=== PATIENT | male | born 1930 | race Caucasian/White ===

== ENCOUNTER 2016-05-20 14:03 | Inpatient (IN) | payer OTHER, MEDICARE ==
[2016-05-20] VITALS (8 sets, daily range): BP systolic 111–145; BP diastolic 62–83; PULSE 82–143; RESP 18–20; TEMP 96.8–98.2; O2SAT 75–100
[~2016-05-20] VITALS: Ht 180.3 cm; Wt 55.3 kg
[~2016-05-20 14:03] MED LIST: ECOT81TA2 PO; LEVO.1 PO; LISI-363 PO; METO25 PO; OMEP20CA5 PO; VITA-13 PO
[2016-05-20] MEDS ORDERED: SODIUM CHLOR 0.9% 1000 ML INJ 1,000 ML IV ONE ×2 (14:30→16:00)
[2016-05-20] MEDS ORDERED: DILTIAZEM HCL 25 MG/5 ML VIAL IV ONE (14:30)
[2016-05-20] MEDS: RESP: ALBUTEROL 2.5 MG/3 ML NEB (SCH) INH ×2 (14:39→14:40)
[2016-05-20 14:58] LABS: AUTOMATED NEUTROPHIL # 13.3 TH/MM3 (1.8-7.7); BASOPHIL % 0.2 % (0.0-2.0); EOSINOPHIL % 0.1 % (0.0-4.0); HEMATOCRIT 36.9 % (39.0-51.0); HEMO FLAGS DIFF FINAL; LYMPH % 7.3 % (9.0-44.0); LYMPHOCYTE # 1.1 TH/MM3 (1.0-4.8); MEAN CELL VOLUME 92.6 FL (80.0-100.0); MEAN CORPUSCULAR HEMOGLOBIN 30.6 PG (27.0-34.0); MEAN CORPUSCULAR HGB CONC 33.1 % (32.0-36.0); MONO % 6.3 % (0.0-8.0); NEUT % 86.1 % (16.0-70.0); PLATELET COUNT 208 TH/MM3 (150-450); RED BLOOD COUNT 3.99 MIL/MM3 (4.50-5.90); WHITE BLOOD COUNT 15.5 TH/MM3 (4.0-11.0)
[2016-05-20 15:12] LABS: APTT (PATIENT) 33.2 SEC (24.3-30.1); INTERNATIONAL NORMALIZED RATIO 1.2 RATIO; PROTHROMBIN TIME - PATIENT 13.1 SEC (9.8-11.6)
[2016-05-20 15:18] LABS: BICARBONATE 24.7 MEQ/L (21.0-32.0); POTASSIUM 3.5 MEQ/L (3.5-5.1)
--- NOTE | 2016-05-20 15:20 | PD ---
HPI Chief Complaint: General Weakness Time Seen by Provider: 15:11 Travel History International Travel<30 days: No Contact w/Intl Traveler<30days: No Traveled to known affect area: No History of Present Illness HPI 86-year-old white male presents to emergency department by EMS for evaluation of shortness of breath and weakness. The patient states that over last 2-3 days he has noted increasing shortness of breath, decreased exercise tolerance, increased cough and malaise. He has not been able to eat. Every time he attempts to eat he gags, chokes and vomits. He has a history of head and neck cancer. He has a tracheostomy. He denies any fever or chills. He does admit to feeling short of breath and having some colored sputum. Nausea with intermittent vomiting, generalized weakness but no focal weakness. He denies any abdominal pain or urinary symptoms. Symptoms are moderate PFSH Past Medical History Narrative Medical Depression, A. fib with RVR, head and neck cancer, vertigo, hypercholesterolemia , PUD, Asthma: No Blood Disorders: No Anxiety: No Depression: Yes Heart Rhythm Problems: Yes Cancer: Yes (NECK, TONGUE) Cardiovascular Problems: Yes (ATRIAL FIBRILLATION) High Cholesterol: Yes Chest Pain: No Congestive Heart Failure: No COPD: No Diabetes: No Diminished Hearing: Yes Endocrine: Yes Gastrointestinal Disorders: Yes (STOMACH ULCER) Glaucoma: No Genitourinary: No Hepatitis: No Hiatal Hernia: No Hypertension: Yes Immune Disorder: No Implanted Vascular Access Dvce: Yes Medical other: Yes (HAS PROSTHESIS IN STOMA ALLOWING HIM TO TALK,ELEVATED CHOLESTEROL) Musculoskeletal: Yes (EXTREME WEAKNESS) Neurologic: Yes (HX VERTIGO, HEADACHES) Psychiatric: Yes Reproductive: No Respiratory: Yes (TRACHEOSTOMY-LEFT RADICAL NECK) Sleep Apnea: No Thyroid Disease: Yes Tetanus Vaccination: Unknown ?: Not Past Surgical History Narrative Surgical Head and neck cancer treatment with tracheostomy, bilateral knee surgery, Abdominal Surgery: Yes (RIGHT INGUINAL HERNIA REPAIR X 2, PARTIAL GASTRECTOMY) AICD: No Body Medical Devices: METAL IN KNEES?, STOMA WITH PROSTHESIS IN NECK, partial gastrectomy Eye Surgery: Yes (NOEMY CATARACT) Genitourinary Surgery: No Joint Replacement: No Neurologic Surgery: Yes (LARYNGECTOMY,TRACHEOSTOMY) Pacemaker: No Other Surgery: Yes (PARTIAL GASTRECTOMY) Social History Alcohol Use: Yes (2 BEERS DAILY) Tobacco Use: No Substance Use: No Allergies-Medications (Allergen,Severity, Reaction): Coded Allergies: Contrast Media (Verified Allergy, Severe, IV IODINE CAUSED HIVES, 02/27/16) Iodine (Verified Allergy, Severe, HIVES, 02/27/16) Reported Meds & Prescriptions Reported Meds & Active Scripts Active Reported Lasix (Furosemide) 20 Mg Tab 20 Mg PO DAILY Aspirin Adult Low Strength (Aspirin) 81 Mg Tabdr 81 Mg PO DAILY Omeprazole 20 Mg Tab 20 Mg PO DAILY Metoprolol Tartrate 50 Mg Tab 25 Mg PO BID Levothyroxine (Levothyroxine Sodium) 100 Mcg Tab 100 Mcg PO DAILY Vitamin D3 (Cholecalciferol) 1,000 Unit Tab 1,000 Units PO DAILY Lisinopril 40 Mg Tab 20 Mg PO BID Meclizine (Meclizine HCl) 12.5 Mg Tab 12.5 Mg PO TID PRN Review of Systems ROS Limitations: Speech Impaired Physical Exam Narrative GENERAL: Well-developed, chronically ill-appearing and emaciated in mild distress. Nontoxic appearing. Patient is noted to be in A. fib with RVR on the monitor. The patient has spontaneously converted to a sinus rhythm during his exam. HEAD: Normocephalic, atraumatic. EYES: Pupils equal round and reactive. Extraocular motions intact. No scleral icterus. No injection or drainage. ENT: Nose clear. Throat without erythema, tonsillar hypertrophy or exudate. Uvula midline. Airway patent. Mucous membranes are dry. NECK: Trachea midline. Supple, nontender, moves head freely. No central bony tenderness or spasm. CARDIOVASCULAR: Tachycardic rate. Which spontaneously converts to sinus rhythm with a normal rate. Occasional skipped beats RESPIRATORY: Overall diminished breath sounds. Unable to truly assess Rales due to lack of air movement. GASTROINTESTINAL: Abdomen soft, non-tender, nondistended. No hepato-splenomegaly , or palpable masses. No guarding. EXTREMITIES: No clubbing, cyanosis, or edema. No joint tenderness. BACK: Nontender without deformity. No flank tenderness. NEUROLOGICAL: Awake, alert and oriented x 3 . Communicates using a dry erase board.Cranial nerves grossly intact. Motor and sensory grossly within normal limits. Nonverbal. Data Data Last Documented VS Vital Signs Date Time Temp Pulse Resp B/P Pulse Ox O2 Delivery O2 Flow Rate FiO2 05/20/16 15:50 102 18 111/62 94 Trach Collar 05/20/16 14:42 6.00 50 05/20/16 14:39 98.2 Orders Diltiazem Inj (Cardizem Inj) (05/20/16 14:30) Sodium Chlor 0.9% 1000 Ml Inj (Ns 1000 M (05/20/16 14:30) Resp Request For Service (05/20/16 14:26) Electrocardiogram (05/20/16 14:26) Complete Blood Count With Diff (05/20/16 14:26) Comprehensive Metabolic Panel (05/20/16 14:26) Troponin I (05/20/16 14:26) Prothrombin Time / Inr (Pt) (05/20/16 14:26) Act Partial Throm Time (Ptt) (05/20/16 14:26) Lipase (05/20/16 14:26) Urinalysis - C+S If Indicated (05/20/16 14:26) Chest, Single Ap (05/20/16 14:26) Iv Access Insert/Monitor (05/20/16 14:26) Ecg Monitoring (05/20/16 14:26) Oximetry (05/20/16 14:26) Albuterol Neb (Albuterol Neb) (05/20/16 14:30) Lactic Acid (05/20/16 14:26) B-Type Natriuretic Peptide (05/20/16 14:30) Sputum Culture And Gram Stain (05/20/16 15:47) Piperacil-Tazo 4.5 Gm Premix (Zosyn 4.5 (05/20/16 15:47) Blood Culture (05/20/16 15:47) Sodium Chlor 0.9% 1000 Ml Inj (Ns 1000 M (05/20/16 16:00) Labs Laboratory Tests Test 05/20/16 05/20/16 05/20/16 14:32 14:55 15:43 White Blood Count 15.5 TH/MM3 Red Blood Count 3.99 MIL/MM3 Hemoglobin 12.2 GM/DL Hematocrit 36.9 % Mean Corpuscular Volume 92.6 FL Mean Corpuscular Hemoglobin 30.6 PG Mean Corpuscular Hemoglobin 33.1 % Concent Red Cell Distribution Width 14.0 % Platelet Count 208 TH/MM3 Mean Platelet Volume 7.7 FL Neutrophils (%) (Auto) 86.1 % Lymphocytes (%) (Auto) 7.3 % Monocytes (%) (Auto) 6.3 % Eosinophils (%) (Auto) 0.1 % Basophils (%) (Auto) 0.2 % Neutrophils # (Auto) 13.3 TH/MM3 Lymphocytes # (Auto) 1.1 TH/MM3 Monocytes # (Auto) 1.0 TH/MM3 Eosinophils # (Auto) 0.0 TH/MM3 Basophils # (Auto) 0.0 TH/MM3 CBC Comment DIFF FINAL Differential Comment Prothrombin Time 13.1 SEC Prothromb Time International 1.2 RATIO Ratio Activated Partial 33.2 SEC Thromboplast Time Sodium Level 137 MEQ/L Potassium Level 3.5 MEQ/L Chloride Level 98 MEQ/L Carbon Dioxide Level 24.7 MEQ/L Anion Gap 14 MEQ/L Blood Urea Nitrogen 12 MG/DL Creatinine 0.70 MG/DL Estimat Glomerular Filtration 107 ML/MIN Rate Random Glucose 72 MG/DL Calcium Level 7.1 MG/DL Protein Corrected Calcium 8.3 MG/DL Total Bilirubin 0.7 MG/DL Aspartate Amino Transf 21 U/L (AST/SGOT) Alanine Aminotransferase 20 U/L (ALT/SGPT) Alkaline Phosphatase 118 U/L Troponin I 0.03 NG/ML Total Protein 4.9 GM/DL Albumin 1.9 GM/DL Lipase 52 U/L Lactic Acid Level 2.8 mmol/L Urine Color YELLOW Urine Turbidity CLEAR Urine pH 5.0 Urine Specific [place] 1.017 Urine Protein 30 mg/dL Urine Glucose (UA) NEG mg/dL Urine Ketones 10 mg/dL Urine Occult Blood NEG Urine Nitrite NEG Urine Bilirubin NEG Urine Urobilinogen 2.0 MG/DL Urine Leukocyte Esterase NEG Urine RBC 2 /hpf Urine WBC 2 /hpf Urine Squamous Epithelial 1 /hpf Cells Urine Hyaline Casts 9 /lpf Urine Mucus FEW /lpf Microscopic Urinalysis Comment CULT NOT INDICATED MDM Medical Decision Making Medical Screen Exam Complete: Yes Emergency Medical Condition: Yes Interpretation(s) Laboratory Tests Test 05/20/16 05/20/16 05/20/16 14:32 14:55 15:43 White Blood Count 15.5 TH/MM3 Red Blood Count 3.99 MIL/MM3 Hemoglobin 12.2 GM/DL Hematocrit 36.9 % Mean Corpuscular Volume 92.6 FL Mean Corpuscular Hemoglobin 30.6 PG Mean Corpuscular Hemoglobin 33.1 % Concent Red Cell Distribution Width 14.0 % Platelet Count 208 TH/MM3 Mean Platelet Volume 7.7 FL Neutrophils (%) (Auto) 86.1 % Lymphocytes (%) (Auto) 7.3 % Monocytes (%) (Auto) 6.3 % Eosinophils (%) (Auto) 0.1 % Basophils (%) (Auto) 0.2 % Neutrophils # (Auto) 13.3 TH/MM3 Lymphocytes # (Auto) 1.1 TH/MM3 Monocytes # (Auto) 1.0 TH/MM3 Eosinophils # (Auto) 0.0 TH/MM3 Basophils # (Auto) 0.0 TH/MM3 CBC Comment DIFF FINAL Differential Comment Prothrombin Time 13.1 SEC Prothromb Time International 1.2 RATIO Ratio Activated Partial 33.2 SEC Thromboplast Time Sodium Level 137 MEQ/L Potassium Level 3.5 MEQ/L Chloride Level 98 MEQ/L Carbon Dioxide Level 24.7 MEQ/L Anion Gap 14 MEQ/L Blood Urea Nitrogen 12 MG/DL Creatinine 0.70 MG/DL Estimat Glomerular Filtration 107 ML/MIN Rate Random Glucose 72 MG/DL Calcium Level 7.1 MG/DL Protein Corrected Calcium 8.3 MG/DL Total Bilirubin 0.7 MG/DL Aspartate Amino Transf 21 U/L (AST/SGOT) Alanine Aminotransferase 20 U/L (ALT/SGPT) Alkaline Phosphatase 118 U/L Troponin I 0.03 NG/ML Total Protein 4.9 GM/DL Albumin 1.9 GM/DL Lipase 52 U/L Lactic Acid Level 2.8 mmol/L Urine Color YELLOW Urine Turbidity CLEAR Urine pH 5.0 Urine Specific [place] 1.017 Urine Protein 30 mg/dL Urine Glucose (UA) NEG mg/dL Urine Ketones 10 mg/dL Urine Occult Blood NEG Urine Nitrite NEG Urine Bilirubin NEG Urine Urobilinogen 2.0 MG/DL Urine Leukocyte Esterase NEG Urine RBC 2 /hpf Urine WBC 2 /hpf Urine Squamous Epithelial 1 /hpf Cells Urine Hyaline Casts 9 /lpf Urine Mucus FEW /lpf Microscopic Urinalysis Comment CULT NOT INDICATED CBC & BMP Diagram 05/20/16 14:32 Last 24 hours Impressions Chest X-Ray 05/20/16 1426 Signed Impressions: Service Date/Time: Friday, May 20, 2016 14:52 - CONCLUSION: Hyperaeration suggesting COPD. Subtle nonspecific slight increased opacity in lung bases which could represent small effusion or parenchymal process Anastacio Young MD EKG: A. fib with a ventricular rate of 96. Left bundle branch block, LVH by voltage criteria. Differential Diagnosis Differential diagnoses: Aspiration pneumonia, pneumonia, CHF, mucous plugging, A. fib with RVR, high out failure, PA, dehydration, likely abnormality, bowel obstruction, esophageal stricture Narrative Course IV access is obtained. Patient's given a liter bolus of saline. Initially had ordered 10 mg of Cardizem IV for his A. fib with RVR but he spontaneously resolved. Routine laboratory tests. Stoma mask with aerosolized saline and albuterol. EKG now shows a ventricular rate of 96 with atrial fibrillation, LVH and left bundle-branch block. Patient has had a total 2 blood cultures drawn, he has a mildly elevated lactic acid at 2.6. The patient is given Zosyn IV. He has had a total of 2 L of normal saline IV. A sputum culture has also been sent. The patient is having difficulty taking oral intake, he is having episodes of vomiting. There is some concern that he potentially could have an early developing aspiration. He had diminished breath sounds on presentation and he also had been complaining of dyspnea. This is sepsis, leukocytosis, history of A. fib with RVR, dyspnea, dehydration I discussed the case with Dr. Vo who is agreed to admit the patient Diagnosis Primary Impression: Sepsis Qualified Code: A41.9 - Sepsis, due to unspecified organism Additional Impressions: Leukocytosis Qualified Code: D72.829 - Leukocytosis, unspecified type Dyspnea Qualified Code: R06.02 - Shortness of breath Dysphasia Atrial fibrillation with RVR Throat cancer Condition: Stable Yoav Ty May 20, 2016 15:20
[2016-05-20 15:24] LABS: CALCIUM-PROTEIN CORRECTED 8.3 MG/DL (8.5-10.1); TOTAL BILIRUBIN ADULT 0.7 MG/DL (0.2-1.0)
[2016-05-20] MEDS ORDERED: LISI40TA PO (15:28)
[2016-05-20] MEDS ORDERED: OMEP20TA PO (15:28)
[2016-05-20] MEDS ORDERED: MECL12.574 PO (15:28)
[2016-05-20] MEDS ORDERED: METO50TA PO (15:28)
[2016-05-20] MEDS ORDERED: VITA100018 PO (15:28)
[2016-05-20] MEDS ORDERED: LEVO100T5 PO (15:28)
[2016-05-20] MEDS ORDERED: FURO1TAB62 PO (15:28)
[2016-05-20] MEDS ORDERED: ASPI1TAB91 PO (15:28)
--- NOTE | 2016-05-20 15:29 | RADRPT ---
EXAM DATE/TIME: 05/20/2016 14:52 [facility] COMPARISON: CHEST SINGLE AP, January 29, 2016, 21:02. INDICATIONS : Short of breath. MEDICAL HISTORY : Tongue and neck cancer SURGICAL HISTORY : Tongue and neck. ENCOUNTER: Initial ACUITY: 1 day PAIN SCORE: 0/10 LOCATION: Bilateral chest FINDINGS: Relative to prior examination there is again noted to be hyperaeration. There is a sugg estion of increased density in the bases which could represent subtle parenchymal or effusion changes CONCLUSION: Hyperaeration suggesting COPD. Subtle nonspecific slight increased opacity in lung ba ses which could represent small effusion or parenchymal process Anastacio Young MD on May 20, 2016 at 15:25 Board Certified Radiologist. This report was verified electronically.
[2016-05-20] MEDS ORDERED: PIPERACIL-TAZO 4.5 GM PREMIX 100 ML IV STA (15:47)
[2016-05-20 16:09] LABS: BLOOD, URINE NEG (NEG); COMMENT (UR) CULT NOT INDICATED; CULTURE IF INDICATED CULT NOT INDICATED; GLUCOSE,URINE NEG (NEG); HYALINE CAST, URINE 9 /lpf (RARE); KETONE, URINE 10 mg/dL (NEG); MUCUS URINE FEW /lpf (OCC); NITRITE,URINE NEG (NEG); SQUAMOUS EPITHELIAL CELL URINE 1 /hpf (0-5); URINE COLOR YELLOW (YELLW/STRAW)
[2016-05-20] MEDS ORDERED: SODIUM CHLOR 0.9% 1000 ML INJ 1,000 ML IV SCH (18:16)
[2016-05-20] MEDS ORDERED: SODIUM CHLORIDE 0.9% FLUSH 5 ML FLUSH FLUSH PRN (18:30)
[2016-05-20] MEDS ORDERED: DEXT 5%-NACL 0.9% 1000 ML INJ 1,000 ML IV SCH (18:30)
[2016-05-20] MEDS ORDERED: SENNOSIDES 8.6 MG TAB PO PRN (18:30)
[2016-05-20] MEDS ORDERED: NALOXONE HCL 0.4 MG/ML AMP IV PRN (18:30)
[2016-05-20] MEDS: DOCUSATE SODIUM 100 MG CAP PO SCH (18:30)
[2016-05-20] MEDS ORDERED: ACETAMINOPHEN 325 MG TAB PO PRN ×2 (18:30)
[2016-05-20] MEDS: SODIUM CHLORIDE 0.9% FLUSH 5 ML FLUSH FLUSH SCH (21:00)
[2016-05-21] VITALS (7 sets, daily range): BP systolic 115–153; BP diastolic 68–85; PULSE 62–97; RESP 16–24; TEMP 95.3–96.6; O2SAT 95–98
--- NOTE | 2016-05-21 02:10 | HHI.HP ---
[facility] Vamshi Wade M.D. Admission Diagnosis sepsis, leukocytosis, history of A. fib with RVR, dyspnea, dehydrati Diagnoses: Chief Complaint: Cannot get up for more than 5 seconds, not able to walk for more than 15 steps, gets dizzy whenever and lift my head up. Urine frequency Travel History International Travel<30 Days: No Contact w/Intl Traveler <30 Da: No Traveled to Known Affected Are: No History of Present Illness History from patient, ER PA communication, and review of medical records. Patient reported that he came to the hospital because he has not been able to get out of bed for more than 5 seconds, not able to walk for more than 15 steps , with associated dizziness every time he moves his head up and down. He also stated that every time he tries to get up, his heart rate would go very high. He reports that he did have surgery done for the head and neck cancer. He is noted to be on tracheostomy. She states that she has been on it for at least past one year. His cancer was diagnosed 30 years ago. He states that he sees his ENT doctor for this tracheostomy and did have to go through dilations because of the stoma being too narrow. He does report sometimes food getting stuck there. Patient reports that he was being offered feeding tube by his doctor for PEG tube placement previously. However he is initially not agreeable to this and he was still continuing to take his medications and food by mouth. He denies any fever at home. Denies any significant cough. He is noted to be coughing though. He states this is chronic. Denies any nausea/vomiting/diarrhea/urinary burning or pain on urination. Next I denies any hematemesis/hematochezia/melena/hematuria. Patient reports he has been having this trach tube for the past 1 year. He reports he takes care of it himself at home. He has a appraiser oil and water who is 84 years old. However states that she is not able to care for him. He states he still driving. Review of Systems Constitutional: COMPLAINS OF: Fatigue, Weight loss, Dizziness, DENIES: Diaphoretic episodes, Fever, Weight gain, Night Sweats Endocrine: DENIES: Polydipsia, Polyuria, Polyphagia Respiratory: COMPLAINS OF: Cough, Wheezing, Sputum production, Shortness of breath, DENIES: Apneas, Snoring, Hemoptysis Cardiovascular: COMPLAINS OF: Syncope, DENIES: Chest pain, Palpitations, Dyspnea on Exertion, PND, Lower Extremity Edema, Orthopnea Gastrointestinal: DENIES: Abdominal pain, Black stools, Bloody stools, Constipation, Diarrhea, Nausea, Vomiting Genitourinary: DENIES: Urinary frequency, Urinary incontinence, Urgency, Hematuria, Dysuria, Nocturia, Testicular Swelling Musculoskeletal: COMPLAINS OF: Joint Swelling Hematologic/lymphatic: DENIES: Bruising, Lymphadenopathy Neurologic: DENIES: Abnormal gait, Headache, Localized weakness, Paresthesias, Seizures, Speech Problems, Tremor, Poor Balance Psychiatric: COMPLAINS OF: Confusion Past Family Social History Past Medical History head and neck ca - diagnosed 30 years ago. Status post chemotherapy, radiation therapy. trach placement for past one year. Hypertension Atrial fibrillation Hyperlipidemia CHFEF of 35-40% per echo in August 2015. Grade 1 diastolic heart failure as well. PUD Past Surgical History Tracheostomy placements Surgery for head and neck cancer Reported Medications meds list on emr reviewed Reported this was gone through with him. Allergies: Coded Allergies: Contrast Media (Verified Allergy, Severe, IV IODINE CAUSED HIVES, 02/27/16) Iodine (Verified Allergy, Severe, HIVES, 02/27/16) Family History Denies any family history of any medical conditions Social History He is to smoke cigarettes, quit many years ago. Denies any drug abuse. Reports he does drink alcohol. He states he does drink heavily. However does not really quantify how much. He states he has been drinking in the past 1 year. Denies any prior history of withdrawal. Physical Exam Vital Signs Vital Signs Date Time Temp Pulse Resp B/P Pulse Ox O2 Delivery O2 Flow Rate FiO2 05/20/16 22:30 99 Trach Collar 6.00 28 05/20/16 21:00 96.8 95 18 145/83 98 05/20/16 19:14 82 18 144/75 100 Trach Collar 6 05/20/16 18:28 96 Trach Collar 6.00 40 05/20/16 15:50 102 18 111/62 94 Trach Collar 05/20/16 14:42 97 Trach Collar 6.00 50 05/20/16 14:39 98.2 99 18 113/82 97 Trach Collar 6 05/20/16 14:39 98.1 88 18 113/82 98 Trach Collar 6 05/20/16 14:39 103 18 97 Trach Collar 6 05/20/16 14:24 97.6 143 20 113/82 93 Physical Exam GENERAL: This is a cachectic elderly gentleman in no apparent distress. SKIN: No rashes, ecchymoses or lesions. Cool and dry. HEAD: Atraumatic. Normocephalic. No temporal or scalp tenderness. Temporal wasting. EYES: Pupils equal round and reactive. Extraocular motions intact. No scleral icterus. No injection or drainage. ENT: Nose without bleeding, purulent drainage or septal hematoma. Throat without erythema, tonsillar hypertrophy or exudate. Uvula midline. Airway patent. NECK: Trachea midline. No JVD or lymphadenopathy. Supple, nontender, no meningeal signs. CARDIOVASCULAR: Regular rate and rhythm without murmurs, gallops, or rubs. RESPIRATORY: Clear to auscultation. Breath sounds equal bilaterally. No wheezes , rales, or rhonchi. GASTROINTESTINAL: Abdomen soft, non-tender, nondistended. No hepato-splenomegaly , or palpable masses. No guarding. MUSCULOSKELETAL: Extremities without clubbing, cyanosis, or edema. No joint tenderness, effusion, or edema noted. No calf tenderness. Negative Homans sign bilaterally. NEUROLOGICAL: Awake and alert. Motor and sensory grossly within normal limits. Normal speech. Laboratory Laboratory Tests Test 05/20/16 05/20/16 05/20/16 14:32 14:55 15:43 White Blood Count 15.5 Red Blood Count 3.99 Hemoglobin 12.2 Hematocrit 36.9 Mean Corpuscular Volume 92.6 Mean Corpuscular Hemoglobin 30.6 Mean Corpuscular Hemoglobin 33.1 Concent Red Cell Distribution Width 14.0 Platelet Count 208 Mean Platelet Volume 7.7 Neutrophils (%) (Auto) 86.1 Lymphocytes (%) (Auto) 7.3 Monocytes (%) (Auto) 6.3 Eosinophils (%) (Auto) 0.1 Basophils (%) (Auto) 0.2 Neutrophils # (Auto) 13.3 Lymphocytes # (Auto) 1.1 Monocytes # (Auto) 1.0 Eosinophils # (Auto) 0.0 Basophils # (Auto) 0.0 CBC Comment DIFF FINAL Differential Comment Prothrombin Time 13.1 Prothromb Time International 1.2 Ratio Activated Partial 33.2 Thromboplast Time Sodium Level 137 Potassium Level 3.5 Chloride Level 98 Carbon Dioxide Level 24.7 Anion Gap 14 Blood Urea Nitrogen 12 Creatinine 0.70 Estimat Glomerular Filtration 107 Rate Random Glucose 72 Calcium Level 7.1 Protein Corrected Calcium 8.3 Total Bilirubin 0.7 Aspartate Amino Transf 21 (AST/SGOT) Alanine Aminotransferase 20 (ALT/SGPT) Alkaline Phosphatase 118 Troponin I 0.03 B-Type Natriuretic Peptide 354 Total Protein 4.9 Albumin 1.9 Lipase 52 Lactic Acid Level 2.8 Urine Color YELLOW Urine Turbidity CLEAR Urine pH 5.0 Urine Specific [place] 1.017 Urine Protein 30 Urine Glucose (UA) NEG Urine Ketones 10 Urine Occult Blood NEG Urine Nitrite NEG Urine Bilirubin NEG Urine Urobilinogen 2.0 Urine Leukocyte Esterase NEG Urine RBC 2 Urine WBC 2 Urine Squamous Epithelial 1 Cells Urine Hyaline Casts 9 Urine Mucus FEW Microscopic Urinalysis Comment CULT NOT INDICATED Date/Time Procedure Status Source Growth 05/20/16 16:20 Gram Stain Received Sputum Expectorated Sputum Pending 05/20/16 16:20 Sputum Culture Received Sputum Expectorated Sputum Pending 05/20/16 16:20 Aerobic Blood Culture Received Blood Peripheral Pending 05/20/16 16:20 Anaerobic Blood Culture Received Blood Peripheral Pending Result Diagram: 05/20/16 1432 05/20/16 1432 Imaging Vital Signs Date Time Temp Pulse Resp B/P Pulse Ox O2 Delivery O2 Flow Rate FiO2 05/21/16 04:00 96.3 97 18 146/82 95 05/21/16 00:00 96.6 97 18 115/75 95 05/20/16 22:30 99 Trach Collar 6.00 28 05/20/16 21:00 96.8 95 18 145/83 98 05/20/16 19:14 82 18 144/75 100 Trach Collar 6 05/20/16 18:28 96 Trach Collar 6.00 40 05/20/16 15:50 102 18 111/62 94 Trach Collar 05/20/16 14:42 97 Trach Collar 6.00 50 05/20/16 14:39 98.2 99 18 113/82 97 Trach Collar 6 05/20/16 14:39 98.1 88 18 113/82 98 Trach Collar 6 05/20/16 14:39 103 18 97 Trach Collar 6 05/20/16 14:24 97.6 143 20 113/82 93 Assessment and Plan Problem List: (1) Dysphagia ICD Code: R13.10 Status: Acute (2) Protein calorie malnutrition ICD Code: E46 Status: Acute Assessment and Plan Impression: Dysphagia Cachexia Failure to thrive Symptomatic orthostatic hypotensionper history head and neck ca - diagnosed 30 years ago. Status post chemotherapy, radiation therapy. trach placement for past one year. Hypertension Atrial fibrillation CHFEF of 35-40% per echo in August 2015. Grade 1 diastolic heart failure as well. Hyperlipidemia PUD Plan: I have had long discussion with patient regarding his treatment options. I have explained to him in detail regarding the feeding tube. Patient is agreeable to have the feeding tube placement at this time. He would rather get it done while in hospital. He does have questions regarding insurance coverage. GI consult for PEG tube placement. Speech and swallow evaluation. Case management consult. Aspiration precautions. Physical therapy consult. DVT prophylaxiswith Lovenox. Discussed Condition With Patient, nursing staff Physician Certification 2 Midnight Certification Type: Admission for Inpatient Services Order for Inpatient Services The services are ordered in accordance with Medicare regulations or non- Medicare payer requirements, as applicable. In the case of services not specified as inpatient-only, they are appropriately provided as inpatient services in accordance with the 2-midnight benchmark. Estimated LOS (days): 3 days is the estimated time the patient will need to remain in the hospital, assuming treatment plan goals are met and no additional complications. Post-Hospital Plan: Home Campbell Yarbrough MD May 21, 2016 02:10
[2016-05-21] MEDS ORDERED: TEMAZEPAM 7.5 MG CAP PO ONE (02:15)
[2016-05-21] MEDS: DOCUSATE SODIUM 100 MG CAP PO SCH ×2 (06:30→18:25)
[2016-05-21 06:56] LABS: BICARBONATE 25.7 MEQ/L (21.0-32.0); CALCIUM-PROTEIN CORRECTED 8.3 MG/DL (8.5-10.1); TOTAL BILIRUBIN ADULT 0.8 MG/DL (0.2-1.0)
[2016-05-21 07:02] LABS: POTASSIUM 3.2 MEQ/L (3.5-5.1)
[2016-05-21 07:13] LABS: HEMATOCRIT 31.8 % (39.0-51.0); MEAN CELL VOLUME 89.9 FL (80.0-100.0); MEAN CORPUSCULAR HEMOGLOBIN 31.7 PG (27.0-34.0); MEAN CORPUSCULAR HGB CONC 35.3 % (32.0-36.0); PLATELET COUNT 186 TH/MM3 (150-450); RED BLOOD COUNT 3.54 MIL/MM3 (4.50-5.90); RED CELL DISTRIBUTION WIDTH 14.1 % (11.6-17.2); WHITE BLOOD COUNT 11.2 TH/MM3 (4.0-11.0)
[2016-05-21 07:18] LABS: HEMO FLAGS AUTO DIFF
[2016-05-21] MEDS: LEVOTHYROXINE SODIUM 100 MCG TAB PO SCH (07:44)
[2016-05-21 08:47] LABS: BANDS 4 % (0-6); EOSINOPHILS 2 % (0-4); NEUTROPHIL # MANUAL DIFF 8.7 TH/MM3 (1.8-7.7); PLATELET ESTIMATE SMEAR NORMAL (NORMAL); POLYS (SEG NEUTROPHILS) 74 % (16-70); SCAN/DIFF FINAL DIFF MANUAL; WBC DIFF SAMPLE 100
[2016-05-21 08:48] LABS: PLATELET MORPHOLOGY NORMAL (NORMAL)
[2016-05-21] MEDS: ENOXAPARIN SODIUM 40 MG/0.4 ML SYRINGE SQ SCH (09:32)
[2016-05-21] MEDS: SODIUM CHLORIDE 0.9% FLUSH 5 ML FLUSH FLUSH SCH ×2 (09:32→21:00)
[2016-05-21] MEDS: CHOLECALCIFEROL (VIT D3) 1000 UNIT TAB PO SCH (09:32)
[2016-05-21] MEDS: PANTOPRAZOLE SOD 20 MG DELAYED RELEASE TAB PO SCH (09:32)
[2016-05-21] MEDS: ASPIRIN EC 81 MG TABEC PO SCH (09:32)
[2016-05-21] MEDS: METOPROLOL TARTRATE 25 MG TAB PO SCH ×2 (09:35→22:44)
[2016-05-21] MEDS: POTASSIUM CHLORIDE INJ 30 MEQ in DEXT 5%-NACL 0.9% 1000 ML INJ 1,000 ML IV SCH (09:49)
--- NOTE | 2016-05-21 10:41 | PD.CONS ---
HPI History of Present Illness This is a 86 year old male with history of laryngeal cancer,s/p total laryngectomy, s/p radiation therapy, tongue lesion s/p transoral resection at [facility]. He has had issues with dysphagia s/p dilatation by ENT with minimal success. GI services have been consulted for PEG tube placement, patient has been resistant to PEG tube placement in the past. He is going to eval today. ENT on the case. Patient is agreeing to the PEG tube now. Communication done by using a board for writing questions and answers. (Ida Mosqueda) PFSH Past Medical History head and neck ca - diagnosed 30 years ago. Status post chemotherapy, radiation therapy. trach placement for past one year. Hypertension Atrial fibrillation Hyperlipidemia CHFEF of 35-40% per echo in August 2015. Grade 1 diastolic heart failure as well. PUD Past Surgical History Tracheostomy placements Surgery for head and neck cancer (Ida Mosqueda) Coded Allergies: Contrast Media (Verified Allergy, Severe, IV IODINE CAUSED HIVES, 02/27/16) Iodine (Verified Allergy, Severe, HIVES, 02/27/16) Family History Denies any family history of any medical conditions Social History He is to smoke cigarettes, quit many years ago. Denies any drug abuse. Reports he does drink alcohol. He states he does drink heavily. However does not really quantify how much. He states he has been drinking in the past 1 year. (Ida Mosqueda) Review of Systems Constitutional: COMPLAINS OF: Fatigue, Dizziness Eyes: DENIES: Photosensitivity Ears, nose, mouth, throat: DENIES: Hoarseness Respiratory: DENIES: Shortness of breath Cardiovascular: DENIES: Lower Extremity Edema Gastrointestinal: COMPLAINS OF: Difficulty Swallowing, Anorexia, DENIES: Abdominal pain, Black stools, Bloody stools, Constipation, Diarrhea, Nausea, Vomiting, Swelling of Abdomen, Heartburn, Hematemesis Genitourinary: DENIES: Hematuria Integumentary: DENIES: Jaundice Hematologic/lymphatic: DENIES: Bruising Immunologic/allergic: DENIES: Eczema Neurologic: COMPLAINS OF: Localized weakness, DENIES: Headache Psychiatric: COMPLAINS OF: Anxiety (Ida Mosqueda) GI Exam Vitals I&O Vital Signs Date Time Temp Pulse Resp B/P Pulse Ox O2 Delivery O2 Flow Rate FiO2 05/21/16 08:00 96.3 68 16 153/68 98 05/21/16 04:00 96.3 97 18 146/82 95 05/21/16 00:00 96.6 97 18 115/75 95 05/20/16 22:30 99 Trach Collar 6.00 28 05/20/16 21:00 96.8 95 18 145/83 98 05/20/16 19:14 82 18 144/75 100 Trach Collar 6 05/20/16 18:28 96 Trach Collar 6.00 40 05/20/16 15:50 102 18 111/62 94 Trach Collar 05/20/16 14:42 97 Trach Collar 6.00 50 05/20/16 14:39 98.2 99 18 113/82 97 Trach Collar 6 05/20/16 14:39 98.1 88 18 113/82 98 Trach Collar 6 05/20/16 14:39 103 18 97 Trach Collar 6 05/20/16 14:24 97.6 143 20 113/82 93 I/O 05/20/16 05/20/16 05/20/16 05/21/16 05/21/16 05/21/16 06:59 14:59 22:59 06:59 14:59 22:59 Intake Total 293 ml 0 ml Output Total 0 ml Balance 293 ml 0 ml Intake Oral 0 ml 0 ml IV Total 293 ml Output Urine Total 0 ml # Voids 0 0 # Bowel Movements 0 0 Imaging Last Impressions Chest X-Ray 05/20/16 1426 Signed Impressions: Service Date/Time: Friday, May 20, 2016 14:52 - CONCLUSION: Hyperaeration suggesting COPD. Subtle nonspecific slight increased opacity in lung bases which could represent small effusion or parenchymal process Anastacio Young MD Laboratory Test 05/20/16 05/20/16 05/20/16 05/21/16 14:32 14:55 15:43 06:06 White Blood Count 15.5 TH/MM3 11.2 TH/MM3 Red Blood Count 3.99 MIL/MM3 3.54 MIL/MM3 Hemoglobin 12.2 GM/DL 11.2 GM/DL Hematocrit 36.9 % 31.8 % Mean Corpuscular Volume 92.6 FL 89.9 FL Mean Corpuscular Hemoglobin 30.6 PG 31.7 PG Mean Corpuscular Hemoglobin 33.1 % 35.3 % Concent Red Cell Distribution Width 14.0 % 14.1 % Platelet Count 208 TH/MM3 186 TH/MM3 Mean Platelet Volume 7.7 FL 7.8 FL Neutrophils (%) (Auto) 86.1 % % Lymphocytes (%) (Auto) 7.3 % % Monocytes (%) (Auto) 6.3 % % Eosinophils (%) (Auto) 0.1 % % Basophils (%) (Auto) 0.2 % % Neutrophils # (Auto) 13.3 TH/MM3 TH/MM3 Lymphocytes # (Auto) 1.1 TH/MM3 TH/MM3 Monocytes # (Auto) 1.0 TH/MM3 TH/MM3 Eosinophils # (Auto) 0.0 TH/MM3 TH/MM3 Basophils # (Auto) 0.0 TH/MM3 TH/MM3 CBC Comment DIFF FINAL AUTO DIFF Differential Comment FINAL DIFF MANUAL Prothrombin Time 13.1 SEC Prothromb Time International 1.2 RATIO Ratio Activated Partial 33.2 SEC Thromboplast Time Sodium Level 137 MEQ/L 139 MEQ/L Potassium Level 3.5 MEQ/L 3.2 MEQ/L Chloride Level 98 MEQ/L 103 MEQ/L Carbon Dioxide Level 24.7 MEQ/L 25.7 MEQ/L Anion Gap 14 MEQ/L 10 MEQ/L Blood Urea Nitrogen 12 MG/DL 12 MG/DL Creatinine 0.70 MG/DL 0.71 MG/DL Estimat Glomerular Filtration 107 ML/MIN 105 ML/MIN Rate Random Glucose 72 MG/DL 98 MG/DL Calcium Level 7.1 MG/DL 7.0 MG/DL Protein Corrected Calcium 8.3 MG/DL 8.3 MG/DL Total Bilirubin 0.7 MG/DL 0.8 MG/DL Aspartate Amino Transf 21 U/L 31 U/L (AST/SGOT) Alanine Aminotransferase 20 U/L 17 U/L (ALT/SGPT) Alkaline Phosphatase 118 U/L 107 U/L Troponin I 0.03 NG/ML B-Type Natriuretic Peptide 354 PG/ML Total Protein 4.9 GM/DL 4.7 GM/DL Albumin 1.9 GM/DL 1.8 GM/DL Lipase 52 U/L Lactic Acid Level 2.8 mmol/L Urine Color YELLOW Urine Turbidity CLEAR Urine pH 5.0 Urine Specific Draper 1.017 Urine Protein 30 mg/dL Urine Glucose (UA) NEG mg/dL Urine Ketones 10 mg/dL Urine Occult Blood NEG Urine Nitrite NEG Urine Bilirubin NEG Urine Urobilinogen 2.0 MG/DL Urine Leukocyte Esterase NEG Urine RBC 2 /hpf Urine WBC 2 /hpf Urine Squamous Epithelial 1 /hpf Cells Urine Hyaline Casts 9 /lpf Urine Mucus FEW /lpf Microscopic Urinalysis Comment CULT NOT INDICATED Differential Total Cells 100 Counted Neutrophils % (Manual) 74 % Band Neutrophils % 4 % Lymphocytes % 15 % Monocytes % 5 % Eosinophils % 2 % Neutrophils # (Manual) 8.7 TH/MM3 Platelet Estimate NORMAL Platelet Morphology Comment NORMAL Date/Time Procedure Status Source Growth 05/21/16 06:06 Aerobic Blood Culture Received Blood Peripheral Pending 05/21/16 06:06 Anaerobic Blood Culture Received Blood Peripheral Pending 05/20/16 16:20 Gram Stain Received Sputum Expectorated Sputum Pending 05/20/16 16:20 Sputum Culture Received Sputum Expectorated Sputum Pending Physical Examination HEENT:normocephalic; atraumatic; no jaundice. NECK: Neck is supple, no JVD, no lymphadenopathy, trach CHEST: Chest is clear to auscultation and percussion. CARDIAC: Regular rate and rhythm with no murmur gallop or rubs. ABDOMEN: Soft, nondistended, nontender; no hepatosplenomegaly; bowel sounds are present in all four quadrants. EXTREMITIES: No clubbing, cyanosis, or edema. SKIN: Normal; no rash; no jaundice. FURNACE WORKER: alert and oriented times three. (Ida Mosqueda) Assessment and Plan Plan - Dysphagia, failure to thrive, Cachexia- history of laryngeal cancer,s/p total laryngectomy, s/p radiation therapy, tongue lesion s/p transoral resection at [facility]. He has had issues with dysphagia s/p dilatation by ENT with minimal success. GI services have been consulted for PEG tube placement , patient has been resistant to PEG tube placement in the past. He is going to BS eval today. ENT on the case. Patient is agreeing to the PEG tube now. Communication done by using a board for writing questions and answers. - History of laryngeal cancer,s/p total laryngectomy, s/p radiation therapy, tongue lesion s/p transoral resection at [facility]. Plan: - EGD/PEG in the am - NPO mn - Obtain consents - Ancef nutrition services assistant to GI - Await BS - Supportive care - Patient seen and examined by Dr. Cheatham and myself and this note is written on his behalf. (Ida Mosqueda) Physician Comments Seen and examined, plan as above, will proceed with EGD/PEG placement in AM. ( Mariluz Cheatham MD) Ida Mosqueda May 21, 2016 10:41 Mariluz Cheatham MD May 21, 2016 15:14
[2016-05-21] MEDS ORDERED: cefTRIAXone INJ 2,000 MG in SODIUM CHLORIDE 0.9% INJ 100 ML IV PRN (10:45)
[2016-05-21] MEDS ORDERED: ceFAZolin 2 GM PREMIX 50 ML IV PRN (11:00)
--- NOTE | 2016-05-21 11:25 | RADRPT ---
EXAM DATE/TIME: 05/21/2016 10:25 [facility] COMPARISON: No previous studies available for comparison. INDICATIONS : Dysphagia. FLUORO TIME: 3.1 minutes IMAGE COUNT: 2 CONTRAST: Dose as prescribed by speech pathologist. MEDICAL HISTORY : Tongue and neck cancer. SURGICAL HISTORY : laryngectomy 30 years ago. Trach 1 year ago. ENCOUNTER: Subsequent ACUITY: 2 days PAIN SCORE: 0/10 LOCATION: Bilateral Esophagus. FINDINGS: A modified barium swallow was performed with speech pathology. Patient was given a variety of liquids to swallow. At fluoroscopy there is marked deformity of the cervical esophagus patient apparently post laryngecto my and this almost has the appearance of aspiration silent type. Subsequent AP upright chest revealed some contrast in the distal esophagus without contrast in the lung cantu therefore eliminated aspir ation. For a full detailed report, see report by the speech pathologist. CONCLUSION: Postsurgical deformity of the cervical esophagus without evidence of penetration or aspiration as jalen cribed. Please see speech pathology report Anastacio Young MD on May 21, 2016 at 11:22 Board Certified Radiologist. This report was verified electronically.
--- NOTE | 2016-05-21 23:24 | EKG ---
Date Performed: 05/20/2016 Time Performed: 14:49:39 PTAGE: 86 years EKG: ATRIAL FIBRILLATION LEFT BUNDLE BRANCH BLOCK ABNORMAL ECG NO PREVIOUS TRACING DOCTOR: Abner Gillis Interpretating Date/Time 05/21/2016 23:16:48
[2016-05-22] VITALS (9 sets, daily range): BP systolic 130–168; BP diastolic 74–92; PULSE 70–120; RESP 18–20; TEMP 95.9–98.3; O2SAT 94–100
[2016-05-22] MEDS: LEVOTHYROXINE SODIUM 100 MCG TAB PO SCH (06:09)
[2016-05-22] MEDS: POTASSIUM CHLORIDE INJ 30 MEQ in DEXT 5%-NACL 0.9% 1000 ML INJ 1,000 ML IV SCH (06:13)
[2016-05-22] MEDS: DOCUSATE SODIUM 100 MG CAP PO SCH ×2 (06:14→15:10)
[2016-05-22] MEDS: ASPIRIN EC 81 MG TABEC PO SCH (07:10)
[2016-05-22] MEDS: ENOXAPARIN SODIUM 40 MG/0.4 ML SYRINGE SQ SCH (07:10)
[2016-05-22] MEDS: PANTOPRAZOLE SOD 20 MG DELAYED RELEASE TAB PO SCH (08:14)
[2016-05-22] MEDS: SODIUM CHLORIDE 0.9% FLUSH 5 ML FLUSH FLUSH SCH ×2 (08:16→21:00)
[2016-05-22] MEDS: METOPROLOL TARTRATE 25 MG TAB PO SCH ×2 (08:16→21:00)
[2016-05-22] MEDS: CHOLECALCIFEROL (VIT D3) 1000 UNIT TAB PO SCH (08:16)
--- NOTE | 2016-05-22 14:37 | HHI.PR ---
Subjective Remarks The patient was resting comfortably in bed. He was communicating with an erasable whiteboard. He wanted to know if he could go home following the PEG tube placement. He had no acute complaints. Objective Vitals Vital Signs Date Time Temp Pulse Resp B/P Pulse Ox O2 Delivery O2 Flow Rate FiO2 05/22/16 12:00 96.4 95 18 131/92 94 05/22/16 10:58 94 Trach Collar 28 05/22/16 08:00 95.9 70 20 168/82 96 05/22/16 04:01 97.1 80 18 138/79 94 05/22/16 00:00 97.0 76 18 154/74 94 05/21/16 20:00 96.2 78 18 148/85 96 05/21/16 18:11 96 Trach Collar 6.00 28 05/21/16 16:00 95.3 73 20 130/84 96 I/O 05/21/16 05/21/16 05/21/16 05/22/16 05/22/16 05/22/16 06:59 14:59 22:59 06:59 14:59 22:59 Intake Total 0 ml 0 ml 411 ml 455 ml 438 ml Output Total 200 ml 450 ml 700 ml Balance 0 ml -200 ml -39 ml -245 ml 438 ml Intake Oral 0 ml 0 ml 0 ml 0 ml IV Total 0 ml 411 ml 455 ml 438 ml Output Urine Total 200 ml 450 ml 700 ml # Voids 0 # Bowel Movements 0 0 0 0 Result Diagram: 05/21/16 0606 05/21/16 0606 Imaging Last Impressions Modified Barium Swallow 05/21/16 0000 Signed Impressions: Service Date/Time: Saturday, May 21, 2016 10:25 - CONCLUSION: Postsurgical deformity of the cervical esophagus without evidence of penetration or aspiration as described. Please see speech pathology report Anastacio Young MD Chest X-Ray 05/20/16 1426 Signed Impressions: Service Date/Time: Friday, May 20, 2016 14:52 - CONCLUSION: Hyperaeration suggesting COPD. Subtle nonspecific slight increased opacity in lung bases which could represent small effusion or parenchymal process Anastacio Young MD Objective Remarks GENERAL: This is a cachectic elderly gentleman in no apparent distress. SKIN: No rashes, ecchymoses or lesions. Cool and dry. HEAD: Atraumatic. Normocephalic. No temporal or scalp tenderness. Temporal wasting. EYES: Pupils equal round and reactive. Extraocular motions intact. No scleral icterus. No injection or drainage. ENT: Nose without bleeding, purulent drainage or septal hematoma. Throat without erythema, tonsillar hypertrophy or exudate. Uvula midline. Airway patent. NECK: Trachea midline. No JVD or lymphadenopathy. Supple, nontender, no meningeal signs. CARDIOVASCULAR: Regular rate and rhythm without murmurs, gallops, or rubs. RESPIRATORY: Clear to auscultation. Breath sounds equal bilaterally. No wheezes , rales, or rhonchi. GASTROINTESTINAL: Abdomen soft, non-tender, nondistended. No hepato-splenomegaly , or palpable masses. No guarding. MUSCULOSKELETAL: Extremities without clubbing, cyanosis, or edema. No joint tenderness, effusion, or edema noted. NEUROLOGICAL: Awake and alert. Motor and sensory grossly within normal limits. Unable to speak. PSYCH: Mood and affect appropriate. Medications and IVs Current Medications Medications (Trade) Dose Ordered Sig/Yoel Route Start Time Stop Time Status Last Admin (NS Flush) 2 ml UNSCH PRN FLUSH 05/20/16 18:30 (NS Flush) 2 ml BID FLUSH 05/20/16 21:00 05/21/16 09:32 (Tylenol) 650 mg Q4H PRN PO 05/20/16 18:30 (Colace) 100 mg Q12H PO 05/20/16 18:30 (Senokot) 17.2 mg Q12H PRN PO 05/20/16 18:30 (Tylenol) 650 mg Q6H PRN PO 05/20/16 18:30 (Morphine Inj) 2 mg Q3H PRN IV 05/20/16 18:30 (Morphine Inj) 4 mg Q3H PRN IV 05/20/16 18:30 (Narcan Inj) 0.4 mg UNSCH PRN IV 05/20/16 18:30 (Ecotrin Ec) 81 mg DAILY PO 05/21/16 09:00 05/21/16 09:32 (Vitamin D3) 1,000 units DAILY PO 05/21/16 09:00 05/21/16 09:32 (Synthroid) 100 mcg DAILY@06 PO 05/21/16 06:00 05/22/16 06:09 (Protonix) 20 mg DAILY PO 05/21/16 09:00 05/21/16 09:32 (Lovenox Inj) 40 mg Q24H SQ 05/21/16 08:00 05/21/16 09:32 (Lopressor) 25 mg BID PO 05/21/16 09:30 05/21/16 22:44 A/P Problem List: (1) Dysphagia ICD Code: R13.10 Status: Acute (2) Protein calorie malnutrition ICD Code: E46 Status: Acute Assessment and Plan Head and neck cancer/ failure to thrive Diagnosed 30 years ago. Status post chemotherapy, radiation therapy. Trach placement for past one year. Unable to tolerate PO. GI consult appreciated. - PEG tube placement scheduled 05/22. - channel cementer outsole machine consult for tube feed recs. - PT/ST. Leukocytosis May have aspiration pneumonia. CXR suggesting possible parenchymal process. Sputum growing proteus and Enterobacter. UA unremarkable. - repeat CXR in AM. - start ceftriaxone. Hypokalemia S/t poor PO intake. - IVFs with KCl. - monitor and replete as needed. DVT prophylaxiswith Lovenox. Discharge Planning Possible d/c in 1-2 days. Baltazar Vo DO May 22, 2016 14:37
[2016-05-22] MEDS ORDERED: ceFAZolin INJ 1,000 MG VIAL IV ONE (16:36)
[2016-05-22] MEDS ORDERED: MIDAZOLAM HCL 2 MG/2 ML VIAL IV ONE (16:40)
[2016-05-22] MEDS ORDERED: PROPOFOL 200 MG/20 ML AMP IV ONE (16:41)
[2016-05-22] MEDS: cefTRIAXone INJ 1,000 MG in SODIUM CHLORIDE 0.9% INJ 100 ML IV SCH (17:41)
[2016-05-22] MEDS ORDERED: DO NOT ADM ANY ANTICOAGULANT DRUGS XX PRN (17:45)
[2016-05-22] MEDS ORDERED: FUROSEMIDE 40 MG/4 ML VIAL IV PUSH ONE (21:00)
--- NOTE | 2016-05-22 21:33 | PD.CONS ---
HPI Service Critical Care Medicine Consult Requested By Reason for Consult Shortness of Breath Primary Care Physician Vamshi Wade M.D. History of Present Illness 86-year-old white male admitted for evaluation of shortness of breath and weakness. Per medical record the patient last 2-3 days has noted increasing shortness of breath, decreased exercise tolerance, increased cough and malaise. He has not been able to eat. With each attempt to eat he gags, chokes and vomits. He has a history of head and neck cancer. He has a tracheostomy. He is feeling short of breath and having some colored sputum. He was admitted to [facility] where he was found on a floor today also hypoxic. [facility] medicine was consulted to help to manage patient's hypoxemia. Review of Systems ROS Unable to obtain, patient in respiratory distress and trached Past Family Social History Allergies: Coded Allergies: Contrast Media (Verified Allergy, Severe, IV IODINE CAUSED HIVES, 02/27/16) Iodine (Verified Allergy, Severe, HIVES, 02/27/16) Past Medical History Head and Neck Cancer - diagnosed 30 years ago. Status post chemotherapy, radiation therapy. Tracheostomy placement for past one year. Hypertension Atrial fibrillation Hyperlipidemia CHFEF of 35-40% per echo in August 2015. Grade 1 diastolic heart failure as well. PUD Past Surgical History Tracheostomy placements Surgery for head and neck cancer Active Ordered Medications Current Medications Medications (Trade) Dose Ordered Sig/Yoel Route PRN Reason Start Time Stop Time Status Last Admin Dose Admin IV Flush (NS Flush) 2 ml UNSCH PRN FLUSH FLUSH AFTER USING IV ACCESS 05/20/16 18:30 IV Flush (NS Flush) 2 ml BID FLUSH 05/20/16 21:00 05/21/16 09:32 Acetaminophen (Tylenol) 650 mg Q4H PRN PO TEMP > 100.4 05/20/16 18:30 Docusate Sodium (Colace) 100 mg Q12H PO 05/20/16 18:30 Sennosides (Senokot) 17.2 mg Q12H PRN PO CONSTIPATION 05/20/16 18:30 Acetaminophen (Tylenol) 650 mg Q6H PRN PO PAIN SCALE 1 TO 2 05/20/16 18:30 Morphine Sulfate (Morphine Inj) 2 mg Q3H PRN IV Pain 3-5; if unable to take PO 05/20/16 18:30 Morphine Sulfate (Morphine Inj) 4 mg Q3H PRN IV Pain 6-10;if unable to take PO 05/20/16 18:30 Naloxone HCl (Narcan Inj) 0.4 mg UNSCH PRN IV SEE LABEL COMMENTS 05/20/16 18:30 Aspirin (Ecotrin Ec) 81 mg DAILY PO 05/21/16 09:00 05/21/16 09:32 Cholecalciferol (Vitamin D3) 1,000 units DAILY PO 05/21/16 09:00 05/21/16 09:32 Levothyroxine Sodium (Synthroid) 100 mcg DAILY@06 PO 05/21/16 06:00 05/22/16 06:09 Pantoprazole Sodium (Protonix) 20 mg DAILY PO 05/21/16 09:00 05/21/16 09:32 Enoxaparin Sodium (Lovenox Inj) 40 mg Q24H SQ 05/21/16 08:00 05/21/16 09:32 Metoprolol Tartrate 25 mg 25 mg BID PO 05/21/16 09:30 05/21/16 22:44 Ceftriaxone Sodium/Sodium Chloride (Rocephin Inj/NS Inj) 100 ml @ 200 mls/hr Q24H IV 05/22/16 15:00 05/22/16 17:41 Miscellaneous Information ALL NURSING DEPARTME... UNSCH PRN XX SEE LABEL COMMENTS 05/22/16 17:45 05/23/16 17:44 Potassium Chloride (KCl 20 Meq Premix Inj) 100 ml @ 50 mls/hr Q2H IV 05/22/16 21:00 05/23/16 00:59 Family History Noncontributory Social History Negative x 3 Physical Exam Vital Signs Vital Signs Date Time Temp Pulse Resp B/P Pulse Ox O2 Delivery O2 Flow Rate FiO2 05/22/16 18:01 100 Trach Collar 6.00 28 05/22/16 17:30 98.3 80 19 130/80 98 05/22/16 17:20 87 20 133/81 100 05/22/16 17:07 83 20 132/81 100 05/22/16 16:56 98.3 82 20 125/74 95 05/22/16 15:30 97.6 94 18 131/92 94 05/22/16 12:00 96.4 95 18 131/92 94 05/22/16 10:58 94 Trach Collar 28 05/22/16 08:00 95.9 70 20 168/82 96 05/22/16 04:01 97.1 80 18 138/79 94 05/22/16 00:00 97.0 76 18 154/74 94 Physical Exam GENERAL: Cachectic elderly patient in bed SKIN: Warm and dry. HEAD: Normocephalic. EYES: No scleral icterus. No injection or drainage. NECK: Tracheostomy in place without signs of infection or inflammation. No JVD or lymphadenopathy. CARDIOVASCULAR: Regular rate and rhythm without murmurs, gallops, or rubs. RESPIRATORY: Breath sounds equal bilaterally. Mild accessory muscle use. GASTROINTESTINAL: Abdomen soft, non-tender, nondistended. MUSCULOSKELETAL: No cyanosis, or edema. BACK: Nontender without obvious deformity. No CVA tenderness. Laboratory Date/Time Procedure Status Source Growth 05/21/16 06:06 Aerobic Blood Culture - Preliminary Resulted Blood Peripheral NO GROWTH IN 1 DAY 05/21/16 06:06 Anaerobic Blood Culture - Preliminary Resulted Blood Peripheral NO GROWTH IN 1 DAY 05/20/16 16:20 Gram Stain - Final Complete Sputum Expectorated Sputum 05/20/16 16:20 Sputum Culture - Final Complete Enterobacter Aerogenes Proteus Mirabilis Result Diagram: 05/21/16 0606 05/21/16 0606 Septic Shock Reassessment Heart: Regular rate and rhythm Lungs: Course Skin: Warm Peripheral Pulses: Bounding Right Radial Bounding Left Radial Assessment and Plan Assessment and Plan Hypoxemai - frequent suctioning - CXR STAT - O2 vi Trach collar as needed to keep Sat > 92% - Aerosols scheduled and PRN Hypertension - well controlled - continue Metoprolol Head and Neck Cancer - diagnosed 30 years ago - Status post chemotherapy, radiation therapy - supportive care Hypothyroidism - Synthroid Dysphagia - PEG placement by GI Atrial fibrillation - metoprolol for rate control - ASA Hyperlipidemia - resume home meds after PEG placement CHF - EF of 35-40% per echo in August 2015 - Grade 1 diastolic heart failure as well - Continue BB and Diuretics PUD - PPI DVT/GI prophylaxis - Lovenox/Protonix Level 3 Barrett Martins MD May 22, 2016 21:33
--- NOTE | 2016-05-22 21:36 | RADRPT ---
EXAM DATE/TIME: 05/22/2016 21:22 [facility] COMPARISON: CT BRAIN W/O CONTRAST, January 29, 2016, 21:45. INDICATIONS : Trauma, fall. RADIATION DOSE: 40.71 CTDIvol (mGy) MEDICAL HISTORY : Hypertension. SURGICAL HISTORY : None. ENCOUNTER: Initial ACUITY: 1 day PAIN SCALE: 5/10 LOCATION: cranial TECHNIQUE: Multiple contiguous axial images were obtained of the head. Using automated exposure control and adj ustment of the mA and/or kV according to patient size, radiation dose was kept as low as reasonably a chievable to obtain optimal diagnostic quality images. FINDINGS: CEREBRUM: The ventricles are normal for age. No evidence of midline shift, mass lesion, hemorrhage or acute in farction. No extra-axial fluid collections are seen. Generalized atrophy again noted. POSTERIOR FOSSA: The cerebellum and brainstem are intact. The 4th ventricle is midline. The cerebellopontine angle i s unremarkable. EXTRACRANIAL: The visualized portion of the orbits is intact. SKULL: The calvaria is intact. No evidence of skull fracture. CONCLUSION: No bleed or other acute intracranial abnormality. Saravanan Maloney MD on May 22, 2016 at 21:34 Board Certified Radiologist. This report was verified electronically.
--- NOTE | 2016-05-22 21:48 | RADRPT ---
EXAM DATE/TIME: 05/22/2016 21:30 [facility] COMPARISON: CHEST SINGLE AP, May 20, 2016, 14:52. INDICATIONS : Short of breath MEDICAL HISTORY : Tongue and neck cancer SURGICAL HISTORY : Tongue and neck. ENCOUNTER: Subsequent ACUITY: 3 days PAIN SCORE: Non-responsive. LOCATION: Bilateral chest FINDINGS: Bibasilar consolidation and small effusions slightly worse on both sides. No pneumothorax. Heart size stable, within normal limits. CONCLUSION: Slightly worse bibasilar consolidation and small effusions. Saravanan Mlaoney MD on May 22, 2016 at 21:46 Board Certified Radiologist. This report was verified electronically.
[2016-05-22] MEDS ORDERED: ETOMIDATE 20 MG/10 ML VIAL ONE (22:32)
[2016-05-22] MEDS ORDERED: PROPOFOL 1000 MG/100 ML INJ 100 ML ONE (22:42)
[2016-05-22] MEDS ORDERED: SUCCINYLCHOLINE CHLORIDE 200 MG/10 ML VIAL IV ONE (22:45)
[2016-05-22] MEDS ORDERED: ETOMIDATE 20 MG/10 ML VIAL IV PUSH ONE (22:45)
--- NOTE | 2016-05-22 22:46 | HHI.PR ---
Addendum to Inpatient Note Addendum Reason: Additional Documentation Additional Information Rapid response was called on this patient at around 8:20 PM. The patient had a fall and was found on the floor at that time. Patient sustained abrasion at his posterior skull. He was also noted to be hypoxic, with gurgling sounds upon his nurse assessment. Therefore rapid response was called. I have come to see patient at the bedside. Patient is known to me from his admission date. Hospital chart reviewed. He is awake, trying to write on his bedside notepad to communicate as he is elderly gentleman with tracheostomy site. He is however somewhat confused compared to his baseline status. He kept writing that he has been poisoned while in hospital. He does report of shortness of breath. Upon exam, patient is in moderate respiratory distress. He was using respiratory accessory muscles. However not diaphoretic. His lung exam revealed bilateral rales. However also more prominence with gurgling sounds at the tracheostomy site/upper airway congestion. Abdomen is soft and nontender. No calf asymmetry or edema noted. His left upper extremity is quite ecchymosis secondary to senile fragile skin suffering from IV/blood draws while in hospital. Impression: Acute respiratory distresssecondary to likely mucous plugging of the stoma, possible fluid overload. Hypoxic respiratory failure History of CHFEF of 35-40%, with grade 1 diastolic heart failureby echo in August 2015 Dysphagiaawaiting PEG tube placement by IR. Failed attempt by GI today. Hypokalemia3.2 from a.m. labs Plan: Lasix 40 mg IV 1 dose given. Replace potassium 40 ME daily IV 1 dose now. May need Arce catheter if not voiding spontaneously. Suction patient at the bedside. Resulted in thick mucus secretions. Transfer patient to ICU stat. Patient's CODE STATUS was clarified with his long-term production cloth cutter over the phone by his nurse. She confirmed he is a full code. Discussed with paint pourer organizational psychologist. Campbell Yarbrough MD May 22, 2016 22:46
[2016-05-22 23:24] LABS: BLOOD GAS BASE EXCESS -4.9 mmol/L (-2-2); BLOOD GAS CARBOXYHEMOGLOBIN 0.8 % (0-4); BLOOD GAS HCO3 20 mmol/L (22-26); BLOOD GAS METHEMOGLOBIN 0.8 % (0-2); BLOOD GAS O2 HGB SATURATION 70 % (90-100); BLOOD GAS PCO2 36 mmHg (38-42); BLOOD GAS PO2 44 mmHg (61-120); BLOOD GAS TOTAL HGB 11.2 G/DL (12.0-16.0); FIO2 98 %; OXYGEN DEVICE MASK; TEMP CORR TO 98.6
[2016-05-22 23:25] LABS: BLOOD GAS BASE EXCESS -4.4 mmol/L (-2-2); BLOOD GAS CARBOXYHEMOGLOBIN 0.8 % (0-4); BLOOD GAS HCO3 20 mmol/L (22-26); BLOOD GAS METHEMOGLOBIN 0.9 % (0-2); BLOOD GAS O2 HGB SATURATION 77 % (90-100); BLOOD GAS OXYGEN CONTENT 11.9 Vol % (12.0-20.0); BLOOD GAS PCO2 34 mmHg (38-42); BLOOD GAS PO2 49 mmHg (61-120); TEMP CORR TO 98.6
[2016-05-22 23:25] LABS: DRAW SITE LT BRACHIAL; NUMBER OF ARTERIAL PUNCTURES 1; STAT YES; ULNAR PULSE PRESENT
[2016-05-22 23:26] LABS: DRAW SITE RT FEMORAL; FIO2 98 %; NUMBER OF ARTERIAL PUNCTURES 1; OXYGEN DEVICE TRACH MASK; STAT YES; ULNAR PULSE Y
[2016-05-23] VITALS (16 sets, daily range): BP systolic 105–142; BP diastolic 68–75; PULSE 95–133; RESP 14–26; TEMP 95.2–98.4; O2SAT 88–97
[2016-05-23] MEDS: POTASSIUM CHLOR 20 MEQ PREMIX 100 ML IV SCH ×2 (00:10→01:46)
[2016-05-23] MEDS ORDERED: RESP: ALBUTEROL 2.5 MG/IPRATROPIUM 0.5 MG NEB (PRN) NEB ×2 (03:00→05:45)
[2016-05-23 05:05] LABS: HEMATOCRIT 32.6 % (39.0-51.0); MEAN CELL VOLUME 91.1 FL (80.0-100.0); MEAN CORPUSCULAR HGB CONC 34.1 % (32.0-36.0); PLATELET COUNT 217 TH/MM3 (150-450); RED BLOOD COUNT 3.58 MIL/MM3 (4.50-5.90); REVIEW FLAG FINAL; WHITE BLOOD COUNT 27.6 TH/MM3 (4.0-11.0)
[2016-05-23 05:24] LABS: BICARBONATE 20.8 MEQ/L (21.0-32.0); MAGNESIUM 1.3 MG/DL (1.5-2.5); POTASSIUM 3.6 MEQ/L (3.5-5.1)
[2016-05-23 05:39] LABS: CALCIUM-PROTEIN CORRECTED 8.7 MG/DL (8.5-10.1)
[2016-05-23 05:54] LABS: BLOOD GAS BASE EXCESS -0.6 mmol/L (-2-2); BLOOD GAS HCO3 22 mmol/L (22-26); BLOOD GAS METHEMOGLOBIN 0.9 % (0-2); BLOOD GAS O2 HGB SATURATION 88 % (90-100); BLOOD GAS OXYGEN CONTENT 12.9 Vol % (12.0-20.0); BLOOD GAS PCO2 29 mmHg (38-42); BLOOD GAS PO2 59 mmHg (61-120); BLOOD GAS TOTAL HGB 10.4 G/DL (12.0-16.0); CRITICAL VALUE YES; OXYGEN DEVICE TRACH COLLAR; TEMP CORR TO 98.6
[2016-05-23 05:55] LABS: DRAW SITE LT BRACHIAL; FIO2 98 %; NUMBER OF ARTERIAL PUNCTURES 1; STAT YES; ULNAR PULSE PRESENT
[2016-05-23] MEDS: LEVOTHYROXINE SODIUM 100 MCG TAB PO SCH (06:00)
[2016-05-23] MEDS: SODIUM CHLOR 0.9% 1000 ML INJ 1,000 ML IV SCH ×2 (06:00→15:35)
--- NOTE | 2016-05-23 06:15 | RADRPT ---
EXAM DATE/TIME: 05/23/2016 05:08 [facility] COMPARISON: CHEST SINGLE AP, May 22, 2016, 21:30. INDICATIONS : Please evalaute for pnuemonia. MEDICAL HISTORY : Tongue and neck cancer SURGICAL HISTORY : ENCOUNTER: Subsequent ACUITY: 1 week PAIN SCORE: Non-responsive. LOCATION: Bilateral chest FINDINGS: A single view of the chest demonstrates large left-sided pneumothorax with compressive atelectasis of the left lung. Slight mediastinal shift to the right. Bibasilar densities are again seen with probab le small bilateral pleural effusions and bibasilar atelectasis. The cardiomediastinal contours are u nremarkable. Rib fractures on the left. CONCLUSION: 1. Large pneumothorax on the left. Left-sided chest tube recommended. 2. Bibasilar densities likely combination of pleural effusions and bibasilar atelectasis Nate Kamara MD on May 23, 2016 at 6:08 Board Certified Radiologist. This report was verified electronically.
[2016-05-23] MEDS: DOCUSATE SODIUM 100 MG CAP PO SCH ×2 (06:30→17:02)
[2016-05-23] MEDS ORDERED: LIDOCAINE HCL 1% 50 ML VIAL ONE (06:51)
[2016-05-23] MEDS ORDERED: LIDOCAINE 1%/EPINEPHrine 1:100,000 SOLN 50 ML VIAL ONE ×2 (07:00→07:51)
[2016-05-23] MEDS: RESP: ALBUTEROL 2.5 MG/IPRATROPIUM 0.5 MG NEB (SCH) NEB ×4 (07:55→19:36)
[2016-05-23] MEDS: ENOXAPARIN SODIUM 40 MG/0.4 ML SYRINGE SQ SCH (08:00)
--- NOTE | 2016-05-23 08:06 | RADRPT ---
EXAM DATE/TIME: 05/23/2016 07:45 [facility] COMPARISON: CHEST SINGLE AP, May 23, 2016, 5:08. INDICATIONS : Post left side chest tube placement. MEDICAL HISTORY : Tongue and neck cancer SURGICAL HISTORY : None. ENCOUNTER: Initial ACUITY: 1 day PAIN SCORE: 0/10 LOCATION: Left chest FINDINGS: A small caliber chest tube has been placed at the left base. A large left hydropneumothorax persists. There is mild decrease in the air component and moderate decrease in the fluid component since the c hest tube has been placed. No tension demonstrated. Basilar consolidation and a small effusion unchanged on the right. There is no right pneumothorax. CONCLUSION: 1. The left hydropneumothorax is slightly smaller after chest tube placement. No tension seen. The ch est tube is positioned at the base. 2. Consolidation and small effusion at the right base not significantly changed. Saravanan Maloney MD on May 23, 2016 at 8:03 Board Certified Radiologist. This report was verified electronically.
--- NOTE | 2016-05-23 08:44 | PD.PROCEDR ---
Procedure Note Procedure DATE: 05/23/2016 Thoracostomy placement: Left chest INDICATION: Pneumothorax CONSENT Informed consent for procedure was obtained from patient Rodney. DESCRIPTION OF THE PROCEDURE The patient was age-appropriate for chest tube placement. Left chest was prepped and draped in sterile fashion using ChloraPrep 3. 1% lidocaine with epinephrine used in a satisfying secondary. A 2 cm skin incision was made in the midaxillary line at the inframammary crease. Using blunt dissection a subcutaneous tunnel was created just adjacent to this.. The chest was entered bluntly and a gush of air was observed. Finger was inserted into the pleural space 360 to check anatomy for adhesions and guide tube insertion. Using a hemostat a 20 Lao thoracostomy tube was inserted to appropriate position at - 18. The chest was sutured to the skin and sterile dressing applied. The Pleur- evac was attached to the chest tube and a chest x-ray is currently pending. - 20 cm H2O ESTIMATED BLOOD LOSS: Minimal COMPLICATIONS: No apparent complications. STAT chest x-ray ending at time of dictation Jose Stafford MD May 23, 2016 08:44
[2016-05-23] MEDS: SODIUM CHLORIDE 0.9% FLUSH 5 ML FLUSH FLUSH SCH ×2 (09:00→21:12)
[2016-05-23] MEDS: PANTOPRAZOLE SOD 20 MG DELAYED RELEASE TAB PO SCH (09:00)
[2016-05-23] MEDS: CHOLECALCIFEROL (VIT D3) 1000 UNIT TAB PO SCH (09:00)
[2016-05-23] MEDS: METOPROLOL TARTRATE 25 MG TAB PO SCH ×2 (09:00→21:00)
[2016-05-23] MEDS: ASPIRIN EC 81 MG TABEC PO SCH (09:00)
--- NOTE | 2016-05-23 09:08 | RADRPT ---
EXAM DATE/TIME: 05/23/2016 08:46 [facility] COMPARISON: CHEST SINGLE AP, May 23, 2016, 7:45. INDICATIONS : Chest Tube Placement MEDICAL HISTORY : Tongue and Neck Cancer SURGICAL HISTORY : Tongue and Neck ENCOUNTER: Subsequent ACUITY: 4 - 6 days PAIN SCORE: Non-responsive. LOCATION: Bilateral chest FINDINGS: There is a new large bore Left chest tube is in place terminating toward the apex with marked reducti on of the left pneumothorax which appears maximally 1.5 cm in width in the apex. Left rib fractures a re appreciated with small bore pigtail catheter pleural in the left base. Basilar opacities and effus ion are stable and unchanged. CONCLUSION: Place a large bore chest tube toward the left apex with marked reduction of the pneumothorax now maxi aj 1.5 cm in width Anastacio Young MD on May 23, 2016 at 9:04 Board Certified Radiologist. This report was verified electronically.
--- NOTE | 2016-05-23 09:25 | HHI.CCPN ---
Subjective Remarks/Hospital Course 86-year-old white male admitted for evaluation of shortness of breath and weakness. Per medical record the patient last 2-3 days has noted increasing shortness of breath, decreased exercise tolerance, increased cough and malaise. He has not been able to eat. With each attempt to eat he gags, chokes and vomits. He has a history of head and neck cancer. He has a tracheostomy. He is feeling short of breath and having some colored sputum. He was admitted [facility] where he was found on a floor today also hypoxic. [facility] medicine was consulted to help to manage patient's hypoxemia. SUBJECTIVE: 05/23: Patient with large left-sided pneumothorax. Originally pigtail catheter placed over the wound did not reinflated for a 20 Senegalese chest tube was placed and lungs currently inflated. Oxygen saturations currently 100 percent. Objective Vital Signs Date Time Temp Pulse Resp B/P Pulse Ox O2 Delivery O2 Flow Rate FiO2 05/23/16 08:11 96 o2 extento 15.00 05/23/16 08:00 95 05/23/16 04:00 95.2 18 105/69 05/22/16 21:00 50 Intake and Output 05/22/16 05/22/16 05/22/16 07:59 15:59 23:59 Intake Total 455 ml 438 ml 50 ml Output Total 700 ml 300 ml 0 ml Balance -245 ml 138 ml 50 ml Result Diagram: 05/23/16 0334 05/23/16 0334 Other Results Microbiology Date/Time Procedure Status Source Growth 05/21/16 06:06 Aerobic Blood Culture - Preliminary Resulted Blood Peripheral NO GROWTH IN 1 DAY 05/21/16 06:06 Anaerobic Blood Culture - Preliminary Resulted Blood Peripheral NO GROWTH IN 1 DAY 05/20/16 16:20 Gram Stain - Final Complete Sputum Expectorated Sputum 05/20/16 16:20 Sputum Culture - Final Complete Enterobacter Aerogenes Proteus Mirabilis Imaging Last Impressions Chest X-Ray 05/23/16 0731 Signed Impressions: Service Date/Time: Monday, May 23, 2016 07:45 - CONCLUSION: 1. The left hydropneumothorax is slightly smaller after chest tube placement. No tension seen. The chest tube is positioned at the base. 2. Consolidation and small effusion at the right base not significantly changed. Saravanan Maloney MD Head CT 05/22/16 0000 Signed Impressions: Service Date/Time: April 21:22 - CONCLUSION: No bleed or other acute intracranial abnormality. Saravanan Maloney MD Modified Barium Swallow 05/21/16 0000 Signed Impressions: Service Date/Time: Saturday, May 21, 2016 10:25 - CONCLUSION: Postsurgical deformity of the cervical esophagus without evidence of penetration or aspiration as described. Please see speech pathology report Anastacio Young MD Objective Remarks GENERAL: 86-year-old male, critically ill and Cachectic lying in bed in no acute distress SKIN: Warm and dry.. Multiple ecchymosis bilateral upper extremities HEAD: Normocephalic. EYES: No scleral icterus. No injection or drainage. NECK: Laryngeal stoma TEP in place without signs of infection or inflammation. No JVD or lymphadenopathy. CARDIOVASCULAR: Tachycardic, RR. S1, S2 no S4. Without M/C/G/R RESPIRATORY: Breath sounds currently are equal bilaterally. Few crackles appreciated bilateral lower lobes GASTROINTESTINAL: Abdomen cachectic, scaphoid and non-tender MUSCULOSKELETAL: No significant peripheral edema. BACK: Nontender without obvious deformity. No CVA tenderness. A/P Assessment and Plan Neuro/Psych: Depression/anxiety EtOH use History bilateral cataracts Chronic dizziness Acetaminophen for fever Local/as needed morphine for pain management Patient on meclizine 12.5 mg 3 times a day as needed for dizziness at home. This is been held CV: Atrial fibrillation Hypertension Dyslipidemia Currently on metoprolol 20 mg by mouth twice a day for blood pressure/A. fib controlled rate control At home on lisinopril 20 mg by mouth daily for hypertension. 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 Wean oxygen to maintain saturations greater than equal to 90% Duo nebs every 4 hours and as needed Old chest x-ray in a.m. Pigtail catheter -40 cm H2O. 3 Senegalese Chest tubes -20 cmH2O. Less than 50 cc output since placement Gentle diuresis with Lasix today. Recheck x-ray in a.m. GI: Severe protein calorie malnutrition Esophageal stricture with failed esophageal dilatation attempt this admission with 03/04 Senegalese dilators Gastroesophageal reflux disease Plan for PEG tube when stable clinically Currently nothing by mouth Patient is on Protonix 20 g by mouth daily. Prilosec 20 mg by mouth daily home Colace for bowel regimen : Arce will be placed if indicated for accurate I's and O's in a critically ill patient Endo: Hypothyroidism Diabetes mellitus Continue with Levoxyl 100 g by mouth daily Sliding scale insulin in order to maintain euglycemia. Low regimen every 6 hours Renal: Creatinine currently within normal limits. Monitor urine output carefully. Heme: Leukocytosis Normocytic anemia Follow CBC/CMP daily ID: Proteus/Enterobacter pneumonia Day #3 Rocephin 1 g IV 24 hours. Pertinent cultures 05/20 - blood cultures 2 - no growth 05/20 - sputum - Proteus Mirabella/Enterobacter aeruginosa is pansensitive 05/21 - blood cultures 2 -no growth to date FEN: Hypo-magnesium Hypokalemia Replace per ICU electrolyte protocol. 3 g mag sulfate/20 mEq KCl IV 1 now MSK: Severe debilitation On vitamin D 3 2000 units daily. Is currently on hold. Resume when clinically indicated PT evaluate and treat Access - Utilize peripheral IV. Central line if indicated Prophylaxis - GI - Protonix - DVT - SCD/Lovenox Critical Care: The total critical care time was 55 minutes. Time to perform other separately billable procedures was not included in the critical care time. Hypoxemai - frequent suctioning - CXR STAT - O2 vi Trach collar as needed to keep Sat > 92% - Aerosols scheduled and PRN Hypertension - well controlled - continue Metoprolol Head and Neck Cancer - diagnosed 30 years ago - Status post chemotherapy, radiation therapy - supportive care Hypothyroidism - Synthroid Dysphagia - PEG placement by GI Atrial fibrillation - metoprolol for rate control - ASA Hyperlipidemia - resume home meds after PEG placement CHF - EF of 35-40% per echo in August 2015 - Grade 1 diastolic heart failure as well - Continue BB and Diuretics PUD - PPI DVT/GI prophylaxis - Lovenox/Protonix Level 3 Jose Stafford MD May 23, 2016 09:25
[2016-05-23] MEDS ORDERED: POTASSIUM CHLOR 20 MEQ PREMIX 100 ML IV ONE (09:30)
[2016-05-23] MEDS: FUROSEMIDE 20 MG/2 ML VIAL IV PUSH SCH (10:00)
[2016-05-23] MEDS: ALBUMIN HUMAN 25% 25 GM/100 ML BAGP IV SCH ×2 (10:19→21:11)
[2016-05-23] MEDS: MAGNESIUM SULFATE 1 GM PREMIX 100 ML IV SCH ×3 (10:20→15:35)
[2016-05-23] MEDS ORDERED: fentaNYL CITRATE 250 MCG/5 ML AMP ONE (14:05)
[2016-05-23] MEDS ORDERED: MIDAZOLAM HCL 5 MG/5 ML VIAL ONE (14:05)
[2016-05-23] MEDS ORDERED: LEVOFLOXACIN 500 MG PREMIX INJ 100 ML IV ONE (14:05)
[2016-05-23] MEDS ORDERED: GLUCAGON 1 MG/ML VIAL ONE (14:05)
--- NOTE | 2016-05-23 15:20 | HHI.GIFU ---
Subjective Remarks Resting in bed. Nurse reports that he fell out of bed last night and was found to have left hydropneumothorax. S/P CT x 2. He is going down to IR to have Gastrostomy tube placed. (Marianne Maldonado) Objective Vitals I&O Vital Signs Date Time Temp Pulse Resp B/P Pulse Ox O2 Delivery O2 Flow Rate FiO2 05/23/16 10:27 96 Face Tent 50 05/23/16 10:00 106 05/23/16 08:11 96 o2 extento 15.00 05/23/16 08:00 96 Blow By 15.00 05/23/16 08:00 95 05/23/16 08:00 96.3 95 18 113/68 95 05/23/16 06:00 106 05/23/16 04:00 106 05/23/16 04:00 96 Blow By 15.00 05/23/16 04:00 95.2 106 18 105/69 96 05/23/16 02:00 109 05/23/16 01:00 90 Trach Collar 10.00 05/23/16 00:00 96.4 120 26 130/68 91 05/22/16 22:00 120 05/22/16 21:00 Trach Collar 13.00 50 Humidified 05/22/16 20:30 98 05/22/16 18:01 100 Trach Collar 6.00 28 05/22/16 17:30 98.3 80 19 130/80 98 05/22/16 17:20 87 20 133/81 100 05/22/16 17:07 83 20 132/81 100 05/22/16 16:56 98.3 82 20 125/74 95 05/22/16 15:30 97.6 94 18 131/92 94 I/O 05/22/16 05/22/16 05/22/16 05/23/16 05/23/16 05/23/16 07:00 15:00 23:00 07:00 15:00 23:00 Intake Total 455 ml 438 ml 50 ml 267 ml Output Total 700 ml 300 ml 0 ml 60 ml Balance -245 ml 138 ml 50 ml 207 ml Intake Oral 0 ml 0 ml IV Total 455 ml 438 ml 0 ml 267 ml Other 50 ml Output Urine Total 700 ml 300 ml 0 ml 60 ml Stool Total 0 ml # Bowel Movements 0 Laboratory Laboratory Tests Test 05/22/16 05/22/16 05/23/16 05/23/16 21:56 22:52 03:34 05:44 Blood Gas Puncture Site LT BRACHIAL RT FEMORAL LT BRACHIAL Blood Gas Patient Temperature 98.6 98.6 98.6 Blood Gas HCO3 20 20 22 Blood Gas Base Excess -4.9 -4.4 -0.6 Blood Gas Oxygen Saturation 70 77 88 Arterial Blood pH 7.36 7.38 7.50 Arterial Blood Partial 36 34 29 Pressure CO2 Arterial Blood Partial 44 49 59 Pressure O2 Arterial Blood Oxygen Content 11.0 11.9 12.9 Arterial Blood 0.8 0.8 1.0 Carboxyhemoglobin Arterial Blood Methemoglobin 0.8 0.9 0.9 Blood Gas Hemoglobin 11.2 11.0 10.4 Oxygen Delivery Device MASK TRACH MASK TRACH COLLAR Blood Gas Inspired Oxygen 98 98 98 White Blood Count 27.6 Red Blood Count 3.58 Hemoglobin 11.1 Hematocrit 32.6 Mean Corpuscular Volume 91.1 Mean Corpuscular Hemoglobin 31.0 Mean Corpuscular Hemoglobin 34.1 Concent Red Cell Distribution Width 14.0 Platelet Count 217 Mean Platelet Volume 7.9 Sodium Level 141 Potassium Level 3.6 Chloride Level 105 Carbon Dioxide Level 20.8 Anion Gap 15 Blood Urea Nitrogen 10 Creatinine 0.77 Estimat Glomerular Filtration 96 Rate Random Glucose 119 Calcium Level 7.2 Protein Corrected Calcium 8.7 Phosphorus Level 2.7 Magnesium Level 1.3 Total Protein 4.5 Date/Time Procedure Status Source Growth 05/21/16 06:06 Aerobic Blood Culture - Preliminary Resulted Blood Peripheral NO GROWTH IN 2 DAYS 05/21/16 06:06 Anaerobic Blood Culture - Preliminary Resulted Blood Peripheral NO GROWTH IN 2 DAYS 05/20/16 16:20 Gram Stain - Final Complete Sputum Expectorated Sputum 05/20/16 16:20 Sputum Culture - Final Complete Enterobacter Aerogenes Proteus Mirabilis Imaging Last Impressions Chest X-Ray 05/23/16 0731 Signed Impressions: Service Date/Time: Monday, May 23, 2016 07:45 - CONCLUSION: 1. The left hydropneumothorax is slightly smaller after chest tube placement. No tension seen. The chest tube is positioned at the base. 2. Consolidation and small effusion at the right base not significantly changed. Saravanan Maloney MD Head CT 05/22/16 0000 Signed Impressions: Service Date/Time: April 21:22 - CONCLUSION: No bleed or other acute intracranial abnormality. Saravanan Maloney MD Modified Barium Swallow 05/21/16 0000 Signed Impressions: Service Date/Time: Saturday, May 21, 2016 10:25 - CONCLUSION: Postsurgical deformity of the cervical esophagus without evidence of penetration or aspiration as described. Please see speech pathology report Anastacio Young MD Physical Exam GEN: Ill appearing, cachetic HEENT: Normocephalic CHEST: CTA CARDIAC: RRR. ABDOMEN: Soft, nondistended, nontender; no hepatosplenomegaly; bowel sounds are present in all four quadrants. EXTREMITIES: No clubbing, cyanosis, or edema. SKIN: Normal; no rash; no jaundice. ROUTE SERVICE REPRESENTATIVE: No focal deficits; lethargic and oriented times three. (Marianne Maldonado) Assessment and Plan Plan ASSESSMENT: - Dysphagia, failure to thrive, Cachexia- History of laryngeal cancer,s/p total laryngectomy, s/p radiation therapy, tongue lesion s/p transoral resection at [facility]. He has had issues with dysphagia s/p dilatation by ENT with minimal success. Modified Barium Swallow (05/21/16)---> Postsurgical deformity of the cervical esophagus without evidence of penetration or aspiration as described. Please see speech pathology report---> Pt with significant pooling at base of tongue with thin liquids never able to fully clear, patient with bulging/hypertrophy that impedes flow of thin liquids, may be scar tissue. Recommend NPO with bypass feedings. S/P attempted EGD (05/22/16)---> esophageal stricture, unable to place PEG. IR consulted for gastrostomy tube placement. Going down today. - History of laryngeal cancer,s/p total laryngectomy, s/p radiation therapy, tongue lesion s/p transoral resection at [facility]. Plan: - NPO - IR consulted for gastrostomy tube placement - GI will sign off, please reconsult as needed - Patient seen and examined by Dr. Cheatham and myself and this note is written on his behalf. (Marianne Maldonado) Physician Comments Seen and examined, last night events noted, will need G tube placement via IR, please notify us if needed. (Mariluz Cheatham MD) Marianne Maldonado May 23, 2016 15:20 Mariluz Cheatham MD May 23, 2016 15:22
[2016-05-23] MEDS ORDERED: MAGNESIUM SULFATE 1 GM PREMIX 100 ML ONE (15:32)
[2016-05-23] MEDS: cefTRIAXone INJ 1,000 MG in SODIUM CHLORIDE 0.9% INJ 100 ML IV SCH (15:34)
--- NOTE | 2016-05-23 15:38 | PD.RAD ---
Post Procedure Progress Note Pre Procedure Diagnosis: (1) Throat cancer (2) Dysphagia (3) Protein calorie malnutrition Post Procedure Diagnosis: (1) Throat cancer (2) Dysphagia (3) Protein calorie malnutrition Procedure Date: May 23, 2016 Supervising Radiologist: Earnest Willis JR Proceduralist/Assist: Kemi Morton, RT(R)(CV), Nisha Alvarez, RT(R)() Anesthesia: Conscious Sedation Plan of Activity Patient to Unit: Nursing Unit Patient Condition: Fair Additional Comments: Patient was brought down for gastrostomy tube placement. Low dose conscious sedation was utilized with an immediate drop in his BP. He remained stable. Patient still awake and alert. Unable to further sedate. Procedure aborted. See PACS Report for procedural detail/treatment Jr. Lazaro,Earnest Loo MD May 23, 2016 15:38
--- NOTE | 2016-05-23 15:57 | RADRPT ---
EXAM DATE/TIME: 05/23/2016 14:13 [facility] COMPARISON : No previous studies available for comparison. INDICATIONS : Patient with history of esophageal stricture and dysphagia in need of gastrostomy tube placement. PAST MEDICAL HISTORY : 1. Head and neck cancer 2. Tracheostomy 3. HTN 4. AFIB 5. Hyperlipidemia 6. CHF 7. PUD PAST SURGICAL HISTORY : 1. Tracheostomy 2. Head and Neck cancer IMAGING STUDIES: Patient was brought to the interventional suite for gastrostomy tube placement. Following a small lissette ntity of conscious sedation medication the patient's blood pressure quickly dropped to approximately 70/50. The patient remained stable. The patient remained wide awake. We cannot further sedate the pat ient due to his blood pressure response to medications. I did not feel comfortable proceeding forward as the patient had little change in alertness with this quantity of medication. The procedure was ab orted. ASSESSMENT: Unable to adequately sedate the patient for procedure. PLAN: Forego the procedure until the patient is more hemodynamically stable. TIME SPENT: The 45 minutes TECH NOTE: Sedation time 10 minutes Fluoroscopt time: 0.7 minutesSTEVENSON ZHAO V. MR#:[id number] :86 Exam Dt/Desc: May 23, 2016INVASIVE RADIOL OGY CONSULT Earnest Willis Jr., MD on May 23, 2016 at 15:52 Board Certified Radiologist. This report was verified electronically.
[2016-05-23] MEDS: MORPHINE SULFATE 4 MG/ML INJ IV PRN ×2 (17:56→21:11)
[2016-05-24] VITALS (14 sets, daily range): BP systolic 121–171; BP diastolic 60–101; PULSE 95–137; RESP 16–24; TEMP 97–98.3; O2SAT 88–100
[2016-05-24] MEDS: LEVOTHYROXINE SODIUM 100 MCG TAB PO SCH (00:05)
[2016-05-24] MEDS: DOCUSATE SODIUM 100 MG CAP PO SCH ×2 (00:05→10:40)
[2016-05-24] MEDS: RESP: ALBUTEROL 2.5 MG/IPRATROPIUM 0.5 MG NEB (SCH) NEB ×6 (00:10→19:38)
[2016-05-24] MEDS: SODIUM CHLOR 0.9% 1000 ML INJ 1,000 ML IV SCH ×3 (02:00→20:32)
[2016-05-24 04:59] LABS: AUTOMATED NEUTROPHIL # 11.3 TH/MM3 (1.8-7.7); EOSINOPHIL % 0.1 % (0.0-4.0); HEMATOCRIT 25.6 % (39.0-51.0); HEMO FLAGS DIFF FINAL; LYMPH % 7.5 % (9.0-44.0); MEAN CELL VOLUME 92.5 FL (80.0-100.0); MEAN CORPUSCULAR HEMOGLOBIN 31.5 PG (27.0-34.0); MEAN CORPUSCULAR HGB CONC 34.1 % (32.0-36.0); MONO % 6.7 % (0.0-8.0); NEUT % 85.7 % (16.0-70.0); PLATELET COUNT 133 TH/MM3 (150-450); RED BLOOD COUNT 2.77 MIL/MM3 (4.50-5.90); RED CELL DISTRIBUTION WIDTH 14.4 % (11.6-17.2); WHITE BLOOD COUNT 13.2 TH/MM3 (4.0-11.0)
[2016-05-24 05:28] LABS: APTT (PATIENT) 44.3 SEC (24.3-30.1); INTERNATIONAL NORMALIZED RATIO 1.2 RATIO
[2016-05-24 05:37] LABS: BICARBONATE 22.4 MEQ/L (21.0-32.0); CALCIUM-PROTEIN CORRECTED 8.6 MG/DL (8.5-10.1); MAGNESIUM 1.9 MG/DL (1.5-2.5); POTASSIUM 3.3 MEQ/L (3.5-5.1); TOTAL BILIRUBIN ADULT 0.5 MG/DL (0.2-1.0)
--- NOTE | 2016-05-24 06:00 | RADRPT ---
EXAM DATE/TIME: 05/24/2016 04:05 [facility] COMPARISON: CHEST SINGLE AP, May 23, 2016, 8:46. INDICATIONS : Please evaluate after respiratory failure. MEDICAL HISTORY : Tongue and Neck Cancer SURGICAL HISTORY : Tongue and neck ENCOUNTER: Subsequent ACUITY: 1 week PAIN SCORE: Non-responsive. LOCATION: Bilateral chest FINDINGS: A single view of the chest demonstrates enlarging left apical pneumothorax. 2 chest tubes on the left are seen. Bibasilar densities are noted. Heart enlarged. The cardiomediastinal contours are unremark able. Osseous structures are intact. CONCLUSION: 1. Enlarging left apical pneumothorax. 2. Bibasilar densities. Nate Kamara MD on May 24, 2016 at 5:56 Board Certified Radiologist. This report was verified electronically.
[2016-05-24] MEDS ORDERED: MAGNESIUM SULFATE 1 GM PREMIX 100 ML IV ONE (07:30)
--- NOTE | 2016-05-24 07:36 | HHI.CCPN ---
Subjective Remarks/Hospital Course 86-year-old white male admitted for evaluation of shortness of breath and weakness. Per medical record the patient last 2-3 days has noted increasing shortness of breath, decreased exercise tolerance, increased cough and malaise. He has not been able to eat. With each attempt to eat he gags, chokes and vomits. He has a history of head and neck cancer. He has a tracheostomy. He is feeling short of breath and having some colored sputum. He was admitted to [facility] where he was found on a floor today also hypoxic. [facility] medicine was consulted to help to manage patient's hypoxemia. 05/23: Patient with large left-sided pneumothorax. Originally pigtail catheter placed over the wound did not reinflated for a 20 [place] chest tube was placed and lungs currently inflated. Oxygen saturations currently 100 percent. SUBJECTIVE: 05/24: Increasing pneumothorax on chest x-ray this a.m., atrium change no saturations improved to 100%. Requesting tube feeds however unable to provide due to unstable medical status/esophageal stricture. IR will reattempt on Thursday. No bowel movement. Objective Vital Signs Date Time Temp Pulse Resp B/P Pulse Ox O2 Delivery O2 Flow Rate FiO2 05/24/16 04:00 92 Trach Collar 13.00 70 05/24/16 04:00 97.7 127 24 143/79 Intake and Output 05/23/16 05/23/16 05/24/16 08:00 16:00 00:00 Intake Total 267 ml 964 ml 786 ml Output Total 60 ml 1530 ml 280 ml Balance 207 ml -566 ml 506 ml Result Diagram: 05/24/16 0435 05/24/16 0435 Other Results Microbiology Date/Time Procedure Status Source Growth 05/21/16 06:06 Aerobic Blood Culture - Preliminary Resulted Blood Peripheral NO GROWTH IN 2 DAYS 05/21/16 06:06 Anaerobic Blood Culture - Preliminary Resulted Blood Peripheral NO GROWTH IN 2 DAYS 05/20/16 16:20 Gram Stain - Final Complete Sputum Expectorated Sputum 05/20/16 16:20 Sputum Culture - Final Complete Enterobacter Aerogenes Proteus Mirabilis Imaging Last Impressions Chest X-Ray 05/23/16 0731 Signed Impressions: Service Date/Time: Monday, May 23, 2016 07:45 - CONCLUSION: 1. The left hydropneumothorax is slightly smaller after chest tube placement. No tension seen. The chest tube is positioned at the base. 2. Consolidation and small effusion at the right base not significantly changed. Saravanan Maloney MD Head CT 05/22/16 0000 Signed Impressions: Service Date/Time: April 21:22 - CONCLUSION: No bleed or other acute intracranial abnormality. Saravanan Maloney MD Modified Barium Swallow 05/21/16 0000 Signed Impressions: Service Date/Time: Saturday, May 21, 2016 10:25 - CONCLUSION: Postsurgical deformity of the cervical esophagus without evidence of penetration or aspiration as described. Please see speech pathology report Anastacio Young MD Objective Remarks GENERAL: 86-year-old male, critically ill and cachectic lying in bed in no acute distress SKIN: Warm and dry.. Multiple ecchymosis bilateral upper extremities HEAD: Normocephalic. EYES: No scleral icterus. No injection or drainage. NECK: Laryngeal stoma TEP in place without signs of infection or inflammation. No JVD or lymphadenopathy. CARDIOVASCULAR: Tachycardic, RR. S1, S2 no S4. Without M/C/G/R RESPIRATORY: Breath sounds decreased in the left upper lobe.. Few crackles appreciated bilateral lower lobes GASTROINTESTINAL: Abdomen cachectic, scaphoid and non-tender MUSCULOSKELETAL: No significant peripheral edema. BACK: Nontender without obvious deformity. No CVA tenderness. Urinary Catheter: Yes Assessment to: Continue Arce insert reason: ICU Pt Getting Diuretics Vascular Central Line Catheter: No Assessment to: Continue A/P Assessment and Plan Neuro/Psych: Depression/anxiety EtOH use History bilateral cataracts Chronic dizziness Acetaminophen for fever [place]/as needed morphine for pain management Patient on meclizine 12.5 mg 3 times a day as needed for dizziness at home. This is been held CV: Atrial fibrillation Hypertension Dyslipidemia Grade 1 diastolic heart failure Currently on metoprolol 25 mg by mouth twice a day for blood pressure/A. fib controlled rate control We'll set switched to Lopressor 2.5 IV every 6 hours while nothing by mouth At home on lisinopril 20 mg by mouth daily for hypertension. 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 Worsening left pneumothorax is AM. Recheck chest x -ray after adjusting suctioning this afternoon Pigtail catheter -40 cm H2O. #20 [place] Chest tubes -40 cmH2O. 850/330 output Gentle diuresis with Lasix today. Recheck x-ray in a.m. GI: Severe protein calorie malnutrition Esophageal stricture with failed esophageal dilatation attempt this admission with 10/11 [place] dilators Gastroesophageal reflux disease Plan for PEG tube when stable clinically likely Thursday Currently nothing by mouth Start TPN today Patient is on Protonix 20 g by mouth daily. Prilosec 20 mg by mouth daily home Colace for bowel regimen : Arce will be placed if indicated for accurate I's and O's in a critically ill patient Endo: Hypothyroidism Diabetes mellitus Continue with Levoxyl 100 g by mouth daily Change to 50 g IV daily while nothing by mouth. TSH 10.4 Sliding scale insulin in order to maintain euglycemia. Low regimen every 6 hours Renal: Creatinine currently within normal limits. Monitor urine output carefully. Heme: Leukocytosis Normocytic anemia Follow CBC/CMP daily ID: Proteus/Enterobacter pneumonia Day #4 Rocephin 1 g IV 24 hours. Pertinent cultures 05/20 - blood cultures 2 - no growth 05/20 - sputum - Proteus Mirabella/Enterobacter aeruginosa is pansensitive 05/21 - blood cultures 2 -no growth to date FEN: Hypo-magnesium Hypokalemia Replace per ICU electrolyte protocol. 1 g mag sulfate/30 mEq KCl IV 1 now Change IV fluids to D5 water with 10 mg KCl until PPN started MSK: Severe debilitation On vitamin D 3 2000 units daily. Is currently on hold. Resume when clinically indicated PT evaluate and treat Access - Utilize peripheral IV. Central line if indicated Prophylaxis - GI - Protonix - DVT - SCD/Lovenox Critical Care: The total critical care time was 35 minutes. Time to perform other separately billable procedures was not included in the critical care time. Jose Stafford MD May 24, 2016 07:36
[2016-05-24] MEDS: METOPROLOL TARTRATE 25 MG TAB PO SCH ×2 (08:07→20:32)
[2016-05-24] MEDS: ASPIRIN EC 81 MG TABEC PO SCH (08:07)
[2016-05-24] MEDS: SODIUM CHLORIDE 0.9% FLUSH 5 ML FLUSH FLUSH SCH ×2 (08:07→20:32)
[2016-05-24] MEDS: PANTOPRAZOLE SOD 20 MG DELAYED RELEASE TAB PO SCH (08:07)
[2016-05-24] MEDS: CHOLECALCIFEROL (VIT D3) 1000 UNIT TAB PO SCH (08:08)
[2016-05-24] MEDS: FUROSEMIDE 20 MG/2 ML VIAL IV PUSH SCH (08:13)
[2016-05-24] MEDS: ENOXAPARIN SODIUM 40 MG/0.4 ML SYRINGE SQ SCH (08:24)
[2016-05-24] MEDS ORDERED: METOPROLOL TARTRATE 5 MG/5 ML VIAL ONE (08:26)
[2016-05-24] MEDS: METOPROLOL TARTRATE 5 MG/5 ML VIAL IV PUSH SCH ×3 (08:30→20:32)
[2016-05-24] MEDS: POTASSIUM CHLORIDE INJ 10 MEQ in DEXT 5%-NACL 0.9% 1000 ML INJ 1,000 ML IV SCH ×2 (08:33→19:03)
[2016-05-24] MEDS: POTASSIUM CHLOR 10 MEQ PREMIX 100 ML IV SCH ×3 (08:33→10:39)
[2016-05-24] MEDS: BISACODYL 10 MG SUPP RECTAL SCH (08:57)
[2016-05-24] MEDS: ALBUMIN HUMAN 25% 25 GM/100 ML BAGP IV SCH ×2 (08:58→20:31)
[2016-05-24] MEDS ORDERED: DILTIAZEM INJ 125 MG in SODIUM CHLORIDE 0.9% INJ 100 ML IV SCH (10:00)
--- NOTE | 2016-05-24 10:34 | RADRPT ---
EXAM DATE/TIME: 05/24/2016 10:15 [facility] COMPARISON: CHEST SINGLE AP, May 24, 2016, 4:05. INDICATIONS : Accidental removal of left pigtail chest tube. MEDICAL HISTORY : None. SURGICAL HISTORY : None. ENCOUNTER: Initial ACUITY: 1 day PAIN SCORE: Non-responsive. LOCATION: Left chest FINDINGS: There is cardiomegaly. Left-sided chest tube is noted. There is a small left apical pneumothorax iden tified, decreased in size in the previous study. Multiple left-sided rib fractures are present. There is consolidation in the left lower lobe and right lung base with a right-sided effusion suspected. CONCLUSION: Left sided pneumothorax is decreased in size from previous exam. Jason Prajapati MD on May 24, 2016 at 10:32 Board Certified Radiologist. This report was verified electronically.
[2016-05-24 11:00] LABS: HEMATOCRIT 23.4 % (39.0-51.0); MEAN CELL VOLUME 91.6 FL (80.0-100.0); MEAN CORPUSCULAR HEMOGLOBIN 30.9 PG (27.0-34.0); MEAN CORPUSCULAR HGB CONC 33.8 % (32.0-36.0); PLATELET COUNT 132 TH/MM3 (150-450); RED BLOOD COUNT 2.55 MIL/MM3 (4.50-5.90); RED CELL DISTRIBUTION WIDTH 14.1 % (11.6-17.2); REVIEW FLAG FINAL; WHITE BLOOD COUNT 11.1 TH/MM3 (4.0-11.0)
[2016-05-24 11:09] LABS: INTERNATIONAL NORMALIZED RATIO 1.1 RATIO; PROTHROMBIN TIME - PATIENT 12.7 SEC (9.8-11.6)
--- NOTE | 2016-05-24 11:12 | RADRPT ---
EXAM DATE/TIME: 05/24/2016 11:00 [facility] COMPARISON: No previous studies available for comparison. INDICATIONS : Post PICC line placement MEDICAL HISTORY : None. SURGICAL HISTORY : None. ENCOUNTER: Initial ACUITY: 1 day PAIN SCORE: Non-responsive. LOCATION: Bilateral chest FINDINGS: There are consolidative changes within both lower lobes and a right effusion is noted. Left-sided radha st tube is present and a small left apical pneumothorax is noted. Right PICC line is present and the tip overlies expected location of the SVC/right atrial junction. CONCLUSION: PICC line as above. Jason Prajapati MD on May 24, 2016 at 11:09 Board Certified Radiologist. This report was verified electronically.
[2016-05-24 11:16] LABS: BICARBONATE 22.4 MEQ/L (21.0-32.0); CALCIUM-PROTEIN CORRECTED 8.7 MG/DL (8.5-10.1); POTASSIUM 3.2 MEQ/L (3.5-5.1); TOTAL BILIRUBIN ADULT 0.5 MG/DL (0.2-1.0)
[2016-05-24] MEDS: cefTRIAXone INJ 1,000 MG in SODIUM CHLORIDE 0.9% INJ 100 ML IV SCH (15:04)
--- NOTE | 2016-05-24 15:51 | RADRPT ---
EXAM DATE/TIME: 05/24/2016 15:14 [facility] COMPARISON: CHEST SINGLE AP, May 24, 2016, 11:00. INDICATIONS : Evaluate left pneumothorax MEDICAL HISTORY : None. SURGICAL HISTORY : None. ENCOUNTER: Subsequent ACUITY: 2 days PAIN SCORE: Non-responsive. LOCATION: Left chest FINDINGS: There is a small left hydropneumothorax again noted. Air components are present at the apex and also at the base. This is unchanged. Moderate pleural effusion with basilar and apical consolidation unchanged on the right. Mild cardiomegaly is stable. Right arm PICC again seen, tip at the atriocaval junction. CONCLUSION: 1. No change small left hydropneumothorax with components at the apex and base again seen. 2. Moderate pleural effusion with basilar and apical consolidation unchanged on the right. Saravanan Maloney MD on May 24, 2016 at 15:47 Board Certified Radiologist. This report was verified electronically.
--- NOTE | 2016-05-24 16:14 | MB ---
cc: [facility] DATE OF CONSULTATION 05/24/[address] Gonzales, surgery REASON FOR CONSULTATION Tracheal stoma, respiratory failure and dependency, need for airway access. HISTORY OF PRESENT DISEASE This 86-year-old gentleman was admitted to the hospital with increased shortness of breath, decreased tolerance for exercise or any motion and hypoxia. The patient is now in the ICU. The patient had a history of neck cancer which required total laryngectomy and permanent tracheal stoma. 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 PAST MEDICAL/SURGICAL HISTORY Past surgical history is that of radiation and chemotherapy, tracheostomy, atrial fibrillation, hyperlipidemia, CHF. Ejection fraction about 30% this year. MEDICATIONS The medications can be found on the record. SOCIAL HISTORY The patient does not smoke or drink anymore. PHYSICAL EXAMINATION GENERAL: The physical examination reveals a very cachectic, malnourished, 86-year-old male in no acute distress. Right now he is breathing comfortably with a trache collar over his tracheostomy. HEENT: Normocephalic, normocephalic. No trauma to the head. Pupils equally reactive. Extraocular muscles intact. NECK: Neck very thin. There is a tracheostomy opening which would probably allow size 6 endotracheal tube placement but of course we can enlarge to a larger size if necessary. CHEST: Bilateral breath sounds, very decreased. The patient has severe pulmonary cachexia and general cachexia and functional decline. ABDOMEN: The abdomen is patulous, soft. EXTREMITIES: The extremities are atrophic, within normal limits. IMPRESSION An 86-year-old male in dire straits as far as his functional decline, has a tracheostomy opening for the last year and a half. At this point this is being enough to pass a 6 endotracheal tube if necessary, if the patient would need a tracheostomy; Shiley cannula then I believe the best way would be to take the patient to the operating room. Another way to do this would be simply to intubate the patient through the oral route and bypass the tracheostomy site. Both of these options are viable. At this point the patient ___ any of it and we will see which way it goes. Thank you very much for the referral, going to follow patient with you. Critical care 45 minutes. Berenicebojayleen [place] /1:12 PM /3:57 PM
[2016-05-24] MEDS: MORPHINE SULFATE 4 MG/ML INJ IV PRN (17:22)
[2016-05-24] MEDS ORDERED: POTASSIUM PHOSPHATE MONOBASIC 500 MG TAB PO/TUBE PRN (17:30)
[2016-05-24] MEDS ORDERED: MAGNESIUM SULFATE INJ 2 GM in SODIUM CHLORIDE 0.9% INJ 96 ML IV PRN (17:30)
[2016-05-24] MEDS ORDERED: MAGNESIUM SULFATE INJ 4 GM in SODIUM CHLORIDE 0.9% INJ 92 ML IV PRN (17:30)
[2016-05-24] MEDS ORDERED: MAGNESIUM OXIDE 400 MG TAB PO PRN (17:30)
[2016-05-24] MEDS ORDERED: POTASSIUM PHOSPHATE INJ 30 MMOL in SODIUM CHLOR 0.9% 250 ML INJ 250 ML IV PRN (17:30)
[2016-05-24] MEDS ORDERED: POTASSIUM CL 40 MEQ/30 ML LIQ UDC PO/TUBE PRN ×2 (17:30)
[2016-05-24] MEDS ORDERED: POTASSIUM CHLOR 40 MEQ PREMIX 100 ML IV PRN ×2 (17:30)
[2016-05-24] MEDS ORDERED: POTASSIUM PHOSPHATE MONOBASIC 500 MG TAB PO PRN (17:30)
[2016-05-24] MEDS ORDERED: POTASSIUM CHLOR 20 MEQ PREMIX 100 ML IV PRN ×2 (17:30)
[2016-05-24] MEDS ORDERED: SODIUM PHOSPHATE INJ 30 MMOL in SODIUM CHLOR 0.9% 250 ML INJ 240 ML IV PRN (17:30)
[2016-05-24] MEDS ORDERED: GLUCAGON 1 MG/ML VIAL OTHER PRN (18:15)
[2016-05-24] MEDS: INSULIN NovoLIN REGULAR SUPPLEMENTAL SCALE SQ SCH (20:00)
[2016-05-24] MEDS ORDERED: CLINIMIX E 4.25/5 1000 mL- </= 42 mls/hr IV SCH ×3 (20:00)
[2016-05-24] MEDS ORDERED: FAT EMULSION 20% INJ 250 ML (@10 mls/hr) IV SCH (20:00)
[2016-05-24] MEDS: INSULIN DETEMIR 100 UNITS/ML VIAL SQ SCH (20:31)
[2016-05-24] MEDS: CLINIMIX E 5/25 2000 mL- >42 mls/hr IV-CENTRAL SCH ×3 (20:32)
[2016-05-25] VITALS (17 sets, daily range): BP systolic 126–150; BP diastolic 72–87; PULSE 94–124; RESP 11–24; TEMP 97.3–99.2; O2SAT 94–100
[2016-05-25] MEDS: RESP: ALBUTEROL 2.5 MG/IPRATROPIUM 0.5 MG NEB (SCH) NEB ×6 (00:22→20:29)
[2016-05-25] MEDS: METOPROLOL TARTRATE 5 MG/5 ML VIAL IV PUSH SCH ×4 (03:15→20:04)
[2016-05-25] MEDS: MORPHINE SULFATE 4 MG/ML INJ IV PRN ×2 (03:15→23:10)
[2016-05-25] MEDS: INSULIN NovoLIN REGULAR SUPPLEMENTAL SCALE SQ SCH ×6 (04:00→20:00)
[2016-05-25 04:14] LABS: AUTOMATED NEUTROPHIL # 8.9 TH/MM3 (1.8-7.7); BASOPHIL % 0.2 % (0.0-2.0); EOSINOPHIL % 0.2 % (0.0-4.0); HEMATOCRIT 21.2 % (39.0-51.0); HEMO FLAGS DIFF FINAL; LYMPH % 5.1 % (9.0-44.0); LYMPHOCYTE # 0.5 TH/MM3 (1.0-4.8); MEAN CELL VOLUME 91.1 FL (80.0-100.0); MEAN CORPUSCULAR HEMOGLOBIN 31.6 PG (27.0-34.0); MEAN CORPUSCULAR HGB CONC 34.6 % (32.0-36.0); MONO % 5.4 % (0.0-8.0); NEUT % 89.1 % (16.0-70.0); PLATELET COUNT 120 TH/MM3 (150-450); RED BLOOD COUNT 2.33 MIL/MM3 (4.50-5.90); RED CELL DISTRIBUTION WIDTH 14.3 % (11.6-17.2)
[2016-05-25] MEDS: POTASSIUM CHLORIDE INJ 10 MEQ in DEXT 5%-NACL 0.9% 1000 ML INJ 1,000 ML IV SCH ×2 (05:06→08:00)
--- NOTE | 2016-05-25 05:15 | RADRPT ---
EXAM DATE/TIME: 05/25/2016 03:43 [facility] COMPARISON: CHEST SINGLE AP, May 24, 2016, 15:14. CHEST SINGLE AP, May 24, 2016, 11:00. CHEST SINGLE AP, May 24, 2016, 10:15. INDICATIONS : Please follow up pnuemothorax. MEDICAL HISTORY : None. SURGICAL HISTORY : None. ENCOUNTER: Subsequent ACUITY: 1 week PAIN SCORE: Non-responsive. LOCATION: Bilateral chest FINDINGS: A single view of the chest demonstrates the left chest tube and right-sided PICC line are stable. The re is a small residual left apical pneumothorax. Diffuse airspace disease right greater left with a m oderate pleural effusion is unchanged. The cardiomediastinal contours are unremarkable. Osseous str uctures are intact. CONCLUSION: Small left apical pneumothorax remains despite the presence of a left chest. Patchy airspace disease right greater left Price Peng MD on May 25, 2016 at 5:13 Board Certified Radiologist. This report was verified electronically.
[2016-05-25] MEDS: LEVOTHYROXINE SODIUM 100 MCG VIAL IV PUSH SCH ×2 (05:20→20:04)
[2016-05-25] MEDS: DOCUSATE SODIUM 100 MG CAP PO SCH ×3 (05:20→20:04)
[2016-05-25] MEDS: BISACODYL 10 MG SUPP RECTAL SCH ×2 (07:55→17:06)
[2016-05-25] MEDS: METOPROLOL TARTRATE 25 MG TAB PO SCH ×2 (07:55→20:04)
[2016-05-25] MEDS: PANTOPRAZOLE SOD 20 MG DELAYED RELEASE TAB PO SCH (07:55)
[2016-05-25] MEDS: CHOLECALCIFEROL (VIT D3) 1000 UNIT TAB PO SCH (07:55)
[2016-05-25] MEDS: ASPIRIN EC 81 MG TABEC PO SCH (07:55)
[2016-05-25] MEDS: SODIUM CHLOR 0.9% 1000 ML INJ 1,000 ML IV SCH (08:00)
[2016-05-25] MEDS: ENOXAPARIN SODIUM 40 MG/0.4 ML SYRINGE SQ SCH (08:21)
[2016-05-25] MEDS: SODIUM CHLORIDE 0.9% FLUSH 5 ML FLUSH FLUSH SCH ×2 (08:22→20:04)
[2016-05-25] MEDS: FUROSEMIDE 20 MG/2 ML VIAL IV PUSH SCH (08:22)
[2016-05-25] MEDS: ALBUMIN HUMAN 25% 25 GM/100 ML BAGP IV SCH ×2 (08:23→20:03)
[2016-05-25 09:09] LABS: CALCIUM-PROTEIN CORRECTED 8.8 MG/DL (8.5-10.1); MAGNESIUM 1.9 MG/DL (1.5-2.5); TOTAL BILIRUBIN ADULT 0.3 MG/DL (0.2-1.0)
[2016-05-25 09:10] LABS: BICARBONATE 22.5 MEQ/L (21.0-32.0); POTASSIUM 3.1 MEQ/L (3.5-5.1)
[2016-05-25] MEDS: INSULIN DETEMIR 100 UNITS/ML VIAL SQ SCH ×2 (09:34→20:03)
--- NOTE | 2016-05-25 10:47 | HHI.CCPN ---
Subjective Remarks/Hospital Course 86-year-old white male admitted for evaluation of shortness of breath and weakness. Per medical record the patient last 2-3 days has noted increasing shortness of breath, decreased exercise tolerance, increased cough and malaise. He has not been able to eat. With each attempt to eat he gags, chokes and vomits. He has a history of head and neck cancer. He has a tracheostomy. He is feeling short of breath and having some colored sputum. He was admitted to [facility] where he was found on a floor today also hypoxic. [facility] medicine was consulted to help to manage patient's hypoxemia. 05/23: Patient with large left-sided pneumothorax. Originally pigtail catheter placed over the wound did not reinflated for a 20 [place] chest tube was placed and lungs currently inflated. Oxygen saturations currently 100 percent. 05/24: Increasing pneumothorax on chest x-ray this a.m., atrium change no saturations improved to 100%. Requesting tube feeds however unable to provide due to unstable medical status/esophageal stricture. IR will reattempt on Thursday. No bowel movement. SUBJECTIVE: 05/25/16: Currently afebrile. Pigtail catheter "fell out" yesterday. Lungs still inflated with small left hydropneumothorax. Appears comfortable at bedside. Remains tachycardic. Pain controlled chest tube site with as needed narcotics. One BM. Objective Vital Signs Date Time Temp Pulse Resp B/P Pulse Ox O2 Delivery O2 Flow Rate FiO2 05/25/16 07:31 100 Trach Collar 98 05/25/16 06:00 109 05/25/16 04:00 97.3 11 126/72 05/25/16 04:00 11.00 Intake and Output 05/24/16 05/24/16 05/25/16 08:00 16:00 00:00 Intake Total 705 ml 757 ml 891 ml Output Total 230 ml 960 ml 200 ml Balance 475 ml -203 ml 691 ml Result Diagram: 05/25/16 0357 05/25/16 0357 Imaging Last Impressions Chest X-Ray 05/23/16 0731 Signed Impressions: Service Date/Time: Monday, May 23, 2016 07:45 - CONCLUSION: 1. The left hydropneumothorax is slightly smaller after chest tube placement. No tension seen. The chest tube is positioned at the base. 2. Consolidation and small effusion at the right base not significantly changed. Saravanan Maloney MD Head CT 05/22/16 0000 Signed Impressions: Service Date/Time: April 21:22 - CONCLUSION: No bleed or other acute intracranial abnormality. Saravanan Maloney MD Modified Barium Swallow 05/21/16 0000 Signed Impressions: Service Date/Time: Saturday, May 21, 2016 10:25 - CONCLUSION: Postsurgical deformity of the cervical esophagus without evidence of penetration or aspiration as described. Please see speech pathology report Anastacio Young MD Objective Remarks GENERAL: 86-year-old male, critically ill and cachectic lying in bed in no acute distress SKIN: Warm and dry.. Multiple ecchymosis bilateral upper extremities HEAD: Normocephalic. EYES: No scleral icterus. No injection or drainage. NECK: Laryngeal TEP in place without signs of infection or inflammation. No JVD or lymphadenopathy. CARDIOVASCULAR: Tachycardic, irregular. S1, S2 no S4. Without M/C/G/R RESPIRATORY: Breath sounds decreased in the left upper lobe.. Few crackles appreciated bilateral lower lobes. Left-sided 20 [place] chest tube intact GASTROINTESTINAL: Abdomen cachectic, scaphoid and non-tender MUSCULOSKELETAL: No significant peripheral edema. BACK: Nontender without obvious deformity. No CVA tenderness. Urinary Catheter: Yes Assessment to: Continue Arce insert reason: ICU Pt Getting Diuretics Vascular Central Line Catheter: Yes Assessment to: Continue Date of Insertion: May 24, 2016 Line: PICC Location: Antecubital A/P Assessment and Plan Neuro/Psych: Depression/anxiety EtOH use History bilateral cataracts Chronic dizziness Acetaminophen for fever [place]/as needed morphine for pain management Patient on meclizine 12.5 mg 3 times a day as needed for dizziness at home. This has been held currently. Resume when clinically indicated CV: Atrial fibrillation Hypertension Dyslipidemia Grade 1 diastolic heart failure Currently on metoprolol 25 mg by mouth twice a day for blood pressure/A. fib controlled rate control We'll set switched to Lopressor 2.5 IV every 6 hours while nothing by mouth At home on lisinopril 20 mg by mouth daily for hypertension. 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 Worsening left pneumothorax is AM. Recheck chest x -ray after adjusting suctioning this afternoon Pigtail catheter -40 cm removed 31 #20 [place] Chest tubes -20 cmH2O. 350/ 4 10 cc SS output Gentle diuresis with Bumex today. Recheck x-ray in a.m. GI: Severe protein calorie malnutrition Esophageal stricture with failed esophageal dilatation attempt this admission with 10/ [place] dilators Gastroesophageal reflux disease Plan for PEG tube when stable clinically likely Thursday Currently nothing by mouth Started TPN 05/24 Patient is on Protonix 40 mg IV daily. Prilosec 20 mg by mouth daily home Dulcolax for bowel regimen : Arce will be placed if indicated for accurate I's and O's in a critically ill patient Endo: Hypothyroidism Diabetes mellitus Continue with Levoxyl 100 g by mouth daily Change to 50 g IV daily while nothing by mouth. TSH 10.4 Sliding scale insulin in order to maintain euglycemia. Low regimen every 6 hours Renal: Creatinine currently within normal limits. Monitor urine output carefully. Heme: Normocytic anemia Follow CBC/CMP daily ID: Proteus/Enterobacter pneumonia Day #5 Rocephin 1 g IV 24 hours. Pertinent cultures 05/20 - blood cultures 2 - no growth 05/20 - sputum - Proteus Mirabella/Enterobacter aeruginosa is pansensitive 05/21 - blood cultures 2 -no growth to date FEN: Hypokalemia Replace per ICU electrolyte protocol. MSK: Severe debilitation On vitamin D 3 2000 units daily. Is currently on hold. Resume when clinically indicated PT evaluate and treat Access - Utilize PICC line day #2 Prophylaxis - GI - Protonix - DVT - SCD/Lovenox Critical Care: The total critical care time was 35 minutes. Time to perform other separately billable procedures was not included in the critical care time. Jose Stafford MD May 25, 2016 10:47
[2016-05-25] MEDS: PANTOPRAZOLE SODIUM 40 MG VIAL IV PUSH SCH (12:16)
[2016-05-25] MEDS ORDERED: BUMETANIDE INJ 1 MG/4 ML VIAL IV PUSH ONE (16:00)
[2016-05-25] MEDS: cefTRIAXone INJ 1,000 MG in SODIUM CHLORIDE 0.9% INJ 100 ML IV SCH (17:05)
[2016-05-25] MEDS: FAT EMULSION 20% INJ 250 ML (Twice weekly over 8 hours) IV-CENTRAL SCH (20:04)
[2016-05-25] MEDS: CLINIMIX E 5/25 2000 mL- >42 mls/hr IV-CENTRAL SCH ×3 (20:24)
[2016-05-26] VITALS (13 sets, daily range): BP systolic 117–131; BP diastolic 73–87; PULSE 95–114; RESP 18–28; TEMP 97.6–98.9; O2SAT 93–100
[2016-05-26] MEDS: RESP: ALBUTEROL 2.5 MG/IPRATROPIUM 0.5 MG NEB (SCH) NEB ×7 (00:31→23:44)
[2016-05-26] MEDS: METOPROLOL TARTRATE 5 MG/5 ML VIAL IV PUSH SCH ×4 (03:47→21:01)
[2016-05-26] MEDS: INSULIN NovoLIN REGULAR SUPPLEMENTAL SCALE SQ SCH ×6 (04:00→20:00)
[2016-05-26 04:19] LABS: BASOPHIL # 0.1 TH/MM3 (0-0.2); BASOPHIL % 0.6 % (0.0-2.0); EOSINOPHIL % 0.3 % (0.0-4.0); HEMATOCRIT 25.9 % (39.0-51.0); LYMPH % 3.7 % (9.0-44.0); LYMPHOCYTE # 0.4 TH/MM3 (1.0-4.8); MEAN CORPUSCULAR HEMOGLOBIN 31.8 PG (27.0-34.0); MEAN CORPUSCULAR HGB CONC 35.3 % (32.0-36.0); NEUT % 91.4 % (16.0-70.0); PLATELET COUNT 116 TH/MM3 (150-450); RED BLOOD COUNT 2.88 MIL/MM3 (4.50-5.90); RED CELL DISTRIBUTION WIDTH 14.8 % (11.6-17.2); WHITE BLOOD COUNT 10.9 TH/MM3 (4.0-11.0)
[2016-05-26 04:24] LABS: HEMO FLAGS AUTO DIFF
[2016-05-26 04:47] LABS: BICARBONATE 26.5 MEQ/L (21.0-32.0); CALCIUM-PROTEIN CORRECTED 8.5 MG/DL (8.5-10.1); MAGNESIUM 1.6 MG/DL (1.5-2.5); POTASSIUM 4.3 MEQ/L (3.5-5.1); TOTAL BILIRUBIN ADULT 0.7 MG/DL (0.2-1.0)
[2016-05-26 05:06] LABS: PLATELET ESTIMATE SMEAR LOW (NORMAL); PLATELET MORPHOLOGY NORMAL (NORMAL); SCAN/DIFF AUTO DIFF CONFIRMED
--- NOTE | 2016-05-26 05:42 | RADRPT ---
EXAM DATE/TIME: 05/26/2016 05:00 [facility] COMPARISON: CHEST SINGLE AP, May 25, 2016, 3:43. INDICATIONS : Please follow up pnuemothorax. MEDICAL HISTORY : None. SURGICAL HISTORY : None. ENCOUNTER: Subsequent ACUITY: 1 week PAIN SCORE: Non-responsive. LOCATION: Bilateral chest FINDINGS: One a single portable frontal view of the chest shows a right-sided PICC line and left-sided thoracos natalia tube. No pneumothorax observed. Bilateral pleural effusions and bilateral pulmonary infiltrates are noted. The infiltrates have progressed from the prior study. Heart is normal in size. CONCLUSION: 1. No pneumothorax. 2. Progression in the bilateral pulmonary infiltrates. 3. Stable bilateral pleural effusions. Earnest Willis Jr., MD on May 26, 2016 at 5:39 Board Certified Radiologist. This report was verified electronically.
--- NOTE | 2016-05-26 07:59 | HHI.CCPN ---
Subjective Remarks/Hospital Course 86-year-old white male admitted for evaluation of shortness of breath and weakness. Per medical record the patient last 2-3 days has noted increasing shortness of breath, decreased exercise tolerance, increased cough and malaise. He has not been able to eat. With each attempt to eat he gags, chokes and vomits. He has a history of head and neck cancer. He has a tracheostomy. He is feeling short of breath and having some colored sputum. He was admitted to [facility] where he was found on a floor today also hypoxic. [facility] medicine was consulted to help to manage patient's hypoxemia. 05/23: Patient with large left-sided pneumothorax. Originally pigtail catheter placed over the wound did not reinflated for a 20 Mosotho chest tube was placed and lungs currently inflated. Oxygen saturations currently 100 percent. 05/24: Increasing pneumothorax on chest x-ray this a.m., atrium change no saturations improved to 100%. Requesting tube feeds however unable to provide due to unstable medical status/esophageal stricture. IR will reattempt on Thursday. No bowel movement. 05/25/16: Currently afebrile. Pigtail catheter "fell out" yesterday. Lungs still inflated with small left hydropneumothorax. Appears comfortable at bedside. Remains tachycardic. Pain controlled chest tube site with as needed narcotics. One BM. SUBJECTIVE: 05/26/16: Afebrile. No pneumothorax on chest x-ray this AM. Remains on high flow oxygen through stoma. Worsening chest x-ray. Appears comfortable. Tolerating TPN. No bowel movement yesterday. Objective Vital Signs Date Time Temp Pulse Resp B/P Pulse Ox O2 Delivery O2 Flow Rate FiO2 05/26/16 06:00 109 05/26/16 04:00 100 Trach Collar 13.00 98 05/26/16 04:00 98.5 18 120/74 Intake and Output 05/25/16 05/25/16 05/25/16 07:59 15:59 23:59 Intake Total 1017 ml 667 ml 1136 ml Output Total 600 ml 1240 ml 355 ml Balance 417 ml -573 ml 781 ml Result Diagram: 05/26/16 0400 05/26/16 0400 Imaging Last Impressions Chest X-Ray 05/25/16 0600 Signed Impressions: Service Date/Time: Wednesday, May 25, 2016 03:43 - CONCLUSION: Small left apical pneumothorax remains despite the presence of a left chest. Patchy airspace disease right greater left Price Peng MD Head CT 05/22/16 0000 Signed Impressions: Service Date/Time: April 21:22 - CONCLUSION: No bleed or other acute intracranial abnormality. Saravanan Maloney MD Modified Barium Swallow 05/21/16 0000 Signed Impressions: Service Date/Time: Saturday, May 21, 2016 10:25 - CONCLUSION: Postsurgical deformity of the cervical esophagus without evidence of penetration or aspiration as described. Please see speech pathology report Anastacio Young MD Objective Remarks GENERAL: 86-year-old male, critically ill and cachectic lying in bed in no acute distress SKIN: Warm and dry.. Multiple ecchymosis bilateral upper extremities HEAD: Normocephalic. EYES: No scleral icterus. No injection or drainage. NECK: Laryngeal TEP in place without signs of infection or inflammation. No JVD or lymphadenopathy. CARDIOVASCULAR: Tachycardic, irregular. S1, S2 no S4. Without M/C/G/R RESPIRATORY: Breath sounds decreased in the left upper lobe.. Few crackles appreciated bilateral lower lobes. Left-sided 20 Mosotho chest tube intact GASTROINTESTINAL: Abdomen cachectic, scaphoid and non-tender MUSCULOSKELETAL: No significant peripheral edema. BACK: Nontender without obvious deformity. No CVA tenderness. Vascular Central Line Catheter: Yes Assessment to: Continue Date of Insertion: May 24, 2016 Line: PICC Side: Right Location: Antecubital A/P Assessment and Plan Neuro/Psych: Depression/anxiety EtOH use History bilateral cataracts Chronic dizziness Acetaminophen for fever [place]/as needed morphine for pain management Patient on meclizine 12.5 mg 3 times a day as needed for dizziness at home. This has been held currently. Resume when clinically indicated CV: Atrial fibrillation Hypertension Dyslipidemia Grade 1 diastolic heart failure Currently on metoprolol 25 mg by mouth twice a day for blood pressure/A. fib controlled rate control Switched to Lopressor 5 IV every 6 hours while nothing by mouth At home on lisinopril 20 mg by mouth daily for hypertension. 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 Worsening bilateral interest. Small bilateral pleural effusions. #20 Mosotho Chest tubes -20 cmH2O. 820 cc SS output Gentle diuresis with Lasix 40 IV twice a day GI: Severe protein calorie malnutrition Esophageal stricture with failed esophageal dilatation attempt this admission with 03/04 Mosotho dilators Gastroesophageal reflux disease Plan for PEG tube when stable clinically likely Thursday with IR Currently nothing by mouth Started TPN 05/24 Patient is on Protonix 40 mg IV daily. Prilosec 20 mg by mouth daily home Glycerin suppository bowel regimen : Arce will be placed if indicated for accurate I's and O's in a critically ill patient Endo: Hypothyroidism Diabetes mellitus Continue with Levoxyl 100 g by mouth daily Change to 50 g IV daily while nothing by mouth. TSH 10.4 Sliding scale insulin in order to maintain euglycemia. Low regimen every 6 hours Levemir 5 units twice a day. 8 units insulin sliding scale past 24 hours. Renal: Creatinine currently within normal limits. Monitor urine output carefully. Heme: Normocytic anemia Follow CBC/CMP daily ID: Proteus/Enterobacter pneumonia Day #6 Rocephin 2 g IV 24 hours. Pertinent cultures 05/20 - blood cultures 2 - no growth 05/20 - sputum - Proteus Mirabella/Enterobacter aeruginosa is pansensitive 05/21 - blood cultures 2 -no growth to date FEN: Hypokalemia - resolved Replace per ICU electrolyte protocol. MSK: Severe debilitation On vitamin D 3 2000 units daily. Is currently on hold. Resume when clinically indicated PT evaluate and treat Access - Utilize right upper extremity PICC line day #3 Prophylaxis - GI - Protonix - DVT - SCD/Lovenox Critical Care: The total critical care time was 35 minutes. Time to perform other separately billable procedures was not included in the critical care time. Jose Stafford MD May 26, 2016 07:59 Jose Stafford MD May 26, 2016 07:59
[2016-05-26] MEDS ORDERED: GLYCERIN ADULT 2 GM SUPP RECTAL ONE ×2 (08:00→10:00)
[2016-05-26] MEDS ORDERED: GLYCERIN ADULT 2 GM SUPP RECTAL PRN (08:00)
[2016-05-26] MEDS: CHOLECALCIFEROL (VIT D3) 1000 UNIT TAB PO SCH ×2 (08:24→08:52)
[2016-05-26] MEDS: BISACODYL 10 MG SUPP RECTAL SCH ×2 (08:24→09:00)
[2016-05-26] MEDS: ENOXAPARIN SODIUM 40 MG/0.4 ML SYRINGE SQ SCH (08:26)
[2016-05-26] MEDS: SODIUM CHLORIDE 0.9% FLUSH 5 ML FLUSH FLUSH SCH ×2 (08:27→21:04)
[2016-05-26] MEDS: ASPIRIN EC 81 MG TABEC PO SCH ×2 (08:27→08:51)
[2016-05-26] MEDS: METOPROLOL TARTRATE 25 MG TAB PO SCH ×3 (08:33→20:05)
[2016-05-26] MEDS: FUROSEMIDE 20 MG/2 ML VIAL IV PUSH SCH ×2 (08:33→21:03)
[2016-05-26] MEDS: cefTRIAXone INJ 2,000 MG in SODIUM CHLORIDE 0.9% INJ 100 ML IV SCH (08:34)
[2016-05-26] MEDS: INSULIN DETEMIR 100 UNITS/ML VIAL SQ SCH ×2 (08:34→21:02)
[2016-05-26 09:13] LABS: CRITICAL VALUE YES
[2016-05-26 09:14] LABS: CRITICAL VALUE YES
[2016-05-26] MEDS: PANTOPRAZOLE SODIUM 40 MG VIAL IV PUSH SCH (13:19)
--- NOTE | 2016-05-26 16:29 | RADRPT ---
EXAM DATE/TIME: 05/26/2016 15:44 [facility] COMPARISON: BA SWALLOW W/SPEECH PATHOLOGY, May 21, 2016, 10:25. INDICATIONS : Ileus. MEDICAL HISTORY : Hypertension. SURGICAL HISTORY : None. ENCOUNTER: Initial ACUITY: 4 - 6 days PAIN SCORE: 9/10 LOCATION: Bilateral abdomen FINDINGS: No viscous distention seen. No evidence of free air. Barium from the recent swallow study is in the c olon. There is right greater left lung base consolidation. CONCLUSION: Benign-appearing abdomen. No obstruction or perceptible ileus. Saravanan Maloney MD on May 26, 2016 at 16:26 Board Certified Radiologist. This report was verified electronically.
[2016-05-26] MEDS: DOCUSATE SODIUM 100 MG CAP PO SCH (18:30)
[2016-05-26] MEDS: CLINIMIX E 5/25 2000 mL- >42 mls/hr IV-CENTRAL SCH ×3 (20:56)
[2016-05-26] MEDS: MORPHINE SULFATE 4 MG/ML INJ IV PRN (21:02)
[2016-05-27] VITALS (15 sets, daily range): BP systolic 114–132; BP diastolic 67–76; PULSE 84–104; RESP 14–28; TEMP 97.6–98.3; O2SAT 96–100
[2016-05-27] MEDS: MORPHINE SULFATE 4 MG/ML INJ IV PRN (02:37)
[2016-05-27] MEDS: METOPROLOL TARTRATE 5 MG/5 ML VIAL IV PUSH SCH ×4 (02:37→20:07)
[2016-05-27] MEDS: RESP: ALBUTEROL 2.5 MG/IPRATROPIUM 0.5 MG NEB (SCH) NEB ×6 (03:00→23:44)
[2016-05-27] MEDS: INSULIN NovoLIN REGULAR SUPPLEMENTAL SCALE SQ SCH ×6 (04:00→20:00)
[2016-05-27 05:14] LABS: AUTOMATED NEUTROPHIL # 8.3 TH/MM3 (1.8-7.7); BASOPHIL % 0.3 % (0.0-2.0); EOSINOPHIL # 0.1 TH/MM3 (0-0.4); EOSINOPHIL % 0.8 % (0.0-4.0); HEMATOCRIT 26.2 % (39.0-51.0); HEMO FLAGS DIFF FINAL; LYMPH % 4.8 % (9.0-44.0); LYMPHOCYTE # 0.5 TH/MM3 (1.0-4.8); MEAN CELL VOLUME 91.3 FL (80.0-100.0); MEAN CORPUSCULAR HEMOGLOBIN 31.2 PG (27.0-34.0); MEAN CORPUSCULAR HGB CONC 34.2 % (32.0-36.0); MONO % 9.5 % (0.0-8.0); NEUT % 84.6 % (16.0-70.0); PLATELET COUNT 130 TH/MM3 (150-450); RED BLOOD COUNT 2.87 MIL/MM3 (4.50-5.90); RED CELL DISTRIBUTION WIDTH 14.8 % (11.6-17.2); WHITE BLOOD COUNT 9.8 TH/MM3 (4.0-11.0)
[2016-05-27 05:38] LABS: ALKALINE PHOSPHATASE 54 U/L (45-117); ALT (GPT) 14 U/L (12-78); ANION GAP 7 MEQ/L (5-15); AST (GOT) 13 U/L (15-37); BICARBONATE 28.2 MEQ/L (21.0-32.0); BLOOD UREA NITROGEN 31 MG/DL (7-18); CHLORIDE 108 MEQ/L (98-107); GLOMERULAR FILTRATION RATE 43 ML/MIN (>89); MAGNESIUM 2.1 MG/DL (1.5-2.5); POTASSIUM 4.2 MEQ/L (3.5-5.1); SODIUM (NA) 143 MEQ/L (136-145); TOTAL BILIRUBIN ADULT 0.8 MG/DL (0.2-1.0)
[2016-05-27] MEDS: DOCUSATE SODIUM 100 MG CAP PO SCH ×2 (05:43→18:30)
[2016-05-27] MEDS: LEVOTHYROXINE SODIUM 100 MCG VIAL IV PUSH SCH (06:25)
[2016-05-27] MEDS: ENOXAPARIN SODIUM 40 MG/0.4 ML SYRINGE SQ SCH (08:00)
[2016-05-27] MEDS: ASPIRIN EC 81 MG TABEC PO SCH (09:00)
[2016-05-27] MEDS: CHOLECALCIFEROL (VIT D3) 1000 UNIT TAB PO SCH (09:00)
[2016-05-27] MEDS: METOPROLOL TARTRATE 25 MG TAB PO SCH ×2 (09:00→20:07)
[2016-05-27] MEDS: FUROSEMIDE 20 MG/2 ML VIAL IV PUSH SCH (09:01)
[2016-05-27] MEDS: BISACODYL 10 MG SUPP RECTAL SCH ×2 (09:01)
[2016-05-27] MEDS: INSULIN DETEMIR 100 UNITS/ML VIAL SQ SCH ×2 (09:01→20:08)
[2016-05-27] MEDS: SODIUM CHLORIDE 0.9% FLUSH 5 ML FLUSH FLUSH SCH ×2 (09:03→20:07)
[2016-05-27] MEDS: cefTRIAXone INJ 2,000 MG in SODIUM CHLORIDE 0.9% INJ 100 ML IV SCH (09:03)
[2016-05-27] MEDS: DEXTROSE 50% IN WATER 50 ML VIAL(D50) IV PUSH PRN (09:09)
[2016-05-27] MEDS: PANTOPRAZOLE SODIUM 40 MG VIAL IV PUSH SCH (12:58)
[2016-05-27] MEDS ORDERED: SODIUM CHLORID 0.9% 500 ML INJ 500 ML IV ONE (14:00)
[2016-05-27] MEDS ORDERED: ALBUMIN HUMAN 25% 25 GM/100 ML BAGP IV ONE (14:00)
--- NOTE | 2016-05-27 14:01 | HHI.CCPN ---
Subjective Remarks/Hospital Course 86-year-old white male admitted for evaluation of shortness of breath and weakness. Per medical record the patient last 2-3 days has noted increasing shortness of breath, decreased exercise tolerance, increased cough and malaise. He has not been able to eat. With each attempt to eat he gags, chokes and vomits. He has a history of head and neck cancer. He has a tracheostomy. He is feeling short of breath and having some colored sputum. He was admitted to [facility] where he was found on a floor today also hypoxic. [facility] medicine was consulted to help to manage patient's hypoxemia. 05/23: Patient with large left-sided pneumothorax. Originally pigtail catheter placed over the wound did not reinflated for a 20 English chest tube was placed and lungs currently inflated. Oxygen saturations currently 100 percent. 05/24: Increasing pneumothorax on chest x-ray this a.m., atrium change no saturations improved to 100%. Requesting tube feeds however unable to provide due to unstable medical status/esophageal stricture. IR will reattempt on Thursday. No bowel movement. 05/25/16: Currently afebrile. Pigtail catheter "fell out" yesterday. Lungs still inflated with small left hydropneumothorax. Appears comfortable at bedside. Remains tachycardic. Pain controlled chest tube site with as needed narcotics. One BM. 05/26/16: Afebrile. No pneumothorax on chest x-ray this AM. Remains on high flow oxygen through stoma. Worsening chest x-ray. Appears comfortable. Tolerating TPN. No bowel movement yesterday. SUBJECTIVE: 05/27/16: Afebrile. Plan for PEG tube placement today with IR. Decreased urine output noted. Diuretics have been held. Denies chest pain or shortness of breath currently. Objective Vital Signs Date Time Temp Pulse Resp B/P Pulse Ox O2 Delivery O2 Flow Rate FiO2 05/27/16 12:00 100 Trach Collar 13.00 60 05/27/16 12:00 93 05/27/16 08:00 97.9 14 116/70 Intake and Output 05/26/16 05/26/16 05/27/16 08:00 16:00 00:00 Intake Total 684 ml 796 ml 342 ml Output Total 750 ml 875 ml 305 ml Balance -66 ml -79 ml 37 ml Result Diagram: 1/3/17 0500 05/27/16 0500 Other Results Microbiology Date/Time Procedure Status Source Growth 05/27/16 11:50 Gram Stain Received Sputum Expectorated Sputum Pending 05/27/16 11:50 Sputum Culture Received Sputum Expectorated Sputum Pending Imaging Last Impressions Chest X-Ray 05/26/16 0000 Signed Impressions: Service Date/Time: Thursday, May 26, 2016 05:00 - CONCLUSION: 1. No pneumothorax. 2. Progression in the bilateral pulmonary infiltrates. 3. Stable bilateral pleural effusions. Earnest Willis Jr., MD Abdomen X-Ray 05/26/16 0000 Signed Impressions: Service Date/Time: Thursday, May 26, 2016 15:44 - CONCLUSION: Benign-appearing abdomen. No obstruction or perceptible ileus. Saravanan Maloney MD Head CT 05/22/16 0000 Signed Impressions: Service Date/Time: April 21:22 - CONCLUSION: No bleed or other acute intracranial abnormality. Saravanan Maloney MD Modified Barium Swallow 05/21/16 0000 Signed Impressions: Service Date/Time: Saturday, May 21, 2016 10:25 - CONCLUSION: Postsurgical deformity of the cervical esophagus without evidence of penetration or aspiration as described. Please see speech pathology report Anastacio Young MD Objective Remarks GENERAL: 86-year-old male, critically ill and cachectic lying in bed in no acute distress SKIN: Warm and dry.. Multiple ecchymosis bilateral upper extremities HEAD: Normocephalic. EYES: No scleral icterus. No injection or drainage. NECK: Laryngeal TEP in place without signs of infection or inflammation. No JVD or lymphadenopathy. CARDIOVASCULAR: Tachycardic, irregular. S1, S2 no S4. Without M/C/G/R RESPIRATORY: Breath sounds decreased in the left upper lobe.. Few crackles appreciated bilateral lower lobes. Left-sided 20 English chest tube intact GASTROINTESTINAL: Abdomen cachectic, scaphoid and non-tender MUSCULOSKELETAL: No significant peripheral edema. BACK: Nontender without obvious deformity. No CVA tenderness. Date of Insertion: May 24, 2016 Line: PICC Side: Right Location: Antecubital A/P Assessment and Plan Neuro/Psych: Depression/anxiety EtOH use History bilateral cataracts Chronic dizziness Acetaminophen for fever [place]/as needed morphine for pain management Patient on meclizine 12.5 mg 3 times a day as needed for dizziness at home. This has been held currently. Resume when clinically indicated CV: Atrial fibrillation Hypertension Dyslipidemia Grade 1 diastolic heart failure Currently on metoprolol 25 mg by mouth twice a day for blood pressure/A. fib controlled rate control Switched to Lopressor 5 IV every 6 hours while nothing by mouth At home on lisinopril 20 mg by mouth daily for hypertension. 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 Small bilateral pleural effusions. Repeat in a.m. #20 English Chest tubes -20 cmH2O. 110 cc SS output Gentle diuresis with Lasix 40 IV twice a day will be held in light of decreased urine output GI: Severe protein calorie malnutrition Esophageal stricture with failed esophageal dilatation attempt this admission with 10/11 English dilators Gastroesophageal reflux disease Plan for PEG tube when stable clinically likely Thursday with IR Currently nothing by mouth Started TPN 05/24 Patient is on Protonix 40 mg IV daily. Prilosec 20 mg by mouth daily home Glycerin suppository bowel regimen : Arce will be placed if indicated for accurate I's and O's in a critically ill patient Endo: Hypothyroidism Diabetes mellitus Continue with Levoxyl 100 g by mouth daily Change to 50 g IV daily while nothing by mouth. TSH 10.4 Sliding scale insulin in order to maintain euglycemia. Low regimen every 6 hours Levemir 5 units twice a day. 8 units insulin sliding scale past 24 hours. Renal: Creatinine currently within normal limits. Monitor urine output carefully. Heme: Normocytic anemia Follow CBC/CMP daily ID: Proteus/Enterobacter pneumonia Day #7 Rocephin 2 g IV 24 hours. Pertinent cultures 05/20 - blood cultures 2 - no growth 05/20 - sputum - Proteus Mirabella/Enterobacter aeruginosa is pansensitive 05/21 - blood cultures 2 -no growth to date 05/27 - sputum --pending FEN: Hypokalemia - resolved Replace per ICU electrolyte protocol. MSK: Severe debilitation On vitamin D 3 2000 units daily. Is currently on hold. Resume when clinically indicated PT evaluate and treat Access - Utilize right upper extremity PICC line day #4 Prophylaxis - GI - Protonix - DVT - SCD/Lovenox Critical Care: The total critical care time was 35 minutes. Time to perform other separately billable procedures was not included in the critical care time. Jose Stafford MD May 27, 2016 14:01
[2016-05-27] MEDS ORDERED: MIDAZOLAM HCL 2 MG/2 ML VIAL ONE (16:29)
--- NOTE | 2016-05-27 17:01 | PD.RAD ---
Post Procedure Progress Note Pre Procedure Diagnosis: (1) Protein calorie malnutrition Post Procedure Diagnosis: (1) Protein calorie malnutrition Procedure Date: May 27, 2016 Supervising Radiologist: Gildardo Boo Plan of Activity Patient to Unit: Nursing Unit Patient Condition: Poor Additional Comments: Patient evaluated with fluoroscopy. The patient is post partial gastrectomy. the residual stomach is up under the rib cage and could not be accessed under fluoroscopy. Patient is not a candidate for a fluoroscopic guide g tube placement. No punctures or incision made. See PACS Report for procedural detail/treatment Gildardo Boo MD May 27, 2016 17:01
[2016-05-27] MEDS: CLINIMIX E 5/25 2000 mL- >42 mls/hr IV-CENTRAL SCH ×3 (20:05)
[2016-05-27] MEDS: ALBUMIN HUMAN 25% 25 GM/100 ML BAGP IV SCH (20:06)
[2016-05-28] VITALS (12 sets, daily range): BP systolic 113–134; BP diastolic 64–73; PULSE 98–108; RESP 22–32; TEMP 97.5–98.5; O2SAT 96–100
[2016-05-28] MEDS: METOPROLOL TARTRATE 5 MG/5 ML VIAL IV PUSH SCH ×4 (02:21→19:52)
[2016-05-28] MEDS: RESP: ALBUTEROL 2.5 MG/IPRATROPIUM 0.5 MG NEB (SCH) NEB ×6 (03:35→23:51)
[2016-05-28] MEDS: INSULIN NovoLIN REGULAR SUPPLEMENTAL SCALE SQ SCH ×6 (04:00→20:00)
[2016-05-28 04:28] LABS: AUTOMATED NEUTROPHIL # 7.1 TH/MM3 (1.8-7.7); BASOPHIL % 0.1 % (0.0-2.0); EOSINOPHIL # 0.1 TH/MM3 (0-0.4); EOSINOPHIL % 1.2 % (0.0-4.0); HEMATOCRIT 24.8 % (39.0-51.0); HEMO FLAGS DIFF FINAL; LYMPH % 5.7 % (9.0-44.0); LYMPHOCYTE # 0.5 TH/MM3 (1.0-4.8); MEAN CORPUSCULAR HEMOGLOBIN 31.1 PG (27.0-34.0); MEAN CORPUSCULAR HGB CONC 32.4 % (32.0-36.0); MONO % 10.3 % (0.0-8.0); NEUT % 82.7 % (16.0-70.0); PLATELET COUNT 135 TH/MM3 (150-450); RED BLOOD COUNT 2.59 MIL/MM3 (4.50-5.90); RED CELL DISTRIBUTION WIDTH 15.1 % (11.6-17.2); WHITE BLOOD COUNT 8.6 TH/MM3 (4.0-11.0)
[2016-05-28] MEDS: LEVOTHYROXINE SODIUM 100 MCG VIAL IV PUSH SCH (05:48)
[2016-05-28] MEDS: DOCUSATE SODIUM 100 MG CAP PO SCH (06:30)
[2016-05-28 06:44] LABS: ALKALINE PHOSPHATASE 51 U/L (45-117); ALT (GPT) 14 U/L (12-78); ANION GAP 9 MEQ/L (5-15); AST (GOT) 13 U/L (15-37); BICARBONATE 26.3 MEQ/L (21.0-32.0); BLOOD UREA NITROGEN 40 MG/DL (7-18); CHLORIDE 109 MEQ/L (98-107); GLOMERULAR FILTRATION RATE 36 ML/MIN (>89); SODIUM (NA) 144 MEQ/L (136-145); TOTAL BILIRUBIN ADULT 0.9 MG/DL (0.2-1.0)
--- NOTE | 2016-05-28 08:16 | RADRPT ---
EXAM DATE/TIME: 05/27/2016 16:25 CORRECTION Corrected on: June 03, 2016; CORRECTION: Per radiologist remove tech note section does not apply to consult [facility] COMPARISON : INDICATIONS : Patient presents with obstruction in need of gastrostomy tube placement for nutrition. PAST MEDICAL HISTORY : 1. Hypertension. 2. AFIB 3. Head and neck cancer 4. CHF 5. PUD 6. Hyperlipidemia PAST SURGICAL HISTORY : 1. Tracheostomy 2. Head and neck surgery for cancer ALLERGIES: 1. Iodinaetd contrast MEDICATIONS: 1. 0.5 versed I.V. mg 2. 25 fentanyl I.V. ug ASSESSMENT: The patient was placed on the fluoroscopy table. The patient was unable to lie flat without mild sarika tion. A nasogastric tube was advanced from the nose down into the patient's remaining stomach. The re sidual stomach was inflated with a small amount of room air. The overall amount of stomach which kat ined is quite small. This is beneath the rib cage. There is no window for placement of a percutaneous gastrostomy tube. Gildardo Boo MD on May 28, 2016 at 8:12 Board Certified Radiologist. This report was verified electronically. DR Vines on June 03, 2016 at 11:05 Board Certified Radiologist. This report was verified electronically.
[2016-05-28] MEDS: METOPROLOL TARTRATE 25 MG TAB PO SCH (09:00)
[2016-05-28] MEDS: CHOLECALCIFEROL (VIT D3) 1000 UNIT TAB PO SCH (09:00)
[2016-05-28] MEDS: ASPIRIN EC 81 MG TABEC PO SCH (09:00)
[2016-05-28] MEDS: BISACODYL 10 MG SUPP RECTAL SCH ×2 (09:00)
[2016-05-28] MEDS: ALBUMIN HUMAN 25% 25 GM/100 ML BAGP IV SCH ×2 (09:06→19:53)
[2016-05-28] MEDS: MORPHINE SULFATE 4 MG/ML INJ IV PRN (09:12)
[2016-05-28] MEDS: cefTRIAXone INJ 2,000 MG in SODIUM CHLORIDE 0.9% INJ 100 ML IV SCH (09:21)
[2016-05-28] MEDS: ENOXAPARIN SODIUM 40 MG/0.4 ML SYRINGE SQ SCH (09:39)
[2016-05-28] MEDS: SODIUM CHLORIDE 0.9% FLUSH 5 ML FLUSH FLUSH SCH (09:44)
[2016-05-28] MEDS: INSULIN DETEMIR 100 UNITS/ML VIAL SQ SCH ×2 (10:05→20:06)
--- NOTE | 2016-05-28 11:54 | PD.CAR.PN ---
CVT Progress Note Subjective/Hospital Course: Due to anatomic considerations and the placement of a percutaneous feeding jejunostomy was not possible and because off his esophageal stricture patient cannot have a gastrostomy placed for GI cannot access the gastric remnant In order to feed patient adequately he will need an open jejunostomy and he was scheduled to have this done today Patient at this point refuses to have surgery. Please let me know if patient changes his mind regarding this procedure and I will be available Objective: Vital Signs Date Time Temp Pulse Resp B/P Pulse Ox O2 Delivery O2 Flow Rate FiO2 05/28/16 10:00 105 05/28/16 08:00 100 Trach Collar 5.00 05/28/16 08:00 105 05/28/16 08:00 98.5 103 22 132/73 100 05/28/16 07:58 98 Trach Collar 35 05/28/16 06:00 101 05/28/16 04:00 100 Trach Collar 5.00 35 05/28/16 04:00 99 05/28/16 04:00 97.8 99 24 132/70 100 05/28/16 02:00 102 05/28/16 00:00 100 Trach Collar 5.00 35 05/28/16 00:00 97.6 102 27 113/65 100 05/28/16 00:00 102 05/27/16 22:00 96 05/27/16 20:00 100 Trach Collar 5.00 35 05/27/16 20:00 98.1 104 28 132/76 100 05/27/16 20:00 104 05/27/16 19:57 98 Trach Collar 5.00 35 05/27/16 18:00 102 05/27/16 16:00 98 05/27/16 14:00 100 05/27/16 12:00 100 Trach Collar 13.00 60 05/27/16 12:00 97.6 94 22 129/70 99 05/27/16 12:00 93 Labs: Laboratory Tests Test 05/28/16 05/28/16 04:08 05:30 White Blood Count 8.6 TH/MM3 (4.0-11.0) Red Blood Count 2.59 MIL/MM3 (4.50-5.90) Hemoglobin 8.0 GM/DL (13.0-17.0) Hematocrit 24.8 % (39.0-51.0) Mean Corpuscular Volume 96.0 FL (80.0-100.0) Mean Corpuscular Hemoglobin 31.1 PG (27.0-34.0) Mean Corpuscular Hemoglobin 32.4 % Concent (32.0-36.0) Red Cell Distribution Width 15.1 % (11.6-17.2) Platelet Count 135 TH/MM3 (150-450) Mean Platelet Volume 8.5 FL (7.0-11.0) Neutrophils (%) (Auto) 82.7 % (16.0-70.0) Lymphocytes (%) (Auto) 5.7 % (9.0-44.0) Monocytes (%) (Auto) 10.3 % (0.0-8.0) Eosinophils (%) (Auto) 1.2 % (0.0-4.0) Basophils (%) (Auto) 0.1 % (0.0-2.0) Neutrophils # (Auto) 7.1 TH/MM3 (1.8-7.7) Lymphocytes # (Auto) 0.5 TH/MM3 (1.0-4.8) Monocytes # (Auto) 0.9 TH/MM3 (0-0.9) Eosinophils # (Auto) 0.1 TH/MM3 (0-0.4) Basophils # (Auto) 0.0 TH/MM3 (0-0.2) CBC Comment DIFF FINAL Differential Comment Sodium Level 144 MEQ/L (136-145) Potassium Level 4.0 MEQ/L (3.5-5.1) Chloride Level 109 MEQ/L (98-107) Carbon Dioxide Level 26.3 MEQ/L (21.0-32.0) Anion Gap 9 MEQ/L (5-15) Blood Urea Nitrogen 40 MG/DL (7-18) Creatinine 1.79 MG/DL (0.60-1.30) Estimat Glomerular Filtration 36 ML/MIN (>89) Rate Random Glucose 86 MG/DL (74-106) Calcium Level 7.7 MG/DL (8.5-10.1) Phosphorus Level 4.3 MG/DL (2.5-4.9) Magnesium Level 2.0 MG/DL (1.5-2.5) Total Bilirubin 0.9 MG/DL (0.2-1.0) Aspartate Amino Transf 13 U/L (15-37) (AST/SGOT) Alanine Aminotransferase 14 U/L (12-78) (ALT/SGPT) Alkaline Phosphatase 51 U/L (45-117) Total Protein 4.9 GM/DL (6.4-8.2) Albumin 2.7 GM/DL (3.4-5.0) Result Diagram: 05/28/16 0408 05/28/16 0530 Luisa Gonzales MD May 28, 2016 11:54
[2016-05-28] MEDS: PANTOPRAZOLE SODIUM 40 MG VIAL IV PUSH SCH (12:13)
[2016-05-28] MEDS: SODIUM CHLORIDE 0.9% FLUSH 5 ML FLUSH IVF SCH (13:45)
[2016-05-28] MEDS ORDERED: ACETAMINOPHEN 1000 MG/100 ML VIAL IV PRN (13:45)
[2016-05-28] MEDS ORDERED: SODIUM CHLORIDE 0.9% FLUSH 5 ML FLUSH IVF PRN ×2 (13:45)
--- NOTE | 2016-05-28 13:51 | HHI.CCPN ---
Subjective Remarks/Hospital Course 86-year-old white male admitted for evaluation of shortness of breath and weakness. Per medical record the patient last 2-3 days has noted increasing shortness of breath, decreased exercise tolerance, increased cough and malaise. He has not been able to eat. With each attempt to eat he gags, chokes and vomits. He has a history of head and neck cancer. He has a tracheostomy. He is feeling short of breath and having some colored sputum. He was admitted to [facility] where he was found on a floor today also hypoxic. [facility] medicine was consulted to help to manage patient's hypoxemia. 05/23: Patient with large left-sided pneumothorax. Originally pigtail catheter placed over the wound did not reinflated for a 20 [place] chest tube was placed and lungs currently inflated. Oxygen saturations currently 100 percent. 05/24: Increasing pneumothorax on chest x-ray this a.m., atrium change no saturations improved to 100%. Requesting tube feeds however unable to provide due to unstable medical status/esophageal stricture. IR will reattempt on Thursday. No bowel movement. 05/25/16: Currently afebrile. Pigtail catheter "fell out" yesterday. Lungs still inflated with small left hydropneumothorax. Appears comfortable at bedside. Remains tachycardic. Pain controlled chest tube site with as needed narcotics. One BM. 05/26/16: Afebrile. No pneumothorax on chest x-ray this AM. Remains on high flow oxygen through stoma. Worsening chest x-ray. Appears comfortable. Tolerating TPN. No bowel movement yesterday. 05/27/16: Afebrile. Plan for PEG tube placement today with IR. Decreased urine output noted. Diuretics have been held. Denies chest pain or shortness of breath currently. SUBJECTIVE: 05/28/16: Afebrile. Patient unable to have PEG tube placed by IR yesterday secondary to partial gastrectomy. Plan for jejunostomy tube. Per family request and patient request we'll consult palliative as patient wants to go home. Objective Vital Signs Date Time Temp Pulse Resp B/P Pulse Ox O2 Delivery O2 Flow Rate FiO2 05/28/16 12:00 Room Air 05/28/16 12:00 97.5 108 32 134/64 96 05/28/16 08:00 5.00 05/28/16 07:58 35 Intake and Output 05/27/16 05/27/16 05/28/16 08:00 16:00 00:00 Intake Total 496 ml 1355 ml 216 ml Output Total 250 ml 835 ml 650 ml Balance 246 ml 520 ml -434 ml Result Diagram: 05/28/16 0408 05/28/16 0530 Other Results Microbiology Date/Time Procedure Status Source Growth 05/27/16 11:50 Gram Stain - Final Resulted Sputum Expectorated Sputum 05/27/16 11:50 Sputum Culture Resulted Sputum Expectorated Sputum Pending Imaging Last Impressions Chest X-Ray 05/26/16 0000 Signed Impressions: Service Date/Time: Thursday, May 26, 2016 05:00 - CONCLUSION: 1. No pneumothorax. 2. Progression in the bilateral pulmonary infiltrates. 3. Stable bilateral pleural effusions. Earnest Willis Jr., MD Abdomen X-Ray 05/26/16 0000 Signed Impressions: Service Date/Time: Thursday, May 26, 2016 15:44 - CONCLUSION: Benign-appearing abdomen. No obstruction or perceptible ileus. Saravanan Maloney MD Head CT 05/22/16 0000 Signed Impressions: Service Date/Time: April 21:22 - CONCLUSION: No bleed or other acute intracranial abnormality. Saravanan Maloney MD Modified Barium Swallow 05/21/16 0000 Signed Impressions: Service Date/Time: Saturday, May 21, 2016 10:25 - CONCLUSION: Postsurgical deformity of the cervical esophagus without evidence of penetration or aspiration as described. Please see speech pathology report Anastacio Young MD Objective Remarks GENERAL: 86-year-old male, critically ill and cachectic lying in bed in no acute distress SKIN: Warm and dry.. Multiple ecchymosis bilateral upper extremities HEAD: Normocephalic. EYES: No scleral icterus. No injection or drainage. NECK: Laryngeal TEP in place without signs of infection or inflammation. No JVD or lymphadenopathy. CARDIOVASCULAR: Tachycardic, irregular. S1, S2 no S4. Without M/C/G/R RESPIRATORY: Breath sounds decreased in the left upper lobe.. Few crackles appreciated bilateral lower lobes. Left-sided 20 [place] chest tube intact GASTROINTESTINAL: Abdomen cachectic, scaphoid and non-tender MUSCULOSKELETAL: No significant peripheral edema. BACK: Nontender without obvious deformity. No CVA tenderness. Date of Insertion: May 24, 2016 Line: PICC Side: Right Location: Antecubital A/P Assessment and Plan Neuro/Psych: Depression/anxiety EtOH use History bilateral cataracts Chronic dizziness Acetaminophen for fever [place]/as needed morphine for pain management Patient on meclizine 12.5 mg 3 times a day as needed for dizziness at home. This has been held currently. Resume when clinically indicated CV: Atrial fibrillation Hypertension Dyslipidemia Grade 1 diastolic heart failure Currently on metoprolol 25 mg by mouth twice a day for blood pressure/A. fib controlled rate control Switched to Lopressor 5 IV every 6 hours while nothing by mouth At home on lisinopril 20 mg by mouth daily for hypertension. 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 Small bilateral pleural effusions. Repeat in a.m. #20 [place] Chest tubes -20 cmH2O. 560 cc SS output Gentle diuresis with Lasix 40 IV twice a day discontinued secondary to increased creatinine GI: Severe protein calorie malnutrition Esophageal stricture with failed esophageal dilatation attempt this admission with 10/11 [place] dilators Gastroesophageal reflux disease Plan for J tube when stable. Patient currently discussing with family Currently nothing by mouth Started TPN 05/24 Patient is on Protonix 40 mg IV daily. Prilosec 20 mg by mouth daily home Glycerin suppository bowel regimen : Arce will be placed if indicated for accurate I's and O's in a critically ill patient Endo: Hypothyroidism Diabetes mellitus Continue with Levoxyl 100 g by mouth daily Change to 50 g IV daily while nothing by mouth. TSH 10.4 Sliding scale insulin in order to maintain euglycemia. Low regimen every 6 hours Levemir 5 units twice a day. 8 units insulin sliding scale past 24 hours. Renal: Creatinine currently within normal limits. Monitor urine output carefully. Heme: Normocytic anemia Follow CBC/CMP daily ID: Proteus/Enterobacter pneumonia Day #8 Rocephin 2 g IV 24 hours. Pertinent cultures 05/20 - blood cultures 2 - no growth 05/20 - sputum - Proteus [place]/Enterobacter aeruginosa is pansensitive 05/21 - blood cultures 2 -no growth to date 05/27 - sputum --pending FEN: Hypokalemia - resolved Replace per ICU electrolyte protocol. MSK: Severe debilitation On vitamin D 3 2000 units daily. Is currently on hold. Resume when clinically indicated PT evaluate and treat Access - Utilize right upper extremity PICC line day #5 Prophylaxis - GI - Protonix - DVT - SCD/Lovenox Critical Care: The total critical care time was 35 minutes. Time to perform other separately billable procedures was not included in the critical care time. Jose Stafford MD May 28, 2016 13:51
[2016-05-28] MEDS ORDERED: SODIUM CHLOR 0.9% 1000 ML INJ 1,000 ML IV ONE (14:00)
[2016-05-28] MEDS ORDERED: MINERAL OIL ENEMA 118 ML BTL RECTAL ONE (15:00)
[2016-05-28] MEDS ORDERED: METHYLNALTREXONE BROMIDE 12 MG/0.6 ML VIAL SQ ONE (15:00)
--- NOTE | 2016-05-28 15:43 | RADRPT ---
EXAM DATE/TIME: 05/28/2016 14:01 [place] COMPARISON: CHEST SINGLE AP, May 26, 2016, 5:00. ABDOMEN KUB ONLY, May 26, 2016, 15:44. INDICATIONS : F/U Pneumothorax MEDICAL HISTORY : None. SURGICAL HISTORY : None. ENCOUNTER: Subsequent ACUITY: 3 days PAIN SCORE: 0/10 LOCATION: chest FINDINGS: Number is enlarged. There is a PICC which enters from the right arm. The catheter appears in satisfac tory position. There is a chest tube in place on the left. No significant residual pneumothorax is id entified. There is a small pleural effusion at the right base. There are chronic interstitial changes throughou t both lungs. CONCLUSION: 1. No significant residual pneumothorax identified. 2. Right basilar effusion. Gildardo Boo MD on May 28, 2016 at 15:39 Board Certified Radiologist. This report was verified electronically.
[2016-05-28] MEDS ORDERED: MORPHINE SULFATE 4 MG/ML INJ IV PUSH PRN (15:45)
[2016-05-28] MEDS: MORPHINE SULFATE 4 MG/ML INJ IV PUSH PRN ×2 (16:44→23:14)
--- NOTE | 2016-05-28 19:09 | PD.CONS ---
Consult Service Palliative Care . Consult Requested By Dr. Stafford . Primary Care Physician Vamshi Wade M.D. . Reason for Consultation a. To assist with evaluation and management of symptoms including: shortness of breath, back pain, malnutrition. b. To assist medical decision maker(s) with: better understanding of current medical conditions; weighing benefits/burdens of medical treatment options; making medical treatment decisions. . (LIBBY PAL) HPI History of Present Illness Mr. Cardoza is an 86-year-old male with past medical history of hypertension, atrial fibrillation, congestive heart failure, EF 30%, peptic ulcer disease, remote history of laryngeal cancer and recent history of tongue cancer. Patient had remote history of laryngeal cancer status post total laryngectomy, chemotherapy and radiation therapy. 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 He has had tracheostomy it appears for at least one year and has required multiple dilation's due to stoma being too narrow. He previously been offered feeding tube but declined as he was still able to eat and take medications by mouth. Patient presented to [facility] emergency department on 05/21/16 via [facility] for evaluation of worsening shortness of breath, dizziness and weakness. Notes indicate that he had become weaker in the week prior company had not had anything to eat or drink during that time. He attempted to drink Ensure which cause nausea and vomiting. He reported that he had not been able to walk more than 15 steps in the days prior to presentation. On 05/22/16 patient found to be hypoxic transferred to ICU for management of hypoxemia. Patient was found to have a left large pneumothorax, chest tube was placed with improvement of oxygen saturation's. Chest tube remains in place. Gastroenterology was consulted for possible tube placement. Multiple attempts at PEG tube placement have been unsuccessful by gastroenterology and interventional radiology. Patient currently on TPN. General surgery has been consulted for possible open J-tube placement, surgery was supposed to be performed 05/28/16 however patient was refusing to have surgery earlier today. Palliative care was consulted to assist with further clarification of treatment goals. . Function/Cognitive Trajectory Patient indicates that he was having trouble getting up at around prior to admission, indicates he was unable to eat or drink, bedbound. . (LIBBY PAL) Review of Systems Constitutional: COMPLAINS OF: Fatigue, Weight loss (patient unable to quantify he reports significant weight loss over a prolonged period of time), Change in appetite (decreased), Generalized weakness Respiratory: COMPLAINS OF: Shortness of breath Cardiovascular: COMPLAINS OF: Dyspnea on Exertion Gastrointestinal: COMPLAINS OF: Constipation, Nausea, Vomiting (prior to admission) Musculoskeletal: COMPLAINS OF: Back pain Integumentary: COMPLAINS OF: Abnormal pigmentation (significant bruising, skin tears bilateral upper extremities) Hematologic/Lymphatics: COMPLAINS OF: Bruising Neurologic: COMPLAINS OF: Speech Problems (communicates via writing on dry erase board), Poor Balance (LIBBY PAL) Past Family Social History Coded Allergies: Contrast Media (Verified Allergy, Severe, IV IODINE CAUSED HIVES, 02/27/16) Iodine (Verified Allergy, Severe, HIVES, 02/27/16) *MDRO Multi-Drug Resistant Organism (Verified Adverse Reaction, Unknown, ) MDR Pseudomonas (sputum) - 05/27/16 Past Medical History Laryngeal cancer status post total laryngectomy, chemotherapy and radiation therapy. Tongue cancer, 2nd primary cancer status post transoral laser resection Trach placement for past one year. Hypertension Atrial fibrillation Hyperlipidemia CHFEF of 35-40% per echo in August 2015. Grade 1 diastolic heart failure as well. PUD hyperlipidemia hypothyroidism dizziness . Past Surgical History Tracheostomy total laryngectomy transoral laser resection of tumor at the right base of tongue bilateral cataract surgery right inguinal hernia repair . Reported Medications Reported Meds & Active Scripts Active Reported Lasix (Furosemide) 20 Mg Tab 20 Mg PO DAILY Aspirin Adult Low Strength (Aspirin) 81 Mg Tabdr 81 Mg PO DAILY Omeprazole 20 Mg Tab 20 Mg PO DAILY Metoprolol Tartrate 50 Mg Tab 25 Mg PO BID Levothyroxine (Levothyroxine Sodium) 100 Mcg Tab 100 Mcg PO DAILY Vitamin D3 (Cholecalciferol) 1,000 Unit Tab 1,000 Units PO DAILY Lisinopril 40 Mg Tab 20 Mg PO BID Meclizine (Meclizine HCl) 12.5 Mg Tab 12.5 Mg PO TID PRN . Current Medications Medications (Trade) Dose Ordered Sig/Yoel Route Start Time Stop Time Status Last Admin (Vitamin D3) 1,000 units DAILY PO 05/21/16 09:00 05/21/16 09:32 (Synthroid) 100 mcg DAILY@06 PO 05/21/16 06:00 Hold 05/22/16 06:09 (Lovenox Inj) 40 mg Q24H SQ 05/21/16 08:00 05/28/16 09:39 (Synthroid Inj) 50 mcg DAILY@06 IV PUSH 05/25/16 06:00 05/28/16 05:48 (Lopressor Inj) 5 mg Q6H IV PUSH 05/24/16 08:30 05/28/16 13:27 (NS Flush) See Protocol DAILY IVF 05/25/16 09:00 05/27/16 09:04 (NS Flush) See Protocol UNSCH PRN IVF 05/24/16 11:00 05/25/16 12:16 (Heparin Central Flush) See Protocol DAILY IVF 05/25/16 09:00 05/27/16 10:06 (Heparin Central Flush) See Protocol UNSCH PRN IVF 05/24/16 11:00 05/25/16 12:16 (NS Flush) See Protocol UNSCH PRN IVF 05/24/16 11:00 Insulin Detemir 5 units 5 units Q12HR SQ 05/24/16 21:00 05/28/16 10:05 Multivitamins 10 ml/Folic Acid 1 mg/Amino Acids/ Electrolytes/ Dextrose 2,010.2 ml @ 50 mls/hr Q24H IV-CENTRAL 05/24/16 20:00 05/27/16 20:05 (Liposyn Iii 20% Inj) 250 ml @ 31.25 mls/ hr SuWe@20 IV-CENTRAL 05/25/16 20:00 05/25/16 20:04 (D50w (Vial) Inj) 25 ml UNSCH PRN IV PUSH 05/24/16 18:15 05/27/16 09:09 (Glucagon Inj) 1 mg UNSCH PRN OTHER 05/24/16 18:15 (NovoLIN R SUPPLEMENTAL SCALE) 1 Q4HR SQ 05/24/16 20:00 05/26/16 09:12 (Protonix Inj) 40 mg Q24H IV PUSH 05/25/16 12:00 05/28/16 12:13 (Dulcolax Supp) 10 mg DAILY RECTAL 05/26/16 09:00 05/27/16 09:01 Glycerin 2 gm 2 gm BID PRN RECTAL 05/26/16 08:00 (Rocephin Inj/NS Inj) 100 ml @ 200 mls/hr Q24H IV 05/26/16 08:00 05/28/16 09:21 (Albumin 25% Inj) 25 gm Q12H IV 05/27/16 20:00 05/28/16 20:01 05/28/16 09:06 (Ofirmev Inj) 650 mg Q6HR PRN IV 05/28/16 13:45 (NS Flush) DAILY IVF 05/28/16 13:45 (Heparin Central Flush) DAILY IVF 05/28/16 13:45 (NS Flush) UNSCH PRN IVF 05/28/16 13:45 (Heparin Central Flush) UNSCH PRN IVF 05/28/16 13:45 (NS Flush) UNSCH PRN IVF 05/28/16 13:45 (Morphine Inj) 2 mg Q3H PRN IV PUSH 05/28/16 15:45 (Morphine Inj) 4 mg Q3H PRN IV PUSH 05/28/16 15:45 05/28/16 16:44 . Family History Denies any family history of any medical conditions Substance Use Tobacco: former smoker. Alcohol: history of heavy alcohol use, notes indicate he drinks daily still. Prescription med abuse: none. Illicits: none. . Psychosocial History . Has been with his significant other, Roselia for 35 years. . Spiritual/Cultural Factors [place]. . (LIBBY PAL) Living Will: Copy in medical record (completed during today's visit) Health Care Surrogate: Copy in medical record Date completed: 05/28/16 Health Care Surrogate(s): Completed living will and Designated Roselia Wynn as healthcare surrogate. . Documented care wishes: Standard living will stating that if he is a terminal condition, end-stage condition or is in a persistent vegetative state that he would want life- prolonging procedures withheld or withdrawn. He indicates that for now he would desire FULL CODE. Though he indicates he would NOT want to be kept alive by machines and would want Roselia to "pull the plug." . Today's verbally stated goals: Desires continued aggressive care for now, FULL CODE and Jairo tube placement. Hopes to go home within the next 72 hours. Unclear if his goals are hospice appropriate at this time. . Family/friends goals: No family at bedside during today's visit. Ethical and Legal Issues Patient is currently capacitated to make his own health care decisions. He has designated his significant other, Roselia Maya as healthcare surrogate should he become incapacitated. Standard living will completed during today's visit, original left in patient's room, copy on chart and sent to HIM to be scanned into EMR. . (LIBBY PAL) Physical Exam Vital Signs Date Time Temp Pulse Resp B/P Pulse Ox O2 Delivery O2 Flow Rate FiO2 05/28/16 16:00 96 Trach Collar 5.00 05/28/16 12:00 Room Air 05/28/16 12:00 97.5 108 32 134/64 96 05/28/16 10:00 105 05/28/16 08:00 100 Trach Collar 5.00 05/28/16 08:00 105 05/28/16 08:00 98.5 103 22 132/73 100 05/28/16 07:58 98 Trach Collar 35 05/28/16 06:00 101 05/28/16 04:00 100 Trach Collar 5.00 35 05/28/16 04:00 99 05/28/16 04:00 97.8 99 24 132/70 100 05/28/16 02:00 102 05/28/16 00:00 100 Trach Collar 5.00 35 05/28/16 00:00 97.6 102 27 113/65 100 05/28/16 00:00 102 05/27/16 22:00 96 05/27/16 20:00 100 Trach Collar 5.00 35 05/27/16 20:00 98.1 104 28 132/76 100 05/27/16 20:00 104 05/27/16 19:57 98 Trach Collar 5.00 35 05/27/16 05/28/16 19:00 07:00 Intake Total 1355 ml 768 ml Output Total 835 ml 1250 ml Balance 520 ml -482 ml IV Total 580 ml 96 ml TPN/PPN 675 ml 572 ml Albumin 100 ml 100 ml Output Urine Total 675 ml 850 ml Chest Tube Drainage Total 160 ml 400 ml # Bowel Movements 0 0 Exam CONSTITUTIONAL/GENERAL: This is severely malnourished, cachectic man, in no apparent distress. TUBES/LINES/DRAINS: tracheostomy with oxygen via t-piece, PIV, condom calf, SCD' s. SKIN: No jaundice, rashes, or lesions. Ecchymoses on upper extremities. Multiple skin tears with dressings on bilateral upper extremities. Skin temperature appropriate. Not diaphoretic. HEAD: Atraumatic. Normocephalic. EYES: Pupils equal and round and reactive. Extraocular motions intact. No scleral icterus. No injection or drainage. Fundi not examined. ENT: Hearing grossly normal. Nose without bleeding or purulent drainage. Throat without visible erythema, exudates, masses, or lesions. NECK: Tracheostomy with O2 via t-piece. CARDIOVASCULAR: tachycardic, irregular without murmurs, gallops, or rubs. No JVD. Peripheral pulses symmetric. RESPIRATORY/CHEST: Symmetric, unlabored respirations. Crackles bilateral lower. Breath sounds decreased left. Left chest tube in place. GASTROINTESTINAL: Abdomen soft, scaphoid, non-tender. No guarding. Bowel sounds hypoactive. GENITOURINARY: Without palpable bladder distension. Condom catheter in place. MUSCULOSKELETAL: Extremities without clubbing, cyanosis, or edema. No mottling or clubbing. LYMPHATICS: No palpable cervical or supraclavicular adenopathy. NEUROLOGICAL: Awake and alert. Communicates via writing on dry erase board. Follows commands. Cognitively sharp. Moves all extremities. PSYCHIATRIC: No obvious anxiety/depression. no apparent hallucinations or other psychotic thought process. . (LIBBY PALP-Erika) Diagnostic Tests Laboratory Laboratory Tests Test 05/26/16 05/27/16 05/28/16 05/28/16 04:00 05:00 04:08 05:30 White Blood Count 10.9 TH/MM3 9.8 TH/MM3 8.6 TH/MM3 (4.0-11.0) (4.0-11.0) (4.0-11.0) Red Blood Count 2.88 MIL/MM3 2.87 MIL/MM3 2.59 MIL/MM3 (4.50-5.90) (4.50-5.90) (4.50-5.90) Hemoglobin 9.1 GM/DL 9.0 GM/DL 8.0 GM/DL (13.0-17.0) (13.0-17.0) (13.0-17.0) Hematocrit 25.9 % 26.2 % 24.8 % (39.0-51.0) (39.0-51.0) (39.0-51.0) Mean Corpuscular Volume 90.0 FL 91.3 FL 96.0 FL (80.0-100.0) (80.0-100.0) (80.0-100.0) Mean Corpuscular Hemoglobin 31.8 PG 31.2 PG 31.1 PG (27.0-34.0) (27.0-34.0) (27.0-34.0) Mean Corpuscular Hemoglobin 35.3 % 34.2 % 32.4 % Concent (32.0-36.0) (32.0-36.0) (32.0-36.0) Red Cell Distribution Width 14.8 % 14.8 % 15.1 % (11.6-17.2) (11.6-17.2) (11.6-17.2) Platelet Count 116 TH/MM3 130 TH/MM3 135 TH/MM3 (150-450) (150-450) (150-450) Mean Platelet Volume 8.3 FL 8.5 FL 8.5 FL (7.0-11.0) (7.0-11.0) (7.0-11.0) Neutrophils (%) (Auto) 91.4 % 84.6 % 82.7 % (16.0-70.0) (16.0-70.0) (16.0-70.0) Lymphocytes (%) (Auto) 3.7 % 4.8 % 5.7 % (9.0-44.0) (9.0-44.0) (9.0-44.0) Monocytes (%) (Auto) 4.0 % (0.0-8.0) 9.5 % (0.0-8.0) 10.3 % (0.0-8.0) Eosinophils (%) (Auto) 0.3 % (0.0-4.0) 0.8 % (0.0-4.0) 1.2 % (0.0-4.0) Basophils (%) (Auto) 0.6 % (0.0-2.0) 0.3 % (0.0-2.0) 0.1 % (0.0-2.0) Neutrophils # (Auto) 10.0 TH/MM3 8.3 TH/MM3 7.1 TH/MM3 (1.8-7.7) (1.8-7.7) (1.8-7.7) Lymphocytes # (Auto) 0.4 TH/MM3 0.5 TH/MM3 0.5 TH/MM3 (1.0-4.8) (1.0-4.8) (1.0-4.8) Monocytes # (Auto) 0.4 TH/MM3 0.9 TH/MM3 0.9 TH/MM3 (0-0.9) (0-0.9) (0-0.9) Eosinophils # (Auto) 0.0 TH/MM3 0.1 TH/MM3 0.1 TH/MM3 (0-0.4) (0-0.4) (0-0.4) Basophils # (Auto) 0.1 TH/MM3 0.0 TH/MM3 0.0 TH/MM3 (0-0.2) (0-0.2) (0-0.2) CBC Comment AUTO DIFF DIFF FINAL DIFF FINAL Differential Comment AUTO DIFF CONFIRMED Platelet Estimate LOW (NORMAL) Platelet Morphology Comment NORMAL (NORMAL) Sodium Level 144 MEQ/L 143 MEQ/L 144 MEQ/L (136-145) (136-145) (136-145) Potassium Level 4.3 MEQ/L 4.2 MEQ/L 4.0 MEQ/L (3.5-5.1) (3.5-5.1) (3.5-5.1) Chloride Level 109 MEQ/L 108 MEQ/L 109 MEQ/L (98-107) (98-107) (98-107) Carbon Dioxide Level 26.5 MEQ/L 28.2 MEQ/L 26.3 MEQ/L (21.0-32.0) (21.0-32.0) (21.0-32.0) Anion Gap 9 MEQ/L (5-15) 7 MEQ/L (5-15) 9 MEQ/L (5-15) Blood Urea Nitrogen 19 MG/DL (7-18) 31 MG/DL (7-18) 40 MG/DL (7-18) Creatinine 1.04 MG/DL 1.56 MG/DL 1.79 MG/DL (0.60-1.30) (0.60-1.30) (0.60-1.30) Estimat Glomerular Filtration 68 ML/MIN (>89) 43 ML/MIN (>89) 36 ML/MIN (>89) Rate Random Glucose 163 MG/DL 113 MG/DL 86 MG/DL (74-106) (74-106) (74-106) Calcium Level 7.3 MG/DL 7.5 MG/DL 7.7 MG/DL (8.5-10.1) (8.5-10.1) (8.5-10.1) Protein Corrected Calcium 8.5 MG/DL (8.5-10.1) Phosphorus Level 3.7 MG/DL 4.6 MG/DL 4.3 MG/DL (2.5-4.9) (2.5-4.9) (2.5-4.9) Magnesium Level 1.6 MG/DL 2.1 MG/DL 2.0 MG/DL (1.5-2.5) (1.5-2.5) (1.5-2.5) Total Bilirubin 0.7 MG/DL 0.8 MG/DL 0.9 MG/DL (0.2-1.0) (0.2-1.0) (0.2-1.0) Aspartate Amino Transf 16 U/L (15-37) 13 U/L (15-37) 13 U/L (15-37) (AST/SGOT) Alanine Aminotransferase 15 U/L (12-78) 14 U/L (12-78) 14 U/L (12-78) (ALT/SGPT) Alkaline Phosphatase 52 U/L (45-117) 54 U/L (45-117) 51 U/L (45-117) Total Protein 4.9 GM/DL 4.8 GM/DL 4.9 GM/DL (6.4-8.2) (6.4-8.2) (6.4-8.2) Albumin 2.8 GM/DL 2.4 GM/DL 2.7 GM/DL (3.4-5.0) (3.4-5.0) (3.4-5.0) (LIBBY PAL) Result Diagram: 05/28/16 0408 05/28/16 0530 Microbiology Microbiology Date/Time Procedure Status Source Growth 05/27/16 11:50 Gram Stain - Final Resulted Sputum Expectorated Sputum 05/27/16 11:50 Sputum Culture - Preliminary Resulted Pseudomonas Species Imaging Last Impressions Chest X-Ray 05/28/16 0000 Signed Impressions: Service Date/Time: Saturday, May 28, 2016 14:01 - CONCLUSION: 1. No significant residual pneumothorax identified. 2. Right basilar effusion. Gildardo Boo MD Abdomen X-Ray 05/26/16 0000 Signed Impressions: Service Date/Time: Thursday, May 26, 2016 15:44 - CONCLUSION: Benign-appearing abdomen. No obstruction or perceptible ileus. Saravanan Maloney MD Head CT 05/22/16 0000 Signed Impressions: Service Date/Time: April 21:22 - CONCLUSION: No bleed or other acute intracranial abnormality. Saravanan Maloney MD Modified Barium Swallow 05/21/16 0000 Signed Impressions: Service Date/Time: Saturday, May 21, 2016 10:25 - CONCLUSION: Postsurgical deformity of the cervical esophagus without evidence of penetration or aspiration as described. Please see speech pathology report Anastacio Young MD Procedures * Multiple attempts at PEG tube placement unsuccessful . (LIBBY PAL) Patient/Family Conference Present at Family Conference: Met with patient at bedside. Family Conference Time (mins): 45 Family Conference Location: Bedside Issues Discussed: * Palliative care role, purpose, approach * Additional medical, psychosocial, and spiritual history * Patients general health, functional status, and cognitive changes in the months leading up to the current hospitalization * Patient/family understanding of the current medical problems * Patient/family understanding of prognosis * Patients goals of care as best understood from advance directives and/or conversations and/or values * Current medical treatment options and benefits/burdens of those options * Likely scenarios comparing ongoing aggressive care with a transition to comfort measures only * Questions answered to the best of my ability * Palliative care contact information provided (LIBBY PAL) Assessment and Plan Disease Oriented Problem List: (1) Cancer of base of tongue Comment: Status post transoral laser resection, no follow-up therapy given. (2) Dysphagia (3) Protein calorie malnutrition Comment: On TPN severe cachexia, muscle wasting, albumin 2.7 (4) Pneumothorax, left Comment: Status post left chest tube (5) Atrial fibrillation with RVR (6) History of laryngeal cancer Comment: Status post total laryngectomy, chemo and radiation Symptom Scale: (1) Dysphagia 0-10 Scale: Unable to quantify (2) Malnutrition 0-10 Scale: Unable to quantify Comment: Severe muscle wasting, cachexia, wait 54 kg, albumin 2.7, on TPN (3) Back pain 0-10 Scale: 8 (4) Shortness of breath 0-10 Scale: Unable to quantify Pertinent Non-Medical Issues Psychosocial: Lives with significant other, Roselia Wynn for 35 years. Spiritual: [place]. Legal:Patient is currently capacitated to make his own health care decisions. He has designated his significant other, Roselia Maya as healthcare surrogate should he become incapacitated. Standard living will completed during today's visit, original left in patient's room, copy on chart and sent to HIM to be scanned into EMR. Ethical issues impacting care: no known concerns at this time. . Important Contacts * Roselia Wynn, significant other/HCS: [phone] * Sanna Wynn, granddaughter: [phone] . Prognosis Mr. Cardoza is an 86-year-old male with remote history of laryngeal cancer and recent diagnosis of 2nd primary cancer at the base of the tongue status post surgical excision. He presented to the hospital with shortness of breath, severe cachexia/malnutrition currently on TPN. Overall prognosis appears poor for meaningful recovery patient appears quite debilitated. Would be hospice appropriate if goals are comfort oriented. . Code Status: Full Code Plan * Patient is currently capacitated to make his own health care decisions. He has designated his significant other, Roselia Maya as healthcare surrogate should he become incapacitated. Standard living will completed during today's visit, original left in patient's room, copy on chart and sent to HIM to be scanned into EMR. * FULL CODE. * 05/28/16: Goals: Patient desires to proceed with J- tube placement. He desires FULL CODE. Designated significant otherRoselia as healthcare surrogate should he become incapacitated. Completed living will. Agrees to continued palliative care follow-up. Will further discuss goals with patient, significant other after J-tube is placed to further clarify goals upon discharge. * SYMPTOMS: pain: patient reports back pain intermittent relieved with current medications. Will monitor. Constipation: secondary to decreased appetite, limited mobility, pain medication. Nurse preparing for enema during my visit. Severe malnutrition: severe diffuse cachexia and muscle wasting. Weight 54 kg. Currently on TPN. Multiple unsuccessful attempts for PEG tube placement. Patient desires J-tube placement. Albumin 2.7. * Palliative care number provided. * Palliative care will continue to follow throughout hospital course to assist with symptom management and clarification of treatment goals as needed. . (LIBBY PAL) Thank you for the opportunity to participate in the care of Mr. Cardoza. (LIBBY PAL) Attestation To help prompt me to consider important information that might be impacting today's encounter and assessment, information from prior notes written by myself or my colleagues may have been "brought forward" into today's note. My signature on this note, however, is an attestation that I personally performed the exam, history, and/or decision-making noted today, and, unless otherwise indicated, the interactions with patient, family, and staff as well as the review of records all occurred today. I also attest that the listed assessment and stated plan reflect my best clinical judgment today based on the combination of historical information, prior notes, and today's exam/ interactions. When time spent is documented, it refers only to time spent today by the signer, or if indicated, combined time spent today by collaborating physician/nurse practitioner. (LIBBY PAL) Collaborating MD Comments Chart reviewed. Case discussed with palliative care WEB DESIGN SPECIALIST. Above WEB DESIGN SPECIALIST note reviewed and I concur. . (Leonardo Gomez MD) LIBBY PAL May 28, 2016 19:09 Leonardo Gomez MD Jul 13, 2016 08:14
[2016-05-28] MEDS: FAT EMULSION 20% INJ 250 ML (Twice weekly over 8 hours) IV-CENTRAL SCH (19:50)
[2016-05-28] MEDS: CLINIMIX E 5/25 2000 mL- >42 mls/hr IV-CENTRAL SCH ×3 (20:06)
[2016-05-29] VITALS (14 sets, daily range): BP systolic 107–118; BP diastolic 59–67; PULSE 89–112; RESP 16–25; TEMP 97.6–98.3; O2SAT 35–99
[2016-05-29] MEDS: METOPROLOL TARTRATE 5 MG/5 ML VIAL IV PUSH SCH ×4 (02:31→21:13)
[2016-05-29 03:53] LABS: BASOPHIL % 0.1 % (0.0-2.0); EOSINOPHIL # 0.1 TH/MM3 (0-0.4); EOSINOPHIL % 1.4 % (0.0-4.0); HEMATOCRIT 24.5 % (39.0-51.0); HEMO FLAGS DIFF FINAL; LYMPH % 4.5 % (9.0-44.0); LYMPHOCYTE # 0.4 TH/MM3 (1.0-4.8); MEAN CELL VOLUME 92.4 FL (80.0-100.0); MEAN CORPUSCULAR HEMOGLOBIN 32.6 PG (27.0-34.0); MEAN CORPUSCULAR HGB CONC 35.3 % (32.0-36.0); MONO % 8.7 % (0.0-8.0); NEUT % 85.3 % (16.0-70.0); PLATELET COUNT 149 TH/MM3 (150-450); RED BLOOD COUNT 2.65 MIL/MM3 (4.50-5.90); RED CELL DISTRIBUTION WIDTH 14.7 % (11.6-17.2); WHITE BLOOD COUNT 9.4 TH/MM3 (4.0-11.0)
[2016-05-29] MEDS: RESP: ALBUTEROL 2.5 MG/IPRATROPIUM 0.5 MG NEB (SCH) NEB ×6 (03:56→23:30)
[2016-05-29] MEDS: INSULIN NovoLIN REGULAR SUPPLEMENTAL SCALE SQ SCH ×6 (04:00→20:00)
[2016-05-29 04:04] LABS: ALT (GPT) 14 U/L (12-78); ANION GAP 11 MEQ/L (5-15); AST (GOT) 16 U/L (15-37); BICARBONATE 24.8 MEQ/L (21.0-32.0); BLOOD UREA NITROGEN 47 MG/DL (7-18); CHLORIDE 108 MEQ/L (98-107); GLOMERULAR FILTRATION RATE 35 ML/MIN (>89); MAGNESIUM 1.8 MG/DL (1.5-2.5); POTASSIUM 3.8 MEQ/L (3.5-5.1); SODIUM (NA) 144 MEQ/L (136-145)
[2016-05-29 04:06] LABS: ALKALINE PHOSPHATASE 55 U/L (45-117); TOTAL BILIRUBIN ADULT 0.6 MG/DL (0.2-1.0)
[2016-05-29] MEDS: LEVOTHYROXINE SODIUM 100 MCG VIAL IV PUSH SCH (05:18)
[2016-05-29] MEDS: MORPHINE SULFATE 4 MG/ML INJ IV PUSH PRN ×4 (05:19→21:14)
[2016-05-29] MEDS: ENOXAPARIN SODIUM 40 MG/0.4 ML SYRINGE SQ SCH (07:49)
[2016-05-29] MEDS: SODIUM CHLORIDE 0.9% FLUSH 5 ML FLUSH IVF SCH (07:51)
[2016-05-29] MEDS ORDERED: LACTATED RINGER'S 1000 ML INJ 1,000 ML IV ONE (08:45)
[2016-05-29] MEDS: BISACODYL 10 MG SUPP RECTAL SCH (09:00)
[2016-05-29] MEDS ORDERED: PIPERACIL-TAZO 4.5 GM PREMIX 100 ML IV SCH (09:15)
--- NOTE | 2016-05-29 09:16 | HHI.CCPN ---
Subjective Remarks/Hospital Course 86-year-old white male admitted for evaluation of shortness of breath and weakness. Per medical record the patient last 2-3 days has noted increasing shortness of breath, decreased exercise tolerance, increased cough and malaise. He has not been able to eat. With each attempt to eat he gags, chokes and vomits. He has a history of head and neck cancer. He has a tracheostomy. He is feeling short of breath and having some colored sputum. He was admitted to [facility] where he was found on a floor today also hypoxic. [facility] medicine was consulted to help to manage patient's hypoxemia. 05/23: Patient with large left-sided pneumothorax. Originally pigtail catheter placed over the wound did not reinflated for a 20 Danish chest tube was placed and lungs currently inflated. Oxygen saturations currently 100 percent. 05/24: Increasing pneumothorax on chest x-ray this a.m., atrium change no saturations improved to 100%. Requesting tube feeds however unable to provide due to unstable medical status/esophageal stricture. IR will reattempt on Thursday. No bowel movement. 05/25/16: Currently afebrile. Pigtail catheter "fell out" yesterday. Lungs still inflated with small left hydropneumothorax. Appears comfortable at bedside. Remains tachycardic. Pain controlled chest tube site with as needed narcotics. One BM. 05/26/16: Afebrile. No pneumothorax on chest x-ray this AM. Remains on high flow oxygen through stoma. Worsening chest x-ray. Appears comfortable. Tolerating TPN. No bowel movement yesterday. 05/27/16: Afebrile. Plan for PEG tube placement today with IR. Decreased urine output noted. Diuretics have been held. Denies chest pain or shortness of breath currently. 05/28/16: Afebrile. Patient unable to have PEG tube placed by IR yesterday secondary to partial gastrectomy. Plan for jejunostomy tube. Per family request and patient request we'll consult palliative as patient wants to go home. SUBJECTIVE: 05/29/16: Afebrile. Plan for percutaneous jejunostomy tube placed today in OR. Noted patient states he wants to return home and "3 days". Still no bowel movement. Denies abdominal pain. Objective Vital Signs Date Time Temp Pulse Resp B/P Pulse Ox O2 Delivery O2 Flow Rate FiO2 05/29/16 08:13 35 Trach Collar 5.00 35 05/29/16 06:00 100 05/28/16 12:00 97.5 32 134/64 Intake and Output 05/28/16 05/28/16 05/29/16 08:00 16:00 00:00 Intake Total 552 ml Output Total 600 ml Balance -48 ml Result Diagram: 05/29/16 0326 05/29/16 0326 Other Results Microbiology Date/Time Procedure Status Source Growth 05/27/16 11:50 Gram Stain - Final Resulted Sputum Expectorated Sputum 05/27/16 11:50 Sputum Culture - Preliminary Resulted Pseudomonas Species Imaging Last Impressions Chest X-Ray 05/28/16 0000 Signed Impressions: Service Date/Time: Saturday, May 28, 2016 14:01 - CONCLUSION: 1. No significant residual pneumothorax identified. 2. Right basilar effusion. Gildardo Boo MD Abdomen X-Ray 05/26/16 0000 Signed Impressions: Service Date/Time: Thursday, May 26, 2016 15:44 - CONCLUSION: Benign-appearing abdomen. No obstruction or perceptible ileus. Saravanan Maloney MD Head CT 05/22/16 0000 Signed Impressions: Service Date/Time: April 21:22 - CONCLUSION: No bleed or other acute intracranial abnormality. Saravanan Maloney MD Modified Barium Swallow 05/21/16 0000 Signed Impressions: Service Date/Time: Saturday, May 21, 2016 10:25 - CONCLUSION: Postsurgical deformity of the cervical esophagus without evidence of penetration or aspiration as described. Please see speech pathology report Anastacio Young MD Objective Remarks GENERAL: 86-year-old male, critically ill and cachectic lying in bed in no acute distress SKIN: Warm and dry.. Multiple ecchymosis bilateral upper extremities HEAD: Normocephalic. EYES: No scleral icterus. No injection or drainage. NECK: Laryngeal TEP in place without signs of infection or inflammation. No JVD or lymphadenopathy. CARDIOVASCULAR: Tachycardic, irregular. S1, S2 no S4. Without M/C/G/R RESPIRATORY: Breath sounds decreased in the left lower lobe. Few crackles appreciated bilateral lower lobes. Left-sided 20 Danish chest tube intact GASTROINTESTINAL: Abdomen cachectic, scaphoid and non-tender. Hypoactive bowel sounds are appreciated MUSCULOSKELETAL: No significant peripheral edema. BACK: Nontender without obvious deformity. No CVA tenderness. Urinary Catheter: No Assessment to: Continue Vascular Central Line Catheter: Yes Assessment to: Continue Date of Insertion: May 24, 2016 Line: PICC Side: Right Location: Antecubital A/P Assessment and Plan Neuro/Psych: Depression/anxiety EtOH use History bilateral cataracts Chronic dizziness Acetaminophen for fever [place]/as needed morphine for pain management Patient on meclizine 12.5 mg 3 times a day as needed for dizziness at home. This has been held currently. Resume when clinically indicated CV: Atrial fibrillation Hypertension Dyslipidemia Grade 1 diastolic heart failure Currently on metoprolol 25 mg by mouth twice a day for blood pressure/A. fib controlled rate control Switched to Lopressor 5 IV every 6 hours while nothing by mouth At home on lisinopril 20 mg by mouth daily for hypertension. 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 No residual pneumothorax on chest x-ray Duo nebs every 4 hours and as needed #20 Danish Chest tubes -20 cmH2O. 200 cc SS output GI: Severe protein calorie malnutrition Esophageal stricture with failed esophageal dilatation attempt this admission with 10/11 Danish dilators Gastroesophageal reflux disease Plan for J tube when stable. Unable to Started TPN 05/24 Patient is on Protonix 40 mg IV daily. Prilosec 20 mg by mouth daily home Glycerin suppository bowel regimen : Arce will be placed if indicated for accurate I's and O's in a critically ill patient Endo: Hypothyroidism Diabetes mellitus Continue with Levoxyl 100 g by mouth daily Change to 50 g IV daily while nothing by mouth. TSH 10.4 Sliding scale insulin in order to maintain euglycemia. Low regimen every 6 hours Levemir 5 units twice a day. 6 units insulin sliding scale past 24 hours. Renal: Acute kidney injury Currently holding Lasix. Intermittent pulsing 1 L normal saline. Check urine electrolytes/eosinophils Monitor urine output carefully. Heme: Normocytic anemia Follow CBC/CMP daily ID: Proteus/Enterobacter pneumonia Pseudomonas pneumonia Day #8 Rocephin 2 g IV 24 hours be discontinued today. Start Levaquin 750 mg IV every 48 hours day #1 Pertinent cultures 05/20 - blood cultures 2 - no growth 05/20 - sputum - Proteus [place]abella/Enterobacter aeruginosa is pansensitive 05/21 - blood cultures 2 -no growth to date 05/27 - sputum --Pseudomonas FEN: Hypokalemia - resolved Replace per ICU electrolyte protocol. MSK: Severe debilitation On vitamin D 3 2000 units daily. Is currently on hold. Resume when clinically indicated PT evaluate and treat Access - Utilize right upper extremity PICC line day #6 Prophylaxis - GI - Protonix - DVT - SCD/Lovenox Critical Care: The total critical care time was 35 minutes. Time to perform other separately billable procedures was not included in the critical care time. Jose Stafford MD May 29, 2016 09:16
[2016-05-29] MEDS: CHOLECALCIFEROL (VIT D3) 1000 UNIT TAB PO SCH ×2 (09:18→09:35)
[2016-05-29] MEDS: INSULIN DETEMIR 100 UNITS/ML VIAL SQ SCH ×2 (09:32→21:00)
[2016-05-29] MEDS: LEVOFLOXACIN 750 MG PREMIX INJ 150 ML IV SCH (09:39)
--- NOTE | 2016-05-29 10:12 | PD.CAR.PN ---
CVT Progress Note Subjective/Hospital Course: Due to anatomic considerations and the placement of a percutaneous feeding jejunostomy was not possible and because off his esophageal stricture patient cannot have a gastrostomy placed for GI cannot access the gastric remnant In order to feed patient adequately he will need an open jejunostomy and he was scheduled to have this done today Patient at this point refuses to have surgery. Please let me know if patient changes his mind regarding this procedure and I will be available 05/29/16 Patient now changed his mind and wants feeding jejunostomy placed so he can go to hospice or home Patient had previous for a 5 abdominal surgeries so he may have significant adhesions and this may be difficult undertaking Have explained this to the patient and he understands Patient is emaciated and in functional decline with terminal disease We will proceed according to patient's wishes Objective: Vital Signs Date Time Temp Pulse Resp B/P Pulse Ox O2 Delivery O2 Flow Rate FiO2 05/29/16 08:13 35 Trach Collar 5.00 35 05/29/16 06:00 100 05/29/16 04:00 92 05/29/16 04:00 99 Trach Collar 5.00 35 05/29/16 02:00 100 05/29/16 00:00 98 05/29/16 00:00 100 Trach Collar 5.00 35 05/28/16 22:00 98 05/28/16 20:26 97 Trach Collar 6.00 35 05/28/16 20:00 102 05/28/16 20:00 95 Trach Collar 5.00 35 05/28/16 18:00 102 05/28/16 16:00 96 Trach Collar 5.00 05/28/16 12:00 Room Air 05/28/16 12:00 97.5 108 32 134/64 96 Labs: Laboratory Tests Test 05/29/16 03:26 White Blood Count 9.4 TH/MM3 (4.0-11.0) Red Blood Count 2.65 MIL/MM3 (4.50-5.90) Hemoglobin 8.6 GM/DL (13.0-17.0) Hematocrit 24.5 % (39.0-51.0) Mean Corpuscular Volume 92.4 FL (80.0-100.0) Mean Corpuscular Hemoglobin 32.6 PG (27.0-34.0) Mean Corpuscular Hemoglobin 35.3 % Concent (32.0-36.0) Red Cell Distribution Width 14.7 % (11.6-17.2) Platelet Count 149 TH/MM3 (150-450) Mean Platelet Volume 8.1 FL (7.0-11.0) Neutrophils (%) (Auto) 85.3 % (16.0-70.0) Lymphocytes (%) (Auto) 4.5 % (9.0-44.0) Monocytes (%) (Auto) 8.7 % (0.0-8.0) Eosinophils (%) (Auto) 1.4 % (0.0-4.0) Basophils (%) (Auto) 0.1 % (0.0-2.0) Neutrophils # (Auto) 8.0 TH/MM3 (1.8-7.7) Lymphocytes # (Auto) 0.4 TH/MM3 (1.0-4.8) Monocytes # (Auto) 0.8 TH/MM3 (0-0.9) Eosinophils # (Auto) 0.1 TH/MM3 (0-0.4) Basophils # (Auto) 0.0 TH/MM3 (0-0.2) CBC Comment DIFF FINAL Differential Comment Sodium Level 144 MEQ/L (136-145) Potassium Level 3.8 MEQ/L (3.5-5.1) Chloride Level 108 MEQ/L (98-107) Carbon Dioxide Level 24.8 MEQ/L (21.0-32.0) Anion Gap 11 MEQ/L (5-15) Blood Urea Nitrogen 47 MG/DL (7-18) Creatinine 1.84 MG/DL (0.60-1.30) Estimat Glomerular Filtration 35 ML/MIN (>89) Rate Random Glucose 101 MG/DL (74-106) Calcium Level 7.5 MG/DL (8.5-10.1) Phosphorus Level 4.1 MG/DL (2.5-4.9) Magnesium Level 1.8 MG/DL (1.5-2.5) Total Bilirubin 0.6 MG/DL (0.2-1.0) Aspartate Amino Transf 16 U/L (15-37) (AST/SGOT) Alanine Aminotransferase 14 U/L (12-78) (ALT/SGPT) Alkaline Phosphatase 55 U/L (45-117) Total Protein 4.9 GM/DL (6.4-8.2) Albumin 2.6 GM/DL (3.4-5.0) Result Diagram: 05/29/16 0326 05/29/16 0326 Luisa Gonzales MD May 29, 2016 10:12
[2016-05-29] MEDS ORDERED: LIDOCAINE 1%/EPINEPHrine 1:100,000 SOLN 20 ML VIAL ONE (10:30)
[2016-05-29] MEDS ORDERED: ETOMIDATE 20 MG/10 ML VIAL IV PUSH ONE (12:00)
[2016-05-29] MEDS: PANTOPRAZOLE SODIUM 40 MG VIAL IV PUSH SCH (12:57)
--- NOTE | 2016-05-29 13:26 | PD.CAR.PN ---
CVT Progress Note Subjective/Hospital Course: Due to anatomic considerations and the placement of a percutaneous feeding jejunostomy was not possible and because off his esophageal stricture patient cannot have a gastrostomy placed for GI cannot access the gastric remnant In order to feed patient adequately he will need an open jejunostomy and he was scheduled to have this done today Patient at this point refuses to have surgery. Please let me know if patient changes his mind regarding this procedure and I will be available 05/29/16 Patient now changed his mind and wants feeding jejunostomy placed so he can go to hospice or home Patient had previous for a 5 abdominal surgeries so he may have significant adhesions and this may be difficult undertaking Have explained this to the patient and he understands Patient is emaciated and in functional decline with terminal disease We will proceed according to patient's wishes Patient at this point had the feeding jejunostomy placed is awake alert and oriented He can be transferred to the floor at this point Objective: Vital Signs Date Time Temp Pulse Resp B/P Pulse Ox O2 Delivery O2 Flow Rate FiO2 05/29/16 13:03 16 05/29/16 12:55 97.6 92 16 107/59 96 05/29/16 10:00 89 05/29/16 08:13 35 Trach Collar 5.00 35 05/29/16 08:00 94 Trach Collar 35 05/29/16 08:00 97 05/29/16 08:00 98.3 102 17 117/67 94 05/29/16 06:00 100 05/29/16 04:00 92 05/29/16 04:00 99 Trach Collar 5.00 35 05/29/16 02:00 100 05/29/16 00:00 98 05/29/16 00:00 100 Trach Collar 5.00 35 05/28/16 22:00 98 05/28/16 20:26 97 Trach Collar 6.00 35 05/28/16 20:00 102 05/28/16 20:00 95 Trach Collar 5.00 35 05/28/16 18:00 102 05/28/16 16:00 96 Trach Collar 5.00 Labs: Laboratory Tests Test 05/29/16 05/29/16 03:26 09:55 White Blood Count 9.4 TH/MM3 (4.0-11.0) Red Blood Count 2.65 MIL/MM3 (4.50-5.90) Hemoglobin 8.6 GM/DL (13.0-17.0) Hematocrit 24.5 % (39.0-51.0) Mean Corpuscular Volume 92.4 FL (80.0-100.0) Mean Corpuscular Hemoglobin 32.6 PG (27.0-34.0) Mean Corpuscular Hemoglobin 35.3 % Concent (32.0-36.0) Red Cell Distribution Width 14.7 % (11.6-17.2) Platelet Count 149 TH/MM3 (150-450) Mean Platelet Volume 8.1 FL (7.0-11.0) Neutrophils (%) (Auto) 85.3 % (16.0-70.0) Lymphocytes (%) (Auto) 4.5 % (9.0-44.0) Monocytes (%) (Auto) 8.7 % (0.0-8.0) Eosinophils (%) (Auto) 1.4 % (0.0-4.0) Basophils (%) (Auto) 0.1 % (0.0-2.0) Neutrophils # (Auto) 8.0 TH/MM3 (1.8-7.7) Lymphocytes # (Auto) 0.4 TH/MM3 (1.0-4.8) Monocytes # (Auto) 0.8 TH/MM3 (0-0.9) Eosinophils # (Auto) 0.1 TH/MM3 (0-0.4) Basophils # (Auto) 0.0 TH/MM3 (0-0.2) CBC Comment DIFF FINAL Differential Comment Sodium Level 144 MEQ/L (136-145) Potassium Level 3.8 MEQ/L (3.5-5.1) Chloride Level 108 MEQ/L (98-107) Carbon Dioxide Level 24.8 MEQ/L (21.0-32.0) Anion Gap 11 MEQ/L (5-15) Blood Urea Nitrogen 47 MG/DL (7-18) Creatinine 1.84 MG/DL (0.60-1.30) Estimat Glomerular Filtration 35 ML/MIN (>89) Rate Random Glucose 101 MG/DL (74-106) Calcium Level 7.5 MG/DL (8.5-10.1) Phosphorus Level 4.1 MG/DL (2.5-4.9) Magnesium Level 1.8 MG/DL (1.5-2.5) Total Bilirubin 0.6 MG/DL (0.2-1.0) Aspartate Amino Transf 16 U/L (15-37) (AST/SGOT) Alanine Aminotransferase 14 U/L (12-78) (ALT/SGPT) Alkaline Phosphatase 55 U/L (45-117) Total Protein 4.9 GM/DL (6.4-8.2) Albumin 2.6 GM/DL (3.4-5.0) Blood Type A POSITIVE Antibody Screen NEGATIVE Result Diagram: 05/29/16 0326 05/29/16 0326 Luisa Gonzales MD May 29, 2016 13:26
--- NOTE | 2016-05-29 14:40 | HHI.HCPN ---
Went to see patient, in OR for J-tube placement per nursing staff. Will follow up to further clarify goals on 05/30/16. LIBBY PAL May 29, 2016 14:40
[2016-05-29] MEDS ORDERED: TAMSULOSIN HCL 0.4 MG CAP PO ONE (17:00)
--- NOTE | 2016-05-29 18:52 | MP ---
cc: LUISA MCCLURE MD DATE OF SURGERY: 05/29/2016. PREOPERATIVE DIAGNOSIS: 1. Emaciation. 2. Esophageal stricture. 3. Metastatic carcinoma of the larynx. POSTOPERATIVE DIAGNOSIS: 1. Emaciation. 2. Esophageal stricture. 3. Metastatic carcinoma of the larynx. OPERATIVE PROCEDURE PERFORMED: 1. Open feeding jejunostomy. 2. Lysis of adhesions. SURGEON: Luisa Mcclure M.D. ANESTHESIA: General. ESTIMATED BLOOD LOSS: 10 cc. DESCRIPTION OF THE PROCEDURE IN DETAIL: The patient was prepped and draped in the usual sterile fashion. A midline incision was made measuring only about 3 inches in length around the umbilicus and deepened down through the fascia to the peritoneum. The patient had very tight adhesions from previous surgeries and these were gradually taken down with Metzenbaum scissors from the anterior abdominal wall and meticulous hemostasis was assured in the process. Both sides of fascia were now freed up and the small bowel was decompressed of course due to the long period of no p.o. intake. It was run proximally and distally and then a loop of small bowel proximal was chosen. A pursestring was placed with 3-0 silk and then incision was made with the cautery. A 14-[place] feeding tube was now placed through the anterior abdominal wall left of the midline and then into the intestine. The small balloon was inflated to keep it in position. The pursestring was tied. Now a Witzel tunnel was created with 3-0 silk Lembert seromuscular stitches over this and then the small bowel was attached to the anterior abdominal wall at the point of entry of the tube with horizontal mattress 2-0 Vicryl in a triangular fashion. Additional 3-0 pop-off silks were placed to make this closure more integral. The area was irrigated with saline and then the tube was flushed and it flushed easily. The ___ was now tied to the skin with interrupted 3-0 nylon. The incision was closed with running #0 Prolene and the skin with arpita. The patient tolerated the procedure well. Luisa KIRK/ELE /1:53 PM /6:38 PM
--- NOTE | 2016-05-29 19:04 | RADRPT ---
EXAM DATE/TIME: 05/29/2016 16:34 [facility] COMPARISON: No previous studies available for comparison. INDICATIONS : Increased BUN/Creatinine. MEDICAL HISTORY : Hypercholesterolemia. Hypertension. Syncope. Atrial fibrillation. Ulcer. Neck and tongue cancer. SURGICAL HISTORY : Eye surgery. Laryngectomy. Tracheostomy. Right inguinal hernia repair. Partial gastrectomy. ENCOUNTER: Initial ACUITY: 1 day PAIN SCORE: 0/10 LOCATION: Bilateral flank MEASUREMENTS: RIGHT KIDNEY: 9.9 x 6.4 x 4.9 cm LEFT KIDNEY: 10.4 x 5.7 x 5.4 cm FINDINGS: Both kidneys have diffuse elevated parenchymal echogenicity. Mild, bilateral hydronephrosis of uncert ain etiology. Urinary bladder distended at the time of imaging, at least 1200 cc. There is a dependen t, echogenic shadowing focus within the bladder lumen suggesting a 3 cm bladder calculus. 6 mm benign cyst suspected right lower pole. No other focal renal lesions are demonstrated. CONCLUSION: 1. Distended urinary bladder of uncertain etiology but the patient would probably benefit from a Fole y placement. 2. Apparent large bladder calculus. 3. Mild bilateral hydronephrosis etiology uncertain but conceivably related to the distended urinary bladder. 4. 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 Saravanan Maloney MD on May 29, 2016 at 18:59 Board Certified Radiologist. This report was verified electronically.
[2016-05-29] MEDS: CLINIMIX E 5/25 2000 mL- >42 mls/hr IV-CENTRAL SCH ×3 (20:00)
[2016-05-30] VITALS (14 sets, daily range): BP systolic 104–128; BP diastolic 56–69; PULSE 86–102; RESP 15–26; TEMP 97.7–98.5; O2SAT 94–98
[2016-05-30] MEDS: METOPROLOL TARTRATE 5 MG/5 ML VIAL IV PUSH SCH ×2 (03:18→08:18)
[2016-05-30] MEDS: MORPHINE SULFATE 4 MG/ML INJ IV PUSH PRN ×5 (03:18→23:56)
[2016-05-30] MEDS: RESP: ALBUTEROL 2.5 MG/IPRATROPIUM 0.5 MG NEB (SCH) NEB ×3 (03:48→20:08)
[2016-05-30] MEDS: INSULIN NovoLIN REGULAR SUPPLEMENTAL SCALE SQ SCH ×5 (04:00→15:58)
[2016-05-30 05:23] LABS: AUTOMATED NEUTROPHIL # 4.6 TH/MM3 (1.8-7.7); BASOPHIL % 0.1 % (0.0-2.0); EOSINOPHIL # 0.1 TH/MM3 (0-0.4); EOSINOPHIL % 2.3 % (0.0-4.0); HEMATOCRIT 23.8 % (39.0-51.0); HEMO FLAGS DIFF FINAL; LYMPH % 6.1 % (9.0-44.0); LYMPHOCYTE # 0.3 TH/MM3 (1.0-4.8); MEAN CELL VOLUME 92.8 FL (80.0-100.0); MEAN CORPUSCULAR HEMOGLOBIN 31.2 PG (27.0-34.0); MEAN CORPUSCULAR HGB CONC 33.6 % (32.0-36.0); NEUT % 80.5 % (16.0-70.0); PLATELET COUNT 124 TH/MM3 (150-450); RED BLOOD COUNT 2.56 MIL/MM3 (4.50-5.90); RED CELL DISTRIBUTION WIDTH 14.8 % (11.6-17.2); WHITE BLOOD COUNT 5.7 TH/MM3 (4.0-11.0)
[2016-05-30 05:40] LABS: ALT (GPT) 13 U/L (12-78); ANION GAP 6 MEQ/L (5-15); AST (GOT) 12 U/L (15-37); BICARBONATE 27.1 MEQ/L (21.0-32.0); BLOOD UREA NITROGEN 42 MG/DL (7-18); CHLORIDE 112 MEQ/L (98-107); GLOMERULAR FILTRATION RATE 70 ML/MIN (>89); MAGNESIUM 1.7 MG/DL (1.5-2.5); POTASSIUM 3.6 MEQ/L (3.5-5.1); SODIUM (NA) 145 MEQ/L (136-145)
[2016-05-30 05:42] LABS: ALKALINE PHOSPHATASE 46 U/L (45-117); TOTAL BILIRUBIN ADULT 0.7 MG/DL (0.2-1.0)
--- NOTE | 2016-05-30 06:32 | RADRPT ---
EXAM DATE/TIME: 05/30/2016 05:30 [facility] COMPARISON: CHEST SINGLE AP, May 28, 2016, 14:01. INDICATIONS : Please evaluate after respiratory failure. MEDICAL HISTORY : None. SURGICAL HISTORY : None. ENCOUNTER: Subsequent ACUITY: 3 weeks PAIN SCORE: Non-responsive. LOCATION: Bilateral chest FINDINGS: PICC line catheter tip remains projected in the right atrium. Persistent consolidation in the left l ower lobe with loss of delineation of the entire left hemidiaphragm. Hazy opacity in the lower right lung characteristic of a pleural effusion is stable. Chest drainage tube on the left side remains p rojected at the left apex. There is a pneumothorax at the left apex measuring 9 mm. CONCLUSION: 9 mm left apical pneumothorax with chest tube in place. Persistent left lower lobe consolidation and moderate size right pleural effusion. Earnest Engel MD on May 30, 2016 at 6:29 Board Certified Radiologist. This report was verified electronically.
[2016-05-30] MEDS: LEVOTHYROXINE SODIUM 100 MCG VIAL IV PUSH SCH (07:50)
[2016-05-30] MEDS: ENOXAPARIN SODIUM 40 MG/0.4 ML SYRINGE SQ SCH (07:55)
[2016-05-30] MEDS: SODIUM CHLORIDE 0.9% FLUSH 5 ML FLUSH IVF SCH (07:57)
[2016-05-30] MEDS: INSULIN DETEMIR 100 UNITS/ML VIAL SQ SCH (07:57)
[2016-05-30] MEDS: BISACODYL 10 MG SUPP RECTAL SCH (08:19)
[2016-05-30] MEDS ORDERED: TAMSULOSIN HCL 0.4 MG CAP PO SCH (09:00)
[2016-05-30] MEDS ORDERED: PILL SPLITTER OTHER PRN (11:00)
--- NOTE | 2016-05-30 11:29 | PD.CAR.PN ---
CVT Progress Note Subjective/Hospital Course: Due to anatomic considerations and the placement of a percutaneous feeding jejunostomy was not possible and because off his esophageal stricture patient cannot have a gastrostomy placed for GI cannot access the gastric remnant In order to feed patient adequately he will need an open jejunostomy and he was scheduled to have this done today Patient at this point refuses to have surgery. Please let me know if patient changes his mind regarding this procedure and I will be available 05/29/16 Patient now changed his mind and wants feeding jejunostomy placed so he can go to hospice or home Patient had previous for a 5 abdominal surgeries so he may have significant adhesions and this may be difficult undertaking Have explained this to the patient and he understands Patient is emaciated and in functional decline with terminal disease We will proceed according to patient's wishes Patient at this point had the feeding jejunostomy placed is awake alert and oriented He can be transferred to the floor at this point 05/30/16 Feeding jejunostomy insertion site is nice and clean incision is dry and abdomen is soft Dressing change ordered Feeding tube can be used at this time Nothing to add to care. This patient is unfortunately terminal Objective: Vital Signs Date Time Temp Pulse Resp B/P Pulse Ox O2 Delivery O2 Flow Rate FiO2 05/30/16 10:00 100 05/30/16 09:39 96 Trach Collar 5.00 28 05/30/16 08:00 94 05/30/16 08:00 97 Trach Collar 40 05/30/16 08:00 97.9 94 20 119/58 97 05/30/16 06:00 88 05/30/16 04:00 90 05/30/16 04:00 97 Trach Collar 40 05/30/16 04:00 98.2 90 25 107/56 98 05/30/16 03:23 22 05/30/16 02:00 102 05/30/16 00:00 95 Trach Collar 40 05/30/16 00:00 98.5 102 26 104/69 98 05/30/16 00:00 102 05/29/16 22:00 96 05/29/16 20:35 99 Trach Collar 6.00 35 05/29/16 20:00 112 05/29/16 20:00 98.2 112 25 111/61 97 05/29/16 20:00 96 Trach Collar 40 05/29/16 18:00 109 05/29/16 16:00 98 Trach Collar 40 1/5/17 16:00 97.7 97 18 118/62 98 05/29/16 16:00 97 05/29/16 14:00 101 05/29/16 12:55 97.6 92 16 107/59 96 Labs: Laboratory Tests Test 05/30/16 05/30/16 04:10 04:50 White Blood Count 5.7 TH/MM3 (4.0-11.0) Red Blood Count 2.56 MIL/MM3 (4.50-5.90) Hemoglobin 8.0 GM/DL (13.0-17.0) Hematocrit 23.8 % (39.0-51.0) Mean Corpuscular Volume 92.8 FL (80.0-100.0) Mean Corpuscular Hemoglobin 31.2 PG (27.0-34.0) Mean Corpuscular Hemoglobin 33.6 % Concent (32.0-36.0) Red Cell Distribution Width 14.8 % (11.6-17.2) Platelet Count 124 TH/MM3 (150-450) Mean Platelet Volume 7.7 FL (7.0-11.0) Neutrophils (%) (Auto) 80.5 % (16.0-70.0) Lymphocytes (%) (Auto) 6.1 % (9.0-44.0) Monocytes (%) (Auto) 11.0 % (0.0-8.0) Eosinophils (%) (Auto) 2.3 % (0.0-4.0) Basophils (%) (Auto) 0.1 % (0.0-2.0) Neutrophils # (Auto) 4.6 TH/MM3 (1.8-7.7) Lymphocytes # (Auto) 0.3 TH/MM3 (1.0-4.8) Monocytes # (Auto) 0.6 TH/MM3 (0-0.9) Eosinophils # (Auto) 0.1 TH/MM3 (0-0.4) Basophils # (Auto) 0.0 TH/MM3 (0-0.2) CBC Comment DIFF FINAL Differential Comment Sodium Level 145 MEQ/L (136-145) Potassium Level 3.6 MEQ/L (3.5-5.1) Chloride Level 112 MEQ/L (98-107) Carbon Dioxide Level 27.1 MEQ/L (21.0-32.0) Anion Gap 6 MEQ/L (5-15) Blood Urea Nitrogen 42 MG/DL (7-18) Creatinine 1.01 MG/DL (0.60-1.30) Estimat Glomerular Filtration 70 ML/MIN (>89) Rate Random Glucose 128 MG/DL (74-106) Calcium Level 7.6 MG/DL (8.5-10.1) Phosphorus Level 3.2 MG/DL (2.5-4.9) Magnesium Level 1.7 MG/DL (1.5-2.5) Total Bilirubin 0.7 MG/DL (0.2-1.0) Aspartate Amino Transf 12 U/L (15-37) (AST/SGOT) Alanine Aminotransferase 13 U/L (12-78) (ALT/SGPT) Alkaline Phosphatase 46 U/L (45-117) Total Protein 4.4 GM/DL (6.4-8.2) Albumin 2.2 GM/DL (3.4-5.0) Result Diagram: 05/30/16 0410 05/30/16 0450 Luisa Gonzales MD May 30, 2016 11:29
[2016-05-30] MEDS: PANTOPRAZOLE SODIUM 40 MG VIAL IV PUSH SCH (11:30)
--- NOTE | 2016-05-30 11:43 | HHI.HCPN ---
Reason for visit a. To assist with evaluation and management of symptoms including: shortness of breath, back pain, malnutrition. b. To assist medical decision maker(s) with: better understanding of current medical conditions; weighing benefits/burdens of medical treatment options; making medical treatment decisions. . (LIBBY PAL) Subjective/Interval History Patient seen and examined in ICU. Also present Dacia Willis LCSW. No family at bedside. Discussed with nurse. Nurse reports patient has been refusing care and is very tearful today. Patient appears to remember me from prior visit, he smiles and holds my hand. Patient underwent open J-tube placement on 05/29/16. Dressing dry and intact, tube clamped. Patient had Arce catheter placed for retention. LBM recorded on 05/24/16. On TPN. Albumin 2.2. Reports pain in abdomen and back. He has had 5 doses of PRN Morphine 4mg IV in the past 24 hours. He says he has shortness of breath occasionally. On oxygen via t-piece. Left chest tube remains in place. Creatinine decreased to 1.01. Chest x-ray 9mm left apical pneumothorax with chest tube in place. Persistent left lower lobe consolidation and moderate size right pleural effusion. Attempted to speak with patient about transitioning from TPN to tube feeding. He seems open to starting until I mention the need to get his bowels moving. He tells me he wants to go home in 2 days. He is tearful and verbalizes frustration. He does not want to talk further, he says yes when asked if I can come back when GODFREY Veloz/[facility] arrives, he agrees. Requested nurse call when Roselia arrives. . Family/friend interactions Met with patient, and Sanna (I believe a granddaughter). All in agreement with comfort oriented goals with hospice support. Patient in agreement to care center placement for pain management and trasnition to getting him home. Family will need support and education on how to administer meds and tube feedings. . (LIBBY PAL) Advance Directives Living Will: Copy in medical record (completed during today's visit) Health Care Surrogate: Copy in medical record (LIBBY PAL) Advance Directive Specifics Date completed: 05/28/16 Health Care Surrogate(s): Completed living will and Designated Roselia Wynn as healthcare surrogate. . Documented care wishes: Standard living will stating that if he is a terminal condition, end-stage condition or is in a persistent vegetative state that he would want life- prolonging procedures withheld or withdrawn. He indicates that for now he would desire FULL CODE. Though he indicates he would NOT want to be kept alive by machines and would want Roselia to "pull the plug." . Significant change in goals: FULL CODE. Attempting to clarify goals, will meet with patient and So when she arrives. . (LIBBY PAL) Objective Vital Signs Date Time Temp Pulse Resp B/P Pulse Ox O2 Delivery O2 Flow Rate FiO2 05/30/16 10:00 100 05/30/16 09:39 96 Trach Collar 5.00 28 05/30/16 08:00 94 05/30/16 08:00 97 Trach Collar 40 05/30/16 08:00 97.9 94 20 119/58 97 05/30/16 06:00 88 05/30/16 04:00 90 05/30/16 04:00 97 Trach Collar 40 05/30/16 04:00 98.2 90 25 107/56 98 05/30/16 03:23 22 05/30/16 02:00 102 05/30/16 00:00 95 Trach Collar 40 05/30/16 00:00 98.5 102 26 104/69 98 05/30/16 00:00 102 05/29/16 22:00 96 05/29/16 20:35 99 Trach Collar 6.00 35 05/29/16 20:00 112 05/29/16 20:00 98.2 112 25 111/61 97 05/29/16 20:00 96 Trach Collar 40 05/29/16 18:00 109 05/29/16 16:00 98 Trach Collar 40 05/29/16 16:00 97.7 97 18 118/62 98 05/29/16 16:00 97 05/29/16 14:00 101 05/29/16 12:55 97.6 92 16 107/59 96 Intake & Output 05/30/16 05/30/16 07:00 19:00 Intake Total 1130 ml Output Total 1050 ml Balance 80 ml IV Total 321 ml TPN/PPN 809 ml Output Urine Total 1050 ml Stool Total 0 ml Chest Tube Drainage Total 0 ml Physical Exam CONSTITUTIONAL/GENERAL: This is severely malnourished, cachectic man, in no apparent distress. TUBES/LINES/DRAINS: tracheostomy with oxygen via t-piece, Right PICC, Arce calf , SCD's. SKIN: No jaundice, rashes, or lesions. Ecchymoses on upper extremities. Multiple skin tears with dressings on bilateral upper extremities. Hands cold to touch. Skin temperature appropriate. Not diaphoretic. ENT: Hearing grossly normal. Nose without bleeding or purulent drainage. Throat without visible erythema, exudates, masses, or lesions. NECK: Tracheostomy (stoma) with O2 via t-piece. CARDIOVASCULAR: tachycardic, irregular without murmurs, gallops, or rubs. No JVD. Peripheral pulses symmetric. RESPIRATORY/CHEST: Symmetric, unlabored respirations. Crackles bilateral lower. Breath sounds decreased left. Left chest tube in place. GASTROINTESTINAL: Abdomen soft, scaphoid, non-tender. No guarding. Bowel sounds hypoactive. GENITOURINARY: Without palpable bladder distension. Arce catheter in place. MUSCULOSKELETAL: Extremities without clubbing, cyanosis, or edema. No mottling or clubbing. NEUROLOGICAL: Awake and alert. Communicates via writing on dry erase board. Follows commands. Cognitively sharp. Moves all extremities. PSYCHIATRIC: Tearful today. . . (LIBBY PALP-Erika) Diagnostic Tests Laboratory Laboratory Tests Test 05/28/16 05/28/16 05/29/16 05/29/16 04:08 05:30 03:26 09:55 White Blood Count 8.6 TH/MM3 9.4 TH/MM3 (4.0-11.0) (4.0-11.0) Red Blood Count 2.59 MIL/MM3 2.65 MIL/MM3 (4.50-5.90) (4.50-5.90) Hemoglobin 8.0 GM/DL 8.6 GM/DL (13.0-17.0) (13.0-17.0) Hematocrit 24.8 % 24.5 % (39.0-51.0) (39.0-51.0) Mean Corpuscular Volume 96.0 FL 92.4 FL (80.0-100.0) (80.0-100.0) Mean Corpuscular Hemoglobin 31.1 PG 32.6 PG (27.0-34.0) (27.0-34.0) Mean Corpuscular Hemoglobin 32.4 % 35.3 % Concent (32.0-36.0) (32.0-36.0) Red Cell Distribution Width 15.1 % 14.7 % (11.6-17.2) (11.6-17.2) Platelet Count 135 TH/MM3 149 TH/MM3 (150-450) (150-450) Mean Platelet Volume 8.5 FL 8.1 FL (7.0-11.0) (7.0-11.0) Neutrophils (%) (Auto) 82.7 % 85.3 % (16.0-70.0) (16.0-70.0) Lymphocytes (%) (Auto) 5.7 % 4.5 % (9.0-44.0) (9.0-44.0) Monocytes (%) (Auto) 10.3 % 8.7 % (0.0-8.0) (0.0-8.0) Eosinophils (%) (Auto) 1.2 % (0.0-4.0) 1.4 % (0.0-4.0) Basophils (%) (Auto) 0.1 % (0.0-2.0) 0.1 % (0.0-2.0) Neutrophils # (Auto) 7.1 TH/MM3 8.0 TH/MM3 (1.8-7.7) (1.8-7.7) Lymphocytes # (Auto) 0.5 TH/MM3 0.4 TH/MM3 (1.0-4.8) (1.0-4.8) Monocytes # (Auto) 0.9 TH/MM3 0.8 TH/MM3 (0-0.9) (0-0.9) Eosinophils # (Auto) 0.1 TH/MM3 0.1 TH/MM3 (0-0.4) (0-0.4) Basophils # (Auto) 0.0 TH/MM3 0.0 TH/MM3 (0-0.2) (0-0.2) CBC Comment DIFF FINAL DIFF FINAL Differential Comment Sodium Level 144 MEQ/L 144 MEQ/L (136-145) (136-145) Potassium Level 4.0 MEQ/L 3.8 MEQ/L (3.5-5.1) (3.5-5.1) Chloride Level 109 MEQ/L 108 MEQ/L (98-107) (98-107) Carbon Dioxide Level 26.3 MEQ/L 24.8 MEQ/L (21.0-32.0) (21.0-32.0) Anion Gap 9 MEQ/L (5-15) 11 MEQ/L (5-15) Blood Urea Nitrogen 40 MG/DL (7-18) 47 MG/DL (7-18) Creatinine 1.79 MG/DL 1.84 MG/DL (0.60-1.30) (0.60-1.30) Estimat Glomerular Filtration 36 ML/MIN (>89) 35 ML/MIN (>89) Rate Random Glucose 86 MG/DL 101 MG/DL (74-106) (74-106) Calcium Level 7.7 MG/DL 7.5 MG/DL (8.5-10.1) (8.5-10.1) Phosphorus Level 4.3 MG/DL 4.1 MG/DL (2.5-4.9) (2.5-4.9) Magnesium Level 2.0 MG/DL 1.8 MG/DL (1.5-2.5) (1.5-2.5) Total Bilirubin 0.9 MG/DL 0.6 MG/DL (0.2-1.0) (0.2-1.0) Aspartate Amino Transf 13 U/L (15-37) 16 U/L (15-37) (AST/SGOT) Alanine Aminotransferase 14 U/L (12-78) 14 U/L (12-78) (ALT/SGPT) Alkaline Phosphatase 51 U/L (45-117) 55 U/L (45-117) Total Protein 4.9 GM/DL 4.9 GM/DL (6.4-8.2) (6.4-8.2) Albumin 2.7 GM/DL 2.6 GM/DL (3.4-5.0) (3.4-5.0) Blood Type A POSITIVE Antibody Screen NEGATIVE Test 05/29/16 05/30/16 05/30/16 18:10 04:10 04:50 Urine Eosinophils NONE SEEN /HPF (NONE SEEN) Urine Random Creatinine 15.9 MG/DL Urine Random Sodium 98 MEQ/L White Blood Count 5.7 TH/MM3 (4.0-11.0) Red Blood Count 2.56 MIL/MM3 (4.50-5.90) Hemoglobin 8.0 GM/DL (13.0-17.0) Hematocrit 23.8 % (39.0-51.0) Mean Corpuscular Volume 92.8 FL (80.0-100.0) Mean Corpuscular Hemoglobin 31.2 PG (27.0-34.0) Mean Corpuscular Hemoglobin 33.6 % Concent (32.0-36.0) Red Cell Distribution Width 14.8 % (11.6-17.2) Platelet Count 124 TH/MM3 (150-450) Mean Platelet Volume 7.7 FL (7.0-11.0) Neutrophils (%) (Auto) 80.5 % (16.0-70.0) Lymphocytes (%) (Auto) 6.1 % (9.0-44.0) Monocytes (%) (Auto) 11.0 % (0.0-8.0) Eosinophils (%) (Auto) 2.3 % (0.0-4.0) Basophils (%) (Auto) 0.1 % (0.0-2.0) Neutrophils # (Auto) 4.6 TH/MM3 (1.8-7.7) Lymphocytes # (Auto) 0.3 TH/MM3 (1.0-4.8) Monocytes # (Auto) 0.6 TH/MM3 (0-0.9) Eosinophils # (Auto) 0.1 TH/MM3 (0-0.4) Basophils # (Auto) 0.0 TH/MM3 (0-0.2) CBC Comment DIFF FINAL Differential Comment Sodium Level 145 MEQ/L (136-145) Potassium Level 3.6 MEQ/L (3.5-5.1) Chloride Level 112 MEQ/L (98-107) Carbon Dioxide Level 27.1 MEQ/L (21.0-32.0) Anion Gap 6 MEQ/L (5-15) Blood Urea Nitrogen 42 MG/DL (7-18) Creatinine 1.01 MG/DL (0.60-1.30) Estimat Glomerular Filtration 70 ML/MIN (>89) Rate Random Glucose 128 MG/DL (74-106) Calcium Level 7.6 MG/DL (8.5-10.1) Phosphorus Level 3.2 MG/DL (2.5-4.9) Magnesium Level 1.7 MG/DL (1.5-2.5) Total Bilirubin 0.7 MG/DL (0.2-1.0) Aspartate Amino Transf 12 U/L (15-37) (AST/SGOT) Alanine Aminotransferase 13 U/L (12-78) (ALT/SGPT) Alkaline Phosphatase 46 U/L (45-117) Total Protein 4.4 GM/DL (6.4-8.2) Albumin 2.2 GM/DL (3.4-5.0) (LIBBY PAL) Result Diagram: 05/30/16 0410 05/30/16 0450 Microbiology Microbiology Date/Time Procedure Status Source Growth 05/27/16 11:50 Gram Stain - Final Complete Sputum Expectorated Sputum 05/27/16 11:50 Sputum Culture - Final Complete Pseudomonas Aeruginosa . Imaging Last Impressions Chest X-Ray 05/30/16 0600 Signed Impressions: Service Date/Time: Monday, May 30, 2016 05:30 - CONCLUSION: 9 mm left apical pneumothorax with chest tube in place. Persistent left lower lobe consolidation and moderate size right pleural effusion. Earnest Engel MD Renal Ultrasound 05/29/16 0000 Signed Impressions: Service Date/Time: May 16:34 - CONCLUSION: 1. Distended urinary bladder of uncertain etiology but the patient would probably benefit from a Arce placement. 2. Apparent large bladder calculus. 3. Mild bilateral hydronephrosis etiology uncertain but conceivably related to the distended urinary bladder. 4. 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 Saravanan Maloney MD Abdomen X-Ray 05/26/16 0000 Signed Impressions: Service Date/Time: Thursday, May 26, 2016 15:44 - CONCLUSION: Benign-appearing abdomen. No obstruction or perceptible ileus. Saravanan Maloney MD Head CT 05/22/16 0000 Signed Impressions: Service Date/Time: April 21:22 - CONCLUSION: No bleed or other acute intracranial abnormality. Saravanan Maloney MD Modified Barium Swallow 05/21/16 0000 Signed Impressions: Service Date/Time: Saturday, May 21, 2016 10:25 - CONCLUSION: Postsurgical deformity of the cervical esophagus without evidence of penetration or aspiration as described. Please see speech pathology report Anastacio Young MD . Procedures * Multiple attempts at PEG tube placement unsuccessful . (LIBBY PAL) Assessment and Plan Disease Oriented Problem List: (1) Cancer of base of tongue Comment: Status post transoral laser resection, no follow-up therapy given. (2) Dysphagia (3) Protein calorie malnutrition Comment: On TPN severe cachexia, muscle wasting, albumin 2.7 (4) Pneumothorax, left Comment: Status post left chest tube (5) Atrial fibrillation with RVR (6) History of laryngeal cancer Comment: Status post total laryngectomy, chemo and radiation Symptom Scale: (1) Dysphagia 0-10 Scale: Unable to quantify (2) Malnutrition 0-10 Scale: Unable to quantify Comment: Severe muscle wasting, cachexia, wait 54 kg, albumin 2.2, on TPN, s/p J-tube placement. . (3) Back pain 0-10 Scale: 8 (4) Shortness of breath 0-10 Scale: Unable to quantify Pertinent Non-Medical Issues Psychosocial: Lives with significant other, Roselia Wynn for 35 years. Spiritual: [employer] [place]. Legal:Patient is currently capacitated to make his own health care decisions. He has designated his significant other, Roselia Maya as healthcare surrogate should he become incapacitated. Standard living will completed during today's visit, original left in patient's room, copy on chart and sent to HIM to be scanned into EMR. Ethical issues impacting care: no known concerns at this time. . Important Contacts * Roselia Wynn, significant other/[facility]: [phone] * Sanna Wynn, granddaughter: [phone] . Prognosis Mr. Cardoza is an 86-year-old male with remote history of laryngeal cancer and recent diagnosis of 2nd primary cancer at the base of the tongue status post surgical excision. He presented to the hospital with shortness of breath, severe cachexia/malnutrition currently on TPN. Overall prognosis appears poor for meaningful recovery patient appears quite debilitated. Would be hospice appropriate if goals are comfort oriented. . Code Status: No Code Plan * Patient is currently capacitated to make his own health care decisions. He has designated his significant other, Roselia Maya as healthcare surrogate should he become incapacitated. Standard living will completed during today's visit, original left in patient's room, copy on chart and sent to HIM to be scanned into EMR. * NO CODE. * 05/30/16: Goals: Patient frustrated and tearful today. Later met with patient, and Sanna (I believe a granddaughter). All in agreement with comfort oriented goals with hospice support with hopes to get patient home as soon as possible. Patient in agreement to care center placement for pain management and transition to getting him home as soon as possible. Family will need support and education on how to administer meds and tube feedings. * SYMPTOMS: pain: patient reports back and abdominal pain intermittent some relief with PRN Morphine. Constipation: secondary to decreased appetite, limited mobility, pain medication. LBM 05/24. Severe malnutrition: severe diffuse cachexia and muscle wasting. Weight 54 kg. Currently on TPN, weaning off. J-tube placed, ok to use per surgery. TF ordered. Albumin 2.2. Wants to start TF and continue on hospice. * Palliative care will continue to follow throughout hospital course to assist with symptom management and clarification of treatment goals as needed. . (LIBBY PAL) Attestation To help prompt me to consider important information that might be impacting today's encounter and assessment, information from prior notes written by myself or my colleagues may have been "brought forward" into today's note. My signature on this note, however, is an attestation that I personally performed the exam, history, and/or decision-making noted today, and, unless otherwise indicated, the interactions with patient, family, and staff as well as the review of records all occurred today. I also attest that the listed assessment and stated plan reflect my best clinical judgment today based on the combination of historical information, prior notes, and today's exam/ interactions. When time spent is documented, it refers only to time spent today by the signer, or if indicated, combined time spent today by collaborating physician/nurse practitioner. (LIBBY PAL) Collaborating MD Comments Chart reviewed. Case discussed with palliative care ASSISTANT CONSTRUCTION SUPERINTENDENT. Above ASSISTANT CONSTRUCTION SUPERINTENDENT note reviewed and I concur. . (Leonardo Gomez MD) LIBBY PAL-Erika May 30, 2016 11:43 Leonardo Gomez MD Jul 12, 2016 14:41
[2016-05-30] MEDS: DEXTROSE 50% IN WATER 50 ML VIAL(D50) IV PUSH PRN (11:44)
--- NOTE | 2016-05-30 12:23 | HHI.CCPN ---
Subjective Remarks/Hospital Course 86-year-old white male admitted for evaluation of shortness of breath and weakness. Per medical record the patient last 2-3 days has noted increasing shortness of breath, decreased exercise tolerance, increased cough and malaise. He has not been able to eat. With each attempt to eat he gags, chokes and vomits. He has a history of head and neck cancer. He has a tracheostomy. He is feeling short of breath and having some colored sputum. He was admitted to [facility] where he was found on a floor today also hypoxic. [facility] medicine was consulted to help to manage patient's hypoxemia. 05/23: Patient with large left-sided pneumothorax. Originally pigtail catheter placed over the wound did not reinflated for a 20 [place]i chest tube was placed and lungs currently inflated. Oxygen saturations currently 100 percent. 05/24: Increasing pneumothorax on chest x-ray this a.m., atrium change no saturations improved to 100%. Requesting tube feeds however unable to provide due to unstable medical status/esophageal stricture. IR will reattempt on Thursday. No bowel movement. 05/25/16: Currently afebrile. Pigtail catheter "fell out" yesterday. Lungs still inflated with small left hydropneumothorax. Appears comfortable at bedside. Remains tachycardic. Pain controlled chest tube site with as needed narcotics. One BM. 05/26/16: Afebrile. No pneumothorax on chest x-ray this AM. Remains on high flow oxygen through stoma. Worsening chest x-ray. Appears comfortable. Tolerating TPN. No bowel movement yesterday. 05/27/16: Afebrile. Plan for PEG tube placement today with IR. Decreased urine output noted. Diuretics have been held. Denies chest pain or shortness of breath currently. 05/28/16: Afebrile. Patient unable to have PEG tube placed by IR yesterday secondary to partial gastrectomy. Plan for jejunostomy tube. Per family request and patient request we'll consult palliative as patient wants to go home. 05/29/16: Afebrile. Plan for percutaneous jejunostomy tube placed today in OR. Noted patient states he wants to return home and "3 days". Still no bowel movement. Denies abdominal pain. SUBJECTIVE: 05/30: Status post jejunostomy tube placement without complication. At first, slight recurrence of pneumothorax on left side after clamping chest tube. Back to -20 cm water suction. Objective Vital Signs Date Time Temp Pulse Resp B/P Pulse Ox O2 Delivery O2 Flow Rate FiO2 05/30/16 11:49 16 05/30/16 10:00 100 05/30/16 09:39 96 Trach Collar 5.00 28 05/30/16 08:00 97.9 119/58 Intake and Output 05/29/16 05/29/16 05/30/16 08:00 16:00 00:00 Intake Total 658 ml 1368 ml 693 ml Output Total 300 ml 425 ml 600 ml Balance 358 ml 943 ml 93 ml Result Diagram: 05/30/16 0410 05/30/16 0450 Other Results Microbiology Date/Time Procedure Status Source Growth 05/27/16 11:50 Gram Stain - Final Complete Sputum Expectorated Sputum 05/27/16 11:50 Sputum Culture - Final Complete Pseudomonas Aeruginosa Imaging Last Impressions Chest X-Ray 05/30/16 0600 Signed Impressions: Service Date/Time: Monday, May 30, 2016 05:30 - CONCLUSION: 9 mm left apical pneumothorax with chest tube in place. Persistent left lower lobe consolidation and moderate size right pleural effusion. Earnest Engel MD Renal Ultrasound 05/29/16 0000 Signed Impressions: Service Date/Time: May 16:34 - CONCLUSION: 1. Distended urinary bladder of uncertain etiology but the patient would probably benefit from a Arce placement. 2. Apparent large bladder calculus. 3. Mild bilateral hydronephrosis etiology uncertain but conceivably related to the distended urinary bladder. 4. 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 Saravanan Maloney MD Abdomen X-Ray 05/26/16 0000 Signed Impressions: Service Date/Time: Thursday, May 26, 2016 15:44 - CONCLUSION: Benign-appearing abdomen. No obstruction or perceptible ileus. Saravanan Maloney MD Head CT 05/22/16 0000 Signed Impressions: Service Date/Time: April 21:22 - CONCLUSION: No bleed or other acute intracranial abnormality. Saravanan Maloney MD Modified Barium Swallow 05/21/16 0000 Signed Impressions: Service Date/Time: Wednesday, May 21, 2016 10:25 - CONCLUSION: Postsurgical deformity of the cervical esophagus without evidence of penetration or aspiration as described. Please see speech pathology report Anastacio Young MD Objective Remarks GENERAL: 86-year-old male, critically ill and cachectic lying in bed in no acute distress SKIN: Warm and dry.. Multiple ecchymosis bilateral upper extremities HEAD: Normocephalic. EYES: No scleral icterus. No injection or drainage. NECK: Laryngeal TEP in place without signs of infection or inflammation. No JVD or lymphadenopathy. CARDIOVASCULAR: Tachycardic, irregular. S1, S2 no S4. Without M/C/G/R RESPIRATORY: Breath sounds decreased in the left lower lobe. Few crackles appreciated bilateral lower lobes. Left-sided 20 Kuwaiti chest tube intact GASTROINTESTINAL: Abdomen cachectic, scaphoid and non-tender. Hypoactive bowel sounds are appreciated. Jejunostomy site clean dry and intact MUSCULOSKELETAL: No significant peripheral edema. BACK: Nontender without obvious deformity. No CVA tenderness. Date of Insertion: May 24, 2016 Line: PICC Side: Right Location: Antecubital A/P Assessment and Plan Neuro/Psych: Depression/anxiety EtOH use History bilateral cataracts Chronic dizziness Acetaminophen for fever Ladora/as needed morphine for pain management Patient on meclizine 12.5 mg 3 times a day as needed for dizziness at home. This has been held currently. Resume when clinically indicated CV: Atrial fibrillation Hypertension Dyslipidemia Grade 1 diastolic heart failure Currently on metoprolol 25 mg by mouth twice a day for blood pressure/A. fib controlled rate control Switch to metoprolol 12.5 mg by J-tube twice a day At home on lisinopril 20 mg by mouth daily for hypertension. 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 No residual pneumothorax on chest x-ray Duo nebs every 4 hours and as needed #20 Kuwaiti Chest tubes -20 cmH2O. 200 cc SS output GI: Severe protein calorie malnutrition Esophageal stricture with failed esophageal dilatation attempt this admission with 10/11 Kuwaiti dilators Gastroesophageal reflux disease Status post jejunostomy tube day 2 Start feeding O with vital 1.5 goal 60 cc an hour Started TPN 05/24 discontinue today when they completed Patient is on Protonix 40 mg IV daily. Prilosec 20 mg by mouth daily home Glycerin suppository bowel regimen Start Colace/Senokot/MiraLAX via J-tube : Arce will be placed if indicated for accurate I's and O's in a critically ill patient Endo: Hypothyroidism Diabetes mellitus Continue with Levoxyl 100 g by mouth daily Sliding scale insulin in order to maintain euglycemia. Low regimen every 6 hours discontinue Levemir Renal: Acute kidney injury with postobstructive resolving Maintain Arce Check urine electrolytes/eosinophils Monitor urine output carefully. Heme: Normocytic anemia Follow CBC/CMP daily ID: Proteus/Enterobacter pneumonia Pseudomonas pneumonia Day #8 Rocephin 2 g IV 24 hours be discontinued today. Start Levaquin 750 mg IV every 48 hours day #2 Pertinent cultures 05/20 - blood cultures 2 - no growth 05/20 - sputum - Proteus Mirabella/Enterobacter aeruginosa is pansensitive / - blood cultures 2 -no growth to date / - sputum --Pseudomonas FEN: Hypokalemia - resolved Replace per ICU electrolyte protocol. MSK: Severe debilitation On vitamin D 3 2000 units daily. Is currently on hold. Resume when clinically indicated PT evaluate and treat Access - Utilize right upper extremity PICC line day #7 Prophylaxis - GI - Protonix - DVT - SCD/Lovenox Critical Care: The total critical care time was 35 minutes. Time to perform other separately billable procedures was not included in the critical care time. Jose Stafford MD May 30, 2016 12:23
[2016-05-30] MEDS ORDERED: POTASSIUM CHLORIDE 25 MEQ EFFERVESCENT TAB PO ONE (12:30)
[2016-05-30] MEDS ORDERED: POLYETHYLENE GLYCOL 17 GM PKG PO ONE (12:30)
[2016-05-30] MEDS ORDERED: SENNOSIDES SYRUP 8.8 MG/5 ML CUP PO ONE (12:30)
[2016-05-30] MEDS: METOPROLOL TARTRATE 25 MG TAB PO SCH ×2 (13:46→21:07)
[2016-05-30] MEDS: MAGNESIUM SULFATE 1 GM PREMIX 100 ML IV SCH ×2 (13:46→13:50)
[2016-05-30] MEDS: DOCUSATE SODIUM 100 MG/10 ML UDC PO SCH (21:07)
[2016-05-31] VITALS (12 sets, daily range): BP systolic 92–129; BP diastolic 52–70; PULSE 82–104; RESP 13–21; TEMP 97.5–97.8; O2SAT 95–98
[2016-05-31] MEDS: RESP: ALBUTEROL 2.5 MG/IPRATROPIUM 0.5 MG NEB (SCH) NEB ×2 (03:22→09:24)
[2016-05-31] MEDS: INSULIN NovoLIN REGULAR SUPPLEMENTAL SCALE SQ SCH ×3 (04:00→12:00)
[2016-05-31] MEDS ORDERED: LEVOTHYROXINE SODIUM 100 MCG TAB PO SCH (06:00)
[2016-05-31] MEDS: METOPROLOL TARTRATE 25 MG TAB PO SCH ×2 (06:00→13:03)
[2016-05-31 06:08] LABS: AUTOMATED NEUTROPHIL # 4.7 TH/MM3 (1.8-7.7); BASOPHIL % 0.4 % (0.0-2.0); EOSINOPHIL # 0.1 TH/MM3 (0-0.4); EOSINOPHIL % 2.4 % (0.0-4.0); HEMATOCRIT 24.1 % (39.0-51.0); HEMO FLAGS DIFF FINAL; LYMPH % 7.4 % (9.0-44.0); LYMPHOCYTE # 0.4 TH/MM3 (1.0-4.8); MEAN CELL VOLUME 92.4 FL (80.0-100.0); MEAN CORPUSCULAR HEMOGLOBIN 31.3 PG (27.0-34.0); MEAN CORPUSCULAR HGB CONC 33.9 % (32.0-36.0); MONO % 8.7 % (0.0-8.0); NEUT % 81.1 % (16.0-70.0); PLATELET COUNT 132 TH/MM3 (150-450); RED CELL DISTRIBUTION WIDTH 14.8 % (11.6-17.2); WHITE BLOOD COUNT 5.8 TH/MM3 (4.0-11.0)
--- NOTE | 2016-05-31 06:10 | RADRPT ---
EXAM DATE/TIME: 05/31/2016 04:50 [place] COMPARISON: CHEST SINGLE AP, May 30, 2016, 5:30. INDICATIONS : Shortness of breath. MEDICAL HISTORY : None. SURGICAL HISTORY : None. ENCOUNTER: Subsequent ACUITY: 1 week PAIN SCORE: Non-responsive. LOCATION: Bilateral chest FINDINGS: The pulmonary apices are included in the [id number]. Left chest drainage tube tip remains project ed at the left apex. Apical left pneumothorax is similar in configuration to prior. Right PICC line catheter tip distal superior vena cava. There is persistent consolidation of left mid and lower deborah g with loss of delineation of the entire left hemidiaphragm. Right pleural effusion tracking along t he lower lateral right chest similar to prior examination. There is loss of delineation of the right hemidiaphragm. CONCLUSION: 1. Persistent left apical pneumothorax with chest tube in place. 2. Persistent left lower lobe consolidation and moderate size right pleural effusion. Earnest Engel MD on May 31, 2016 at 6:07 Board Certified Radiologist. This report was verified electronically.
[2016-05-31] MEDS: MORPHINE SULFATE 4 MG/ML INJ IV PUSH PRN ×2 (06:14→10:20)
[2016-05-31 06:25] LABS: ALT (GPT) 16 U/L (12-78); ANION GAP 6 MEQ/L (5-15); AST (GOT) 18 U/L (15-37); BICARBONATE 27.4 MEQ/L (21.0-32.0); BLOOD UREA NITROGEN 33 MG/DL (7-18); CHLORIDE 112 MEQ/L (98-107); GLOMERULAR FILTRATION RATE 136 ML/MIN (>89); POTASSIUM 3.8 MEQ/L (3.5-5.1); SODIUM (NA) 145 MEQ/L (136-145)
[2016-05-31 06:27] LABS: ALKALINE PHOSPHATASE 51 U/L (45-117); TOTAL BILIRUBIN ADULT 0.8 MG/DL (0.2-1.0)
[2016-05-31] MEDS: SODIUM CHLORIDE 0.9% FLUSH 5 ML FLUSH IVF SCH (07:44)
[2016-05-31] MEDS: DOCUSATE SODIUM 100 MG/10 ML UDC PO SCH (07:54)
[2016-05-31] MEDS: ENOXAPARIN SODIUM 40 MG/0.4 ML SYRINGE SQ SCH (07:54)
[2016-05-31] MEDS: CHOLECALCIFEROL (VIT D3) 1000 UNIT TAB PO SCH (08:00)
[2016-05-31] MEDS: BISACODYL 10 MG SUPP RECTAL SCH (08:35)
[2016-05-31] MEDS ORDERED: POLYETHYLENE GLYCOL 17 GM PKG PO SCH (09:00)
[2016-05-31] MEDS ORDERED: SENNOSIDES SYRUP 8.8 MG/5 ML CUP PO SCH (09:00)
[2016-05-31] MEDS: LEVOFLOXACIN 750 MG PREMIX INJ 150 ML IV SCH (10:21)
[2016-05-31] MEDS: PANTOPRAZOLE SODIUM 40 MG VIAL IV PUSH SCH (11:20)
--- NOTE | 2016-05-31 12:55 | HHI.CCPN ---
Subjective Remarks/Hospital Course 86-year-old white male admitted for evaluation of shortness of breath and weakness. Per medical record the patient last 2-3 days has noted increasing shortness of breath, decreased exercise tolerance, increased cough and malaise. He has not been able to eat. With each attempt to eat he gags, chokes and vomits. He has a history of head and neck cancer. He has a tracheostomy. He is feeling short of breath and having some colored sputum. He was [facility] where he was found on a floor today also hypoxic. [facility] medicine was consulted to help to manage patient's hypoxemia. 05/23: Patient with large left-sided pneumothorax. Originally pigtail catheter placed over the wound did not reinflated for a 20 Syrian chest tube was placed and lungs currently inflated. Oxygen saturations currently 100 percent. 05/24: Increasing pneumothorax on chest x-ray this a.m., atrium change no saturations improved to 100%. Requesting tube feeds however unable to provide due to unstable medical status/esophageal stricture. IR will reattempt on Thursday. No bowel movement. 05/25/16: Currently afebrile. Pigtail catheter "fell out" yesterday. Lungs still inflated with small left hydropneumothorax. Appears comfortable at bedside. Remains tachycardic. Pain controlled chest tube site with as needed narcotics. One BM. 05/26/16: Afebrile. No pneumothorax on chest x-ray this AM. Remains on high flow oxygen through stoma. Worsening chest x-ray. Appears comfortable. Tolerating TPN. No bowel movement yesterday. 05/27/16: Afebrile. Plan for PEG tube placement today with IR. Decreased urine output noted. Diuretics have been held. Denies chest pain or shortness of breath currently. 05/28/16: Afebrile. Patient unable to have PEG tube placed by IR yesterday secondary to partial gastrectomy. Plan for jejunostomy tube. Per family request and patient request we'll consult palliative as patient wants to go home. 05/29/16: Afebrile. Plan for percutaneous jejunostomy tube placed today in OR. Noted patient states he wants to return home and "3 days". Still no bowel movement. Denies abdominal pain. 05/30: Status post jejunostomy tube placement without complication. At first, slight recurrence of pneumothorax on left side after clamping chest tube. Back to -20 cm water suction. SUBJECTIVE: 05/31: Afebrile. To hospice care center today. Persistent tiny left apical pneumothorax persists. Increasing suction to -30. Denies chest pressure strep. Adequate urine output. Tolerating jejunostomy feeds today Objective Vital Signs Date Time Temp Pulse Resp B/P Pulse Ox O2 Delivery O2 Flow Rate FiO2 05/31/16 12:00 104 05/31/16 12:00 97 Trach Collar 40 05/31/16 12:00 97.8 21 92/52 05/31/16 09:26 5.00 Intake and Output 05/30/16 05/30/16 05/31/16 08:00 16:00 00:00 Intake Total 437 ml 675 ml 751 ml Output Total 450 ml 875 ml 990 ml Balance -13 ml -200 ml -239 ml Result Diagram: 05/31/16 0550 05/31/16 0550 Other Results Microbiology Date/Time Procedure Status Source Growth 05/27/16 11:50 Gram Stain - Final Complete Sputum Expectorated Sputum 05/27/16 11:50 Sputum Culture - Final Complete Pseudomonas Aeruginosa Imaging Last Impressions Chest X-Ray 05/31/16 0600 Signed Impressions: Service Date/Time: Tuesday, May 31, 2016 04:50 - CONCLUSION: 1. Persistent left apical pneumothorax with chest tube in place. 2. Persistent left lower lobe consolidation and moderate size right pleural effusion. Earnest Engel MD Renal Ultrasound 05/29/16 0000 Signed Impressions: Service Date/Time: May 16:34 - CONCLUSION: 1. Distended urinary bladder of uncertain etiology but the patient would probably benefit from a Arce placement. 2. Apparent large bladder calculus. 3. Mild bilateral hydronephrosis etiology uncertain but conceivably related to the distended urinary bladder. 4. 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 Saravanan Maloney MD Abdomen X-Ray 05/26/16 0000 Signed Impressions: Service Date/Time: Thursday, May 26, 2016 15:44 - CONCLUSION: Benign-appearing abdomen. No obstruction or perceptible ileus. Saravanan Maloney MD Head CT 05/22/16 0000 Signed Impressions: Service Date/Time: April 21:22 - CONCLUSION: No bleed or other acute intracranial abnormality. Saravanan Maloney MD Modified Barium Swallow 05/21/16 0000 Signed Impressions: Service Date/Time: Saturday, May 21, 2016 10:25 - CONCLUSION: Postsurgical deformity of the cervical esophagus without evidence of penetration or aspiration as described. Please see speech pathology report Anastacio Young MD Objective Remarks GENERAL: 86-year-old male, critically ill and cachectic lying in bed in no acute distress SKIN: Warm and dry.. Multiple ecchymosis bilateral upper extremities HEAD: Normocephalic. EYES: No scleral icterus. No injection or drainage. NECK: Laryngeal TEP in place without signs of infection or inflammation. No JVD or lymphadenopathy. CARDIOVASCULAR: Tachycardic, irregular. S1, S2 no S4. Without M/C/G/R RESPIRATORY: Breath sounds decreased in the left lower lobe. Few crackles appreciated bilateral lower lobes. Left-sided 20 Syrian chest tube intact GASTROINTESTINAL: Abdomen cachectic, scaphoid and non-tender. Hypoactive bowel sounds are appreciated. Jejunostomy site clean dry and intact MUSCULOSKELETAL: No significant peripheral edema. BACK: Nontender without obvious deformity. No CVA tenderness. Urinary Catheter: No Assessment to: Continue Vascular Central Line Catheter: Yes Assessment to: Continue Date of Insertion: May 24, 2016 Line: PICC Side: Right Location: Antecubital A/P Assessment and Plan Neuro/Psych: Depression/anxiety EtOH use History bilateral cataracts Chronic dizziness Acetaminophen for fever [place]/as needed morphine for pain management Patient on meclizine 12.5 mg 3 times a day as needed for dizziness at home. This has been held currently. Resume when clinically indicated CV: Atrial fibrillation Hypertension Dyslipidemia Grade 1 diastolic heart failure Currently on metoprolol 25 mg by mouth twice a day for blood pressure/A. fib controlled rate control Switch to metoprolol 12.5 mg by J-tube twice a day At home on lisinopril 20 mg by mouth daily for hypertension. 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 No residual pneumothorax on chest x-ray Duo nebs every 4 hours and as needed #20 Syrian Chest tubes -30 cmH2O. 890 cc SS output GI: Severe protein calorie malnutrition Esophageal stricture with failed esophageal dilatation attempt this admission with 10/11 Syrian dilators Gastroesophageal reflux disease Status post jejunostomy tube day 2 Start feeding O with vital 1.5 goal 60 cc an hour Started TPN 05/24 discontinue today when they completed Patient is on Protonix 40 mg IV daily. Prilosec 20 mg by mouth daily home Glycerin suppository bowel regimen Start Colace/Senokot/MiraLAX via J-tube : Arce will be placed if indicated for accurate I's and O's in a critically ill patient Endo: Hypothyroidism Diabetes mellitus Continue with Levoxyl 100 g by mouth daily Sliding scale insulin in order to maintain euglycemia. Low regimen every 6 hours discontinue Levemir Renal: Acute kidney injury with postobstructive resolving Maintain Arce Check urine electrolytes/eosinophils Monitor urine output carefully. Heme: Normocytic anemia Follow CBC/CMP daily ID: Proteus/Enterobacter pneumonia Pseudomonas pneumonia Day #8 Rocephin 2 g IV 24 hours be discontinued today. Start Levaquin 750 mg IV every 48 hours day #3 of 14 Pertinent cultures 05/20 - blood cultures 2 - no growth 05/20 - sputum - Proteus Mirabella/Enterobacter aeruginosa is pansensitive 05/21 - blood cultures 2 -no growth to date 05/27 - sputum --Pseudomonas FEN: Hypokalemia - resolved Replace per ICU electrolyte protocol. MSK: Severe debilitation On vitamin D 3 2000 units daily. Is currently on hold. Resume when clinically indicated PT evaluate and treat Access - Utilize right upper extremity PICC line day #8 Prophylaxis - GI - Protonix - DVT - SCD/Lovenox Critical Care: The total care time was 35 minutes. Time to perform other separately billable procedures was not included in the critical care time. Plan is to send to hospice care center today with chest tube in place 30 cm H2O. Maintain PICC. Care plan discussed with patient. All questions answered. Jose Stafford MD May 31, 2016 12:55
[2016-05-31] MEDS ORDERED: LEVO.1 PO (13:03)
[2016-05-31] MEDS ORDERED: DOCU100S PO (13:03)
[2016-05-31] MEDS ORDERED: IPRASOL NEB (13:03)
[2016-05-31] MEDS ORDERED: LEVA750T PO (13:03)
--- NOTE | 2016-05-31 13:06 | HHI.DS ---
Discharge Summary Admission Date May 20, 2016 at 17:06 Admitting Diagnosis sepsis, leukocytosis, history of A. fib with RVR, dyspnea, dehydrati (1) Dysphagia ICD Code: R13.10 (2) Protein calorie malnutrition ICD Code: E46 Procedures Left chest tube #20 Left chest tube #8 Serbian pigtail Jejunostomy tube placement Brief History History from patient, ER PA communication, and review of medical records. Patient reported that he came to the hospital because he has not been able to get out of bed for more than 5 seconds, not able to walk for more than 15 steps , with associated dizziness every time he moves his head up and down. He also stated that every time he tries to get up, his heart rate would go very high. He reports that he did have surgery done for the head and neck cancer. He is noted to be on tracheostomy. She states that she has been on it for at least past one year. His cancer was diagnosed 30 years ago. He states that he sees his ENT doctor for this tracheostomy and did have to go through dilations because of the stoma being too narrow. He does report sometimes food getting stuck there. Patient reports that he was being offered feeding tube by his doctor for PEG tube placement previously. However he is initially not agreeable to this and he was still continuing to take his medications and food by mouth. He denies any fever at home. Denies any significant cough. He is noted to be coughing though. He states this is chronic. Denies any nausea/vomiting/diarrhea/urinary burning or pain on urination. Next I denies any hematemesis/hematochezia/melena/hematuria. Patient reports he has been having this trach tube for the past 1 year. He reports he takes care of it himself at home. 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 However states that she is not able to care for him. He states he still driving. CBC/BMP: 05/31/16 0550 05/31/16 0550 Significant Findings Laboratory Tests Test 05/29/16 05/30/16 05/30/16 05/31/16 03:26 04:10 04:50 05:50 Red Blood Count 2.65 MIL/MM3 2.56 MIL/MM3 2.60 MIL/MM3 (4.50-5.90) (4.50-5.90) (4.50-5.90) Hemoglobin 8.6 GM/DL 8.0 GM/DL 8.2 GM/DL (13.0-17.0) (13.0-17.0) (13.0-17.0) Hematocrit 24.5 % 23.8 % 24.1 % (39.0-51.0) (39.0-51.0) (39.0-51.0) Platelet Count 149 TH/MM3 124 TH/MM3 132 TH/MM3 (150-450) (150-450) (150-450) Neutrophils (%) (Auto) 85.3 % 80.5 % 81.1 % (16.0-70.0) (16.0-70.0) (16.0-70.0) Lymphocytes (%) (Auto) 4.5 % 6.1 % 7.4 % (9.0-44.0) (9.0-44.0) (9.0-44.0) Monocytes (%) (Auto) 8.7 % (0.0-8.0) 11.0 % 8.7 % (0.0-8.0) (0.0-8.0) Neutrophils # (Auto) 8.0 TH/MM3 (1.8-7.7) Lymphocytes # (Auto) 0.4 TH/MM3 0.3 TH/MM3 0.4 TH/MM3 (1.0-4.8) (1.0-4.8) (1.0-4.8) Chloride Level 108 MEQ/L 112 MEQ/L 112 MEQ/L (98-107) (98-107) (98-107) Blood Urea Nitrogen 47 MG/DL (7-18) 42 MG/DL (7-18) 33 MG/DL (7-18) Creatinine 1.84 MG/DL 0.57 MG/DL (0.60-1.30) (0.60-1.30) Estimat Glomerular Filtration 35 ML/MIN (>89) 70 ML/MIN (>89) Rate Calcium Level 7.5 MG/DL 7.6 MG/DL 7.9 MG/DL (8.5-10.1) (8.5-10.1) (8.5-10.1) Total Protein 4.9 GM/DL 4.4 GM/DL 4.5 GM/DL (6.4-8.2) (6.4-8.2) (6.4-8.2) Albumin 2.6 GM/DL 2.2 GM/DL 2.1 GM/DL (3.4-5.0) (3.4-5.0) (3.4-5.0) Random Glucose 128 MG/DL 117 MG/DL (74-106) (74-106) Aspartate Amino Transf 12 U/L (15-37) (AST/SGOT) Imaging Last Impressions Chest X-Ray 05/31/16 0600 Signed Impressions: Service Date/Time: Tuesday, May 31, 2016 04:50 - CONCLUSION: 1. Persistent left apical pneumothorax with chest tube in place. 2. Persistent left lower lobe consolidation and moderate size right pleural effusion. Earnest Engel MD Renal Ultrasound 05/29/16 0000 Signed Impressions: Service Date/Time: May 16:34 - CONCLUSION: 1. Distended urinary bladder of uncertain etiology but the patient would probably benefit from a Arce placement. 2. Apparent large bladder calculus. 3. Mild bilateral hydronephrosis etiology uncertain but conceivably related to the distended urinary bladder. 4. 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 Saravanan Maloney MD Abdomen X-Ray 05/26/16 0000 Signed Impressions: Service Date/Time: Thursday, May 26, 2016 15:44 - CONCLUSION: Benign-appearing abdomen. No obstruction or perceptible ileus. Saravanan Maloney MD Head CT 05/22/16 0000 Signed Impressions: Service Date/Time: April 21:22 - CONCLUSION: No bleed or other acute intracranial abnormality. Saravanan Maloney MD Modified Barium Swallow 05/21/16 0000 Signed Impressions: Service Date/Time: Saturday, May 21, 2016 10:25 - CONCLUSION: Postsurgical deformity of the cervical esophagus without evidence of penetration or aspiration as described. Please see speech pathology report Anastacio Young MD PE at Discharge GENERAL: This is a cachectic elderly gentleman in no apparent distress. SKIN: No rashes, ecchymoses or lesions. Cool and dry. HEAD: Atraumatic. Normocephalic. No temporal or scalp tenderness. Temporal wasting. EYES: Pupils equal round and reactive. Extraocular motions intact. No scleral icterus. No injection or drainage. ENT: Nose without bleeding, purulent drainage or septal hematoma. Throat without erythema, tonsillar hypertrophy or exudate. Uvula midline. Airway patent. NECK: Trachea midline. No JVD or lymphadenopathy. Supple, nontender, no meningeal signs. CARDIOVASCULAR: Regular rate and rhythm without murmurs, gallops, or rubs. RESPIRATORY: Clear to auscultation. Breath sounds equal bilaterally. No wheezes , rales, or rhonchi. GASTROINTESTINAL: Abdomen soft, non-tender, nondistended. No hepato-splenomegaly , or palpable masses. No guarding. MUSCULOSKELETAL: Extremities without clubbing, cyanosis, or edema. No joint tenderness, effusion, or edema noted. NEUROLOGICAL: Awake and alert. Motor and sensory grossly within normal limits. Unable to speak. PSYCH: Mood and affect appropriate. Transfer Summary Neuro/Psych: Depression/anxiety EtOH use History bilateral cataracts Chronic dizziness Acetaminophen for fever [place]/as needed morphine for pain management Patient on meclizine 12.5 mg 3 times a day as needed for dizziness at home. This has been held currently. Resume when clinically indicated CV: Atrial fibrillation Hypertension Dyslipidemia Grade 1 diastolic heart failure Currently on metoprolol 25 mg by mouth twice a day for blood pressure/A. fib controlled rate control Switch to metoprolol 12.5 mg by J-tube twice a day At home on lisinopril 20 mg by mouth daily for hypertension. 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 No residual pneumothorax on chest x-ray Duo nebs every 4 hours and as needed #20 Serbian Chest tubes -30 cmH2O. 890 cc SS output GI: Severe protein calorie malnutrition Esophageal stricture with failed esophageal dilatation attempt this admission with / Serbian dilators Gastroesophageal reflux disease Status post jejunostomy tube day 2 Start feeding O with vital 1.5 goal 60 cc an hour Started TPN 05/24 discontinue today when they completed Patient is on Protonix 40 mg IV daily. Prilosec 20 mg by mouth daily home Glycerin suppository bowel regimen Start Colace/Senokot/MiraLAX via J-tube : Arce will be placed if indicated for accurate I's and O's in a critically ill patient Endo: Hypothyroidism Diabetes mellitus Continue with Levoxyl 100 g by mouth daily Sliding scale insulin in order to maintain euglycemia. Low regimen every 6 hours discontinue Levemir Renal: Acute kidney injury with postobstructive resolving Maintain Arce Check urine electrolytes/eosinophils Monitor urine output carefully. Heme: Normocytic anemia Follow CBC/CMP daily ID: Proteus/Enterobacter pneumonia Pseudomonas pneumonia Day #8 Rocephin 2 g IV 24 hours be discontinued today. Start Levaquin 750 mg IV every 48 hours day #3 of 14 Pertinent cultures 05/20 - blood cultures 2 - no growth 05/20 - sputum - Proteus [place]abella/Enterobacter aeruginosa is pansensitive 05/21 - blood cultures 2 -no growth to date 05/27 - sputum --Pseudomonas FEN: Hypokalemia - resolved Replace per ICU electrolyte protocol. MSK: Severe debilitation On vitamin D 3 2000 units daily. Is currently on hold. Resume when clinically indicated PT evaluate and treat Access - Utilize right upper extremity PICC line day #8 Prophylaxis - GI - Protonix - DVT - SCD/Lovenox Critical Care: The total care time was 35 minutes. Time to perform other separately billable procedures was not included in the critical care time. Plan is to send to hospice care center today with chest tube in place 30 cm H2O. Maintain PICC. Care plan discussed with patient. All questions answered. Hospital Course 86-year-old white male admitted for evaluation of shortness of breath and weakness. Per medical record the patient last 2-3 days has noted increasing shortness of breath, decreased exercise tolerance, increased cough and malaise. He has not been able to eat. With each attempt to eat he gags, chokes and vomits. He has a history of head and neck cancer. He has a tracheostomy. He is feeling short of breath and having some colored sputum. He was [facility] where he was found on a floor today also hypoxic. [facility] medicine was consulted to help to manage patient's hypoxemia. 05/23: Patient with large left-sided pneumothorax. Originally pigtail catheter placed over the wound did not reinflated for a 20 Serbian chest tube was placed and lungs currently inflated. Oxygen saturations currently 100 percent. 05/24: Increasing pneumothorax on chest x-ray this a.m., at[facility] change no saturations improved to 100%. Requesting tube feeds however unable to provide due to unstable medical status/esophageal stricture. IR will reattempt on Thursday. No bowel movement. 05/25/16: Currently afebrile. Pigtail catheter "fell out" yesterday. Lungs still inflated with small left hydropneumothorax. Appears comfortable at bedside. Remains tachycardic. Pain controlled chest tube site with as needed narcotics. One BM. 05/26/16: Afebrile. No pneumothorax on chest x-ray this AM. Remains on high flow oxygen through stoma. Worsening chest x-ray. Appears comfortable. Tolerating TPN. No bowel movement yesterday. 05/27/16: Afebrile. Plan for PEG tube placement today with IR. Decreased urine output noted. Diuretics have been held. Denies chest pain or shortness of breath currently. 05/28/16: Afebrile. Patient unable to have PEG tube placed by IR yesterday secondary to partial gastrectomy. Plan for jejunostomy tube. Per family request and patient request we'll consult palliative as patient wants to go home. 05/29/16: Afebrile. Plan for percutaneous jejunostomy tube placed today in OR. Noted patient states he wants to return home and "3 days". Still no bowel movement. Denies abdominal pain. 05/30: Status post jejunostomy tube placement without complication. At first, slight recurrence of pneumothorax on left side after clamping chest tube. Back to -20 cm water suction. SUBJECTIVE: 05/31: Afebrile. To hospice care center today. Persistent tiny left apical pneumothorax persists. Increasing suction to -30. Denies chest pressure strep. Adequate urine output. Tolerating jejunostomy feeds today Pt Condition on Discharge: Stable Discharge Disposition: Hospice/Med Facility Discharge Instructions DIET: Follow Instructions for: On Tube Feeding Additional Diet Instructions: Vital 1.5 at 60 cc an hour Activities you can perform: Non Weight Bearing Jose Stafford MD May 31, 2016 13:06
[2016-05-31] MEDS ORDERED: MORPHINE SULFATE 4 MG/ML INJ IV PUSH PRN ×2 (13:15)
[2016-06-01] MEDS ORDERED: LEVOFLOXACIN 750 MG PREMIX INJ 150 ML IV SCH (10:00)
== END 2016-05-31 17:30 | disposition hospice, inpatient (51) | DRG 391 ==
LOC: NEPE 14:03 → NEDA 17:06 → N07B 20:48 → N07A 21:18 → N03B 05-22 21:33
PROVIDERS: ADMIT Hospitalist; ATTEND Internal Medicine Critical Care Medicine
PROC: 0D718ZZ Dilation of Upper Esophagus, Via Natural or Artificial Opening Endoscopic (ICD-10-PCS; principal; 2016-05-22 16:30)
PROC: 0W9B30Z Drainage of Left Pleural Cavity with Drainage Device, Percutaneous Approach (ICD-10-PCS; 2016-05-23)
PROC: 02HV33Z Insertion of Infusion Device into Superior Vena Cava, Percutaneous Approach (ICD-10-PCS; 2016-05-24)
PROC: 0DHA0UZ Insertion of Feeding Device into Jejunum, Open Approach (ICD-10-PCS; 2016-05-29)
DX: K22.2 Esophageal obstruction (principal); J96.01 Acute respiratory failure with hypoxia; E43 Unspecified severe protein-calorie malnutrition; J15.6 Pneumonia due to other Gram-negative bacteria; J15.1 Pneumonia due to Pseudomonas; J94.8 Other specified pleural conditions; N17.9 Acute kidney failure, unspecified; Z93.0 Tracheostomy status; I50.32 Chronic diastolic (congestive) heart failure; R64 Cachexia; J93.9 Pneumothorax, unspecified; Z68.1 Body mass index [BMI] 19.9 or less, adult; I48.91 Unspecified atrial fibrillation; E87.6 Hypokalemia; E03.9 Hypothyroidism, unspecified; K21.9 Gastro-esophageal reflux disease without esophagitis; I10 Essential (primary) hypertension; R53.81 Other malaise; R62.7 Adult failure to thrive; K66.0 Peritoneal adhesions (postprocedural) (postinfection); Z51.5 Encounter for palliative care; D64.9 Anemia, unspecified; K27.9 Peptic ulcer, site unspecified, unspecified as acute or chronic, without hemorrhage or perforation; S00.01XA Abrasion of scalp, initial encounter; W06.XXXA Fall from bed, initial encounter; Y92.230 Patient room in hospital as the place of occurrence of the external cause; R53.1 Weakness; K59.00 Constipation, unspecified; F32.9 Major depressive disorder, single episode, unspecified; F41.9 Anxiety disorder, unspecified; I95.1 Orthostatic hypotension; Z85.21 Personal history of malignant neoplasm of larynx; Z85.810 Personal history of malignant neoplasm of tongue; Z92.3 Personal history of irradiation; Z92.21 Personal history of antineoplastic chemotherapy; Z87.891 Personal history of nicotine dependence; Z91.041 Radiographic dye allergy status
CPT/HCPCS: 32551; 36430; 36556; 36569; 36600; 70450; 71010; 74000; 74230; 76000; 76775; 76937; 80048; 80053; 81001; 82570; 82805; 82948; 83605; 83690; 83735; 83880; 84100; 84132; 84155; 84300; 84443; 84478; 84484; 85007; 85025; 85027; 85384; 85610; 85730; 86850; 86900; 86901; 86920; 87040; 87070; 87077; 87186; 87205; 87641; 93005; 94640; 94664; 96361; 96374; 99144; 99152; C1769; C1887; C9113; J0690; J0696; J1610; J1642; J1650; J1940; J1956; J2212; J2250; J2270; J2543; J3010; J3475; J3480; J7030; J7040; J7042; J7050; J7120; J7613; P9016; P9047